=== PATIENT | female | born 1955 | race Caucasian/White ===

== ENCOUNTER 2020-10-25 14:46 | Outpatient (REF) | payer MEDICARE, OTHER, SELFPAY ==
[2020-10-25 16:03] LABS: MANUAL DIFF FLAG NO
[2020-10-25 16:14] LABS: Basophils Percent Auto 0.6 % (0-2); Eosinophils Absolute Auto 0.1 X10*3/uL (0.0-0.4); Eosinophils Percent Auto 1.8 % (0-4); Hematocrit 41.3 % (37-47); Hemoglobin 13.5 g/dl (12.0-16.0); Imm Gran Abs Auto 0.01 X10*3/uL (0.00-0.03); Imm Gran Pct Auto 0.1 % (0.0-0.4); Lymphocytes Absolute Auto 2.4 X10*3/uL (1.2-4.9); Lymphocytes Percent Auto 33.6 % (20-40); Mean Corpuscular HGB Conc 32.7 g/dl (31.0-35.0); Mean Corpuscular Hemoglobin 30.2 pg (27.0-33.0); Mean Corpuscular Volume 92.4 fL (80-98); Mean Platelet Volume 10.4 fL (9.4-12.3); Monocytes Absolute Auto 0.5 X10*3/uL (0.1-1.2); Monocytes Percent Auto 6.6 % (2-11); Neutrophils Absolute Auto 4.1 X10*3/uL (2.0-8.3); Neutrophils Percent Auto 57.3 % (45-73); Platelet Count 275 X10*3/uL (160-400); Red Blood Count 4.47 X10*6/uL (4.20-5.50); Red Cell Distribution Width 13.1 % (11.0-16.0); White Blood Count 7.2 X10*3/uL (4.8-10.8)
[2020-10-25 17:04] LABS: Erythrocyte Sedimentation Rate 3 MM/HR (0-20)
[2020-10-28 16:42] LABS: Immunoglobulin G Subclass 1 361 mg/dL (382-929); Immunoglobulin G Subclass 2 292 mg/dL (241-700); Immunoglobulin G Subclass 3 31 mg/dL (22-178); Immunoglobulin G Subclass 4 33.5 mg/dL (4-86); Immunoglobulin G Total 836 mg/dL (600-1540)
== END 2020-10-25 14:47 | disposition home or self-care (01) ==
LOC: HO.LAB 14:46
PROVIDERS: PCP Family Medicine; Visit Provider Hospitalist
DX: J42 Unspecified chronic bronchitis (principal); R06.00 Dyspnea, unspecified; G47.33 Obstructive sleep apnea (adult) (pediatric); Z79.899 Other long term (current) drug therapy
CPT/HCPCS: 36415; 82784; 82785; 85025; 85652; 86003; 99202

== ENCOUNTER → 2020-11-11 13:57 | Outpatient (REF) | payer MEDICARE, OTHER, SELFPAY | LOC: HO.SL 13:57 | PROVIDERS: PCP Family Medicine; Visit Provider Hospitalist | DX: Z13.89 Encounter for screening for other disorder (principal) ==

== ENCOUNTER 2020-11-15 13:02 | Outpatient (REF) | payer MEDICARE, OTHER, SELFPAY ==
--- NOTE | 2020-11-15 15:46 | PFT_ITS ---
FLOWS: FEV1 89% of predicted at 2.37 L. FVC 78% of predicted at 2.73 L. FEV1 to FVC ratio of 0.87. No bronchodilator response. LUNG VOLUMES: Total lung capacity 82% of predicted at 4.53 L. Residual volume 79% of predicted at 1.80 L. Slow vital capacity 84% of predicted at 2.72 L. Expiratory reserve volume 59% of predicted at 0.52 L. Diffusion capacity is mildly decreased, diffusion capacity corrects to normal after adjustment for alveolar ventilation. IMPRESSION: No obstructive or restrictive ventilatory defect. No bronchodilator response. Essentially normal pulmonary function test. MD JAQUELINE Santos/MODL / [id number]
== END 2020-11-15 13:03 | disposition home or self-care (01) ==
LOC: HO.RESP 13:02
PROVIDERS: PCP Family Medicine; Visit Provider Hospitalist
DX: R06.00 Dyspnea, unspecified (principal)
CPT/HCPCS: 94060; 94727; 94729

== ENCOUNTER → 2020-11-25 14:51 | Outpatient (BNVA) | payer MEDICARE, OTHER, SELFPAY | PROVIDERS: PCP Family Medicine; Visit Provider Hospitalist | DX: J40 Bronchitis, not specified as acute or chronic (principal); J98.4 Other disorders of lung; R06.02 Shortness of breath; G47.33 Obstructive sleep apnea (adult) (pediatric); M41.9 Scoliosis, unspecified; Z88.8 Allergy status to other drugs, medicaments and biological substances; Z79.899 Other long term (current) drug therapy | CPT/HCPCS: 99212 ==

== ENCOUNTER → 2020-11-27 09:49 | Outpatient (REF) | payer MEDICARE, OTHER, SELFPAY | LOC: HO.SL 09:49 | PROVIDERS: PCP Family Medicine; Visit Provider Hospitalist | DX: G47.33 Obstructive sleep apnea (adult) (pediatric) (principal) | CPT/HCPCS: 95806 ==

== ENCOUNTER → 2020-12-16 13:05 | Outpatient (BNVA) | payer MEDICARE, OTHER, SELFPAY | PROVIDERS: PCP Family Medicine; Visit Provider Hospitalist | DX: J40 Bronchitis, not specified as acute or chronic (principal); J98.4 Other disorders of lung; R06.00 Dyspnea, unspecified; G47.33 Obstructive sleep apnea (adult) (pediatric); M41.9 Scoliosis, unspecified | CPT/HCPCS: 99212 ==

== ENCOUNTER → 2021-06-30 20:28 | Outpatient (REF) | payer MEDICARE, OTHER, SELFPAY | LOC: HO.SL 20:28 | PROVIDERS: PCP Physician Assistant; Visit Provider Hospitalist | DX: Z13.89 Encounter for screening for other disorder (principal) ==

== ENCOUNTER 2021-11-19 11:09 | Outpatient (REF) | payer MEDICARE, OTHER, SELFPAY ==
--- NOTE | ~2021-11-19 | XR_ITS ---
EXAMINATION: XR CHEST CLINICAL INFORMATION: Disorders of lung. COMPARISON: Thoracic spine 10/01/2020 TECHNIQUE: 2 views of the chest were obtained. FINDINGS: Lungs are well-expanded and clear of acute pneumonic process. There is band-like atelectasis or scarring left upper lobe. Heart size and pulmonary vascularity is normal. There is marked dextroscoliosis stabilized with a solitary Silva willis extending from T5 to L2 vertebra. No other gross bony or the body seen. XR/XR chest 2V IMPRESSION: 1. No acute cardiopulmonary process seen. 2. There is likely chronic scarring left upper lobe. 3. No major change in dextroscoliosis and a solitary Silva willis stabilizing it.
== END 2021-11-19 11:10 | disposition home or self-care (01) ==
LOC: HO.XRAY 11:09
PROVIDERS: PCP Physician Assistant; Visit Provider Hospitalist
DX: J40 Bronchitis, not specified as acute or chronic (principal); J98.4 Other disorders of lung; M41.9 Scoliosis, unspecified; R06.00 Dyspnea, unspecified; G47.34 Idiopathic sleep related nonobstructive alveolar hypoventilation
CPT/HCPCS: 71046; 99212

== ENCOUNTER → 2022-05-18 20:30 | Outpatient (REF) | payer MEDICARE, OTHER, SELFPAY | LOC: HO.SL 20:30 | PROVIDERS: PCP Family Medicine; Visit Provider Hospitalist | DX: G47.33 Obstructive sleep apnea (adult) (pediatric) (principal) | CPT/HCPCS: 95810 ==

== ENCOUNTER → 2022-06-01 11:05 | Outpatient (BNVA) | payer MEDICARE, OTHER, SELFPAY | PROVIDERS: PCP Family Medicine; Visit Provider Hospitalist | DX: G47.33 Obstructive sleep apnea (adult) (pediatric) (principal); G47.34 Idiopathic sleep related nonobstructive alveolar hypoventilation; M41.9 Scoliosis, unspecified; J98.4 Other disorders of lung; R06.00 Dyspnea, unspecified | CPT/HCPCS: 99212 ==

== ENCOUNTER 2022-07-07 11:11 | Outpatient (REF) | payer MEDICARE, OTHER, SELFPAY ==
--- NOTE | ~2022-07-07 | XR_ITS ---
EXAMINATION: XR CHEST CLINICAL INFORMATION: Cough COMPARISON: 11/19/2021 TECHNIQUE: 2 views of the chest were obtained. FINDINGS: Spinal hardware noted. Scoliotic curvature of the spine. The lungs are well expanded. There is no focal consolidation, edema, or effusion. No pneumothorax. The cardiomediastinal silhouette is within normal limits. No acute osseous abnormality. XR/XR chest 2V IMPRESSION: No acute pulmonary finding.
== END 2022-07-07 11:12 | disposition home or self-care (01) ==
LOC: HO.HMGCX 11:11
PROVIDERS: PCP Family Medicine; Visit Provider Physician Assistant
DX: R05.9 Cough, unspecified (principal)
CPT/HCPCS: 71046

== ENCOUNTER → 2022-09-16 11:09 | Outpatient (BNVA) | payer MEDICARE, OTHER, SELFPAY | PROVIDERS: PCP Family Medicine; Visit Provider Hospitalist | DX: G47.33 Obstructive sleep apnea (adult) (pediatric) (principal); G47.34 Idiopathic sleep related nonobstructive alveolar hypoventilation; M41.9 Scoliosis, unspecified; J98.4 Other disorders of lung; R06.00 Dyspnea, unspecified; R60.0 Localized edema | CPT/HCPCS: 99212 ==

== ENCOUNTER → 2022-10-14 14:49 | Outpatient (REF) | payer MEDICARE, OTHER, SELFPAY ==
--- NOTE | 2022-10-14 15:16 | CA_ITS ---
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 The visually estimated ejection fraction is between 60-65%. Spectral Doppler is indicative of a normal filling pattern. Peak GLS is -18.3%, within normal limits. Right Ventricle Normal right ventricular cavity size and systolic function. Atria Both atria are normal in size. There is no evidence of interatrial shunt. Aortic Valve Normal aortic valve structure and function. There is no aortic valve stenosis. There is no aortic valve regurgitation. Mitral Valve Normal mitral valve structure and function. There is no mitral valve regurgitation. There is no mitral valve stenosis. Pulmonic Valve The pulmonic valve is likely normal. Tricuspid Valve Normal tricuspid valve structure. There is trace tricuspid valve regurgitation. The right ventricular systolic pressure is normal. Normal right atrial pressure. There is no evidence of pulmonary hypertension. Great Vessels All visible segments of the aorta are normal in size. The visualized portions of the pulmonary artery and branches are normal. Venous The inferior vena cava is normal in size and collapses greater than 50% with inspiration. Pericardium/Pleural There is no evidence of pericardial effusion. Prior Study Comparison No prior study available for comparison. Measurements 2D Linear Measurements IVSd: 0.88 0.6-0.9/0.6-1.0 cm LVIDd: 4.14 3.9-5.3/4.2-5.9 cm LVIDd Index: 2.27 2.4-3.2/2.2-3.1 cm/m2 LVIDs: 2.85 2.0-3.6 cm LVPWd: 0.86 0.7-1.1 cm Ao Root: 3.20 2.1-3.5 cm LA Diam: 3.20 2.7-3.8/3.0-4.0 cm LAIDs Index: 1.76 1.5-2.3 cm/m2 LV Mass: 138.28 67-162/88-224 g LV Mass Index: 75.98 43-95/49-115 g/m2 LVOT Diam: 1.90 3.0+(-)1.3 cm 2D Volumes LA Vol: 24.80 2D Systolic Function EF 4C: 58.70 >55% EF 2C: 66.60 >55% EF BiP: 62.60 >55% Mitral Valve MV Pk E: 0.83 MV PK A: 0.83 MV Decel Time: 219.00 E/A: 1.00 E'Lateral: 10.30 E'Medial: 9.79 E/E' Med: 8.50 E/E' Lat: 8.00 PHT: 64.00 MVA PHT: 3.[address] [place]: 3.78 Aortic Valve AoV Pk Ector: 1.31 AoV Mn Ector: 0.88 AoV VTI: 0.27 AoV Pk Grad: 7.00 Aov Mn Grad: 4.00 TAYLOR Cont.VTI: 2.20 LVOT LVOT Pk Ector: 1.10 LVOT Mn Ector: 0.70 LVOT VTI: 0.21 LVOT Pk Grad: 5.00 LVOT Mn Grad: 2.00 LVOT Diam: 1.90 LVOT Area: 2.84 Diastolic Function MV Pk E: 0.83 MV Pk A: 0.83 E/A: 1.00 E'Medial: 9.79 E/E' Med: 8.50 E' Laterial: 10.30 E/E' Lat: 8.00 Right Ventricle TAPSE (mm): 22.80 TVS' Ector: 11.70 Tricuspid Valve TR Pk Ector: 1.78 TR Pk Grad: 13.00 RA Press: 3.00 RVSP: 16.00 Great Vessels Aorta Ao Root-2D: 3.20 2.0-3.7 cm Ao Asc: 3.20 2.1-3.4 cm Pulmonary Valve PV Pk Ector: 0.94 Peak PV Grad: 4.00 Updated in Other Vendor System with Status of Final Sushant Barber MD electronically signed on 11/25/2022 12:47:12 PM with status of Final
== END ==
LOC: HO.CARD 14:49
PROVIDERS: PCP Family Medicine; Visit Provider Hospitalist
DX: I27.20 Pulmonary hypertension, unspecified (principal)
CPT/HCPCS: 93306

== ENCOUNTER 2022-12-23 11:16 | Outpatient (AMB) | payer MEDICARE, OTHER, SELFPAY ==
[2022-12-23 11:25] VITALS: BP 128/70; PULSE 71; O2SAT 100; BMI 25.5
--- NOTE | 2022-12-23 11:25 | MHC.OFFVIS ---
Intake Vital Signs 12/23/22 11:25 Height 5 ft 7 in Weight 163 lb 2.273 oz BMI 25.5 BP 128/70 Blood Pressure Location Lt brachial Position Sitting Pulse 71 Pulse Source Pulse Oximeter Pulse Oximetry (%) 100 Oxygen Delivery Method Room Air Intake Visit Reasons: Obstructive sleep apnea Crabber Required: No Allergies doxycycline [DOXYCYCLINE] Allergy (Severe, Verified 12/23/22 11:29) RASH methylprednisolone [From DEPO-MEDROL] Allergy (Severe, Verified 12/23/22 11:29) ANXIETY triamcinolone [From KENALOG] Allergy (Severe, Verified 12/23/22 11:29) ANXIETY HPI HPI Comments History of Present Illness Details Patient is a 67-year-old woman with a known history of significant scoliosis status post daniel placement. With significant back pain and worsening shortness of breath. The patient also has a history of significant allergies and asthma. She has been complaining worsening shortness of breath moderate severity. Sometimes she is hard for her to take a deep breath in. She feels is mainly due to the worsening scoliosis. She also complains of significant pain. She has chronic pain due to her significant scoliosis and surgical interventions. She is currently working closely with orthopedic surgery. She has had chest x-rays done in the past which were personally by me demonstrating the significant restriction due to her severe scoliosis. The patient also has significant he had daytime drowsiness. Her EPWORTH score is 10/24. She needs to have a sleep study at this time. 11/25/2020 patient is here for sick visit. The patient has been developing worsening cough shortness of breath for last several days. She denies any sick contacts. The patient not been vaccinated for COVID-19 as of yet. Based on worsening symptoms she should be tested. The meantime she is having hard expectorating. We did try to give a treatment with saline and Xopenex in the office see it would help expectorate better. She did feel some relief. Therefore will try hypertonic saline that she use home. Will also request a flutter valve that she can use after her nebulized treatment for her chest physical therapy. The patient significant scoliosis. We did repeat her pulmonary function studies recently and they did demonstrate a restrictive disease in this case related to significant scoliosis. We did compare these pulmonary function studies to her previous ones several years back they did demonstrate significant worsening of the restriction and now also with evidence diffusion impairment due to her limited expansion her lungs. Based on her pulmonary function studies, her worsening respiratory symptoms are largely due to her severe thoracic scoliosis with her failed Silva Daniel surgery. in order to improve her respiratory capacity the patient has optimized with nebulized therapy and chest physical therapy and this has been partially helpful. she does have an older lumbar brace which she does not provide her with enough support. More recently the patient did try the [employer] Peak Scoliosis Bracing system which significantly improved her respiratory symptoms. I do believe that the combination of the new TLSO brace and the respiratory therapy that the patient would have significant improvement in her pulmonary capacity and quality of life. We are still waiting for the results of her sleep study to also further address that question. 12/16/2020 the patient is here for a pulmonary follow-up visit. Since we last spoke the patient did get her brace approved and she has been very happy with the fact that has been helping. In the meantime she continues to have daytime drowsiness and significant snoring. Her Astoria score is indeed elevated 12/24. She did undergo a home sleep study and her study demonstrated significant snoring. However, her AHI was approximately 1.6 events per hour mainly with hypopneas. I did explain to the patient that at this point she does not qualify for CPAP. If however the patient continues to be symptomatic then we can consider an inpatient or in-lab study which she will provide more accurate information. In the meantime will try to work on her sleep. She does have significant insomnia. She has tried multiple medications in the past. She is able to fall asleep but a lot of times a staying asleep. She is willing to try trazodone at this time. In the meantime the patient was able to get her nebulizer from her [employer]. However, she has not gotten her Acapella valve. We did make a phone call to assist her to facilitate her chest physical therapy which will be helpful improving her respiratory status. 11/19/2021 the patient is here for a pulmonary follow-up visit. Since we last spoke she is complaining of worsening headaches. She also has daytime drowsiness with an Astoria score of 12/24. The patient did undergo an overnight oximetry demonstrating hypoxia, spending more than 6 minutes below 88%. The patient has underlying restrictive lung disease due to her scoliosis. This is likely contributing to her degree of hypoxia. The patient is also symptomatic. Will go ahead and start her on oxygen at nighttime. She already has oxygen that she was prescribed at some point because of her cluster headaches. However I will get in touch with the [employer] company to make sure that they are providing her with the concentrator that she can use at nighttime for oxygen. She will call in to 3 weeks to give us a report on her response to therapy. In meantime she continues to use her respiratory therapy with good effect. She has been using the trazodone for sleep. Otherwise the patient is without any other complaints. 06/01/2022 the patient is here for a pulmonary follow-up visit. She has multiple complaints. First of all she did go for in-lab sleep study. Unfortunately with all 4 experience for her. She felt unsafe getting to the parking lot and then when she made it into the room she was very uncomfortable. She has multiple complaints. I reached out to administration in order for her to be able to speak to somebody regarding her complaints to try to make get a better experience. In the meantime the results were nondiagnostic. She was awake all night and she was not able to get proper sleep in order to assess the question of sleep apnea. She continues use the oxygen at nighttime. Although on the 2 L was causing her to get nauseous and headaches. She also started developing some unsteadiness on her feet and some tingling in the hands. Therefore she stopped decreased down to 1.5 L and she was still getting the same issues. She is not sure his the oxygen or another issue. At this point she is going to hold off on the oxygen until her symptoms are better and then she is going to restarted 1 L per minute. Hopefully she can tolerate the lower dose until we can get a sleep study. She is going to continue to need a repeat sleep study. Her Astoria score still elevated 12/24. The patient needs to undergo a proper in-lab sleep study. I am hoping that if we can mitigate the issues that she had previously so we can redo her study. 09/16/2022 the patient is here for pulmonary follow-up visit. Overall she is doing fair. She does complaint of episodic fevers and arthralgias along with shortness of breath. She does have a diagnosis of arthritis and fibromyalgia. This are reasonable of to COVID to assess for autoimmune conditions specially since her symptoms may be all connected. In addition to that she has noticed lower extremity edema. This is not common for her. She has been wearing compression stockings. The patient continues to have daytime drowsiness. The patient is working with her primary care doctor to have the in-lab sleep study done elsewhere which she can have a better experience and also had better results. Her Astoria score continues to be elevated at over 24. She continues to respond well to the oxygen at nighttime. She wants to travel little bit and I did to make a to [employer] in order to allow her to find out ways for her to have some portability when she travels. 12/23/2022 the patient is here for pulmonary follow-up visit. She has multiple complaints. Primarily due to her sinus issue. She has been getting some sinus pressure primarily in the right side. Also affecting her right ear feels that going down to her neck area. This is resulting in headaches and also dizziness. She does have a appointment with ENT coming up in the next few weeks. In the meantime she does have some retraction of the tympanic membrane on the right and a little fluid on the left. Patient also has evidence of postnasal drip. She also describes a component vasomotor rhinitis with worsening postnasal drip and nasal discharge prior to eating. this postnasal drip results in a cough. From a respiratory status appears to be doing well. She is using her oxygen at nighttime. [facility] Medical History (Updated 12/23/22 @ 22:56 by Nik Enrique MD) Arthralgia Bronchitis Chronic restrictive lung disease Dyspnea Fever Lower extremity edema Nocturnal hypoxia ALTAF (obstructive sleep apnea) Severe scoliosis Social History (Updated 10/25/20 @ 14:58 by LISSA Tenorio) Patient Tobacco Use Status: Never used Tobacco Review of Systems Const Reports daytime sleepiness, Reports difficulty sleeping, Reports headache(s), Denies night sweats and Reports snoring ENT Denies change in voice, Reports dizziness, Reports headache(s), Denies lip swelling, Denies mouth pain, Reports nasal congestion, Reports nasal discharge and Denies tongue swelling Card Denies chest pain, Reports dyspnea and Reports dyspnea on exertion Resp Reports cough, Reports dyspnea, Reports dyspnea on exertion and Reports snoring GI Denies abdominal pain and Reports nausea Musc Reports back pain, Reports myalgias, Reports deformity, Reports arthralgias and Reports joint swelling Neuro Denies Neuro-related abnormal movements, Reports dizziness and Reports headache(s) Psych Denies no additional complaints Edil/Lymph Denies easy bleeding and Denies lymphadenopathy Aller/Immun Denies lip swelling and Denies tongue swelling Physical Exam Vital Signs: Last Vital Signs Pulse 71 12/23/22 11:25 BP 128/70 12/23/22 11:25 Pulse Ox 100 12/23/22 11:25 Oxygen Delivery Method Room Air 12/23/22 11:25 BMI result Body Mass Index 25.5 Const General: alert HEENT Ears: TM abnormal retracted on the right Throat: Yes postnasal drainage and Yes cobblestoning Neck Neck: Yes normal visual inspection, Yes full ROM and Yes no lymphadenopathy Chest Chest palpation & inspection: normal inspection of the chest Resp Auscultation: diminished lung sounds Cardio Rate: regular rate Rhythm: regular rhythm Heart sounds: S1 normal heart sound present and S2 normal heart sound present GI Palpation (GI): Soft to palpation and nontender Auscultation: normal bowel sounds Skin General skin exam: rashes and/or lesions noted Extrem General: No clubbing, No cyanosis and Yes edema Assessment & Plan Assessment & Plan (1) Sinusitis: Code(s): J32.9 - Chronic sinusitis, unspecified Qualifiers: Sinusitis location: unspecified location Chronicity: subacute Qualified Code(s): J01.90 - Acute sinusitis, unspecified (2) Severe scoliosis: Code(s): M41.9 - Scoliosis, unspecified (3) Chronic restrictive lung disease: Code(s): J98.4 - Other disorders of lung (4) Dyspnea: Code(s): R06.00 - Dyspnea, unspecified Qualifiers: Dyspnea type: dyspnea on exertion Qualified Code(s): R06.00 - Dyspnea, unspecified (5) Nocturnal hypoxia: Comment: due to her restrictive lung disease Code(s): G47.34 - Idiopathic sleep related nonobstructive alveolar hypoventilation (6) ALTAF (obstructive sleep apnea): Comment: High suspicion for ALTAF, need to repeat her sleep study Code(s): G47.33 - Obstructive sleep apnea (adult) (pediatric) Plan CPT with nebulized therapy with xopenex and hypertonic saline Acapella valve for CPT Oxygen 2 L/min while sleeping start Afrin only for 5 days Ipratropium nasal spray as needed Azythromycin x 5 days neti bottle rinsing No steroids due to adverse reactions F/U 4-6 months Medications: New azithromycin (12.5 mL) 500 mg orally; 5 days 63 mL 0RF ipratropium bromide administer into each nostril 2 sprays intranasal TID PRN 15 mL 6RF allergy symptoms Coding Level of Care Code Est Pt Level 4 (35362) Diagnoses Sinusitis J01.90 Sinusitis location: unspecified location Chronicity: subacute Severe scoliosis M41.9 Chronic restrictive lung disease J98.4 Dyspnea R06.00 Dyspnea type: dyspnea on exertion Nocturnal hypoxia G47.34 ALTAF (obstructive sleep apnea) G47.33 Time Spent (min) 18
== END 2022-12-23 11:52 | disposition home or self-care (01) ==
PROVIDERS: PCP Family Medicine; Visit Provider Hospitalist
DX: J01.90 Acute sinusitis, unspecified (principal); M41.9 Scoliosis, unspecified; J98.4 Other disorders of lung; R06.00 Dyspnea, unspecified; G47.34 Idiopathic sleep related nonobstructive alveolar hypoventilation; G47.33 Obstructive sleep apnea (adult) (pediatric)
CPT/HCPCS: 99214

== ENCOUNTER → 2022-12-23 11:16 | Outpatient (BNVA) | payer MEDICARE, OTHER, SELFPAY | PROVIDERS: PCP Family Medicine; Visit Provider Hospitalist | DX: G47.33 Obstructive sleep apnea (adult) (pediatric) (principal); G47.34 Idiopathic sleep related nonobstructive alveolar hypoventilation; J01.90 Acute sinusitis, unspecified; J98.4 Other disorders of lung; R06.00 Dyspnea, unspecified; M41.9 Scoliosis, unspecified | CPT/HCPCS: 99212 ==

== ENCOUNTER 2023-07-13 15:45 | Outpatient (REF) | payer MEDICARE, OTHER, SELFPAY ==
[2023-07-13 17:49] LABS: Basophils Percent Auto 0.4 % (0-2); Eosinophils Absolute Auto 0.1 X10*3/uL (0.0-0.4); Eosinophils Percent Auto 1.7 % (0-4); Hematocrit 41.2 % (37.0-47.0); Hemoglobin 13.3 g/dl (12.0-16.0); Imm Gran Abs Auto 0.01 X10*3/uL (0.00-0.03); Imm Gran Pct Auto 0.1 % (0.0-0.4); Lymphocytes Percent Auto 51.2 % (20-40); MANUAL DIFF FLAG NO; Mean Corpuscular HGB Conc 32.3 g/dl (31.0-35.0); Mean Corpuscular Hemoglobin 29.5 pg (27.0-33.0); Mean Corpuscular Volume 91.4 fL (80.0-98.0); Mean Platelet Volume 10.8 fL (9.4-12.3); Monocytes Absolute Auto 0.7 X10*3/uL (0.1-1.2); Monocytes Percent Auto 8.5 % (2-11); Neutrophils Percent Auto 38.1 % (45-73); Platelet Count 264 X10*3/uL (160-400); Red Blood Count 4.51 X10*6/uL (4.20-5.50); Red Cell Distribution Width 13.4 % (11.0-16.0); White Blood Count 7.8 X10*3/uL (4.8-10.8)
[2023-07-13 18:19] LABS: D Dimer High Sensitivity < 150 NG/ML
[2023-07-13 19:26] LABS: Anion Gap 12 (12-20); Blood Urea Nitrogen 11 mg/dL (9-16); Calcium 9.4 mg/dL (8.4-10.2); Carbon Dioxide 29 mmol/L (22-29); Chloride 105 mmol/L (96-108); Glucose Random 98 mg/dL (60-115); Potassium 3.4 mmol/L (3.3-5.1); Sodium 143 mmol/L (135-145)
[2023-07-13 19:29] LABS: Erythrocyte Sedimentation Rate 7 MM/HR (0-20)
[2023-07-13 19:34] LABS: Estimated Glomerular Filt Rate > 60
[2023-07-16 13:19] LABS: IgA 171 mg/dL (70-320); IgG 940 mg/dL (600-1540); IgM 48 mg/dL (50-300)
[2023-07-17 13:37] LABS: SARS COV2 IgG Positive (Negative)
== END 2023-07-13 15:46 | disposition home or self-care (01) ==
LOC: HO.LAB 15:45
PROVIDERS: PCP Family Medicine; Visit Provider Hospitalist
DX: J40 Bronchitis, not specified as acute or chronic (principal); J45.41 Moderate persistent asthma with (acute) exacerbation; J98.4 Other disorders of lung; J32.9 Chronic sinusitis, unspecified; U09.9 Post COVID-19 condition, unspecified; Z01.84 Encounter for antibody response examination; R06.00 Dyspnea, unspecified; M41.9 Scoliosis, unspecified; G47.34 Idiopathic sleep related nonobstructive alveolar hypoventilation; G47.33 Obstructive sleep apnea (adult) (pediatric); Z79.899 Other long term (current) drug therapy
CPT/HCPCS: 36415; 80048; 82784; 85025; 85379; 85652; 86769; 99212

== ENCOUNTER 2023-07-13 15:45 | Outpatient (AMB) | payer MEDICARE, OTHER, SELFPAY ==
[2023-07-13 15:48] VITALS: BMI 25.0
--- NOTE | 2023-07-13 15:48 | A.OFFVIS_ITS ---
Intake Vital Signs 07/13/23 15:48 Height 5 ft 7 in Weight 159 lb 13.362 oz BMI 25.0 Intake Visit Reasons: persistent cough/congestion It Operations Specialist Required: No Machine Stripper Cutter: Machine Stripper Cutter offered & declined Accompanied by: Self / Same As Patient Allergies doxycycline [DOXYCYCLINE] Allergy (Severe, Verified 07/13/23 15:52) RASH methylprednisolone [From DEPO-MEDROL] Allergy (Severe, Verified 07/13/23 15:52) ANXIETY triamcinolone [From KENALOG] Allergy (Severe, Verified 07/13/23 15:52) ANXIETY Medication List - Last Reconciled 07/13/23 by Anum Watson LPN azelastine 2 sprays intranasal BID PRN carisoprodol 350 mg PO QID PRN fluticasone propionate 110 mcg/actuation (Flovent HFA) 1 puff inhalation BID PRN inhalational spacing device (Aerochamber MV spacer) As directed ipratropium bromide 2 sprays intranasal TID PRN levalbuterol HCl (Xopenex) 1.25 mg (3 mL) inhalation BID 30 days levalbuterol tartrate 45 mcg/actuation (Xopenex HFA) 2 puffs inhalation Q6H PRN 30 days lorazepam 1 mg PO DAILY PRN nebulizers As directed sodium chloride 3% 4 mL inhalation BID 90 days HPI HPI Comments History of Present Illness Details Patient is a 68-year-old woman with a known history of significant scoliosis status post daniel placement. With significant back pain and worsening shortness of breath. The patient also has a history of significant allergies and asthma. She has been complaining worsening shortness of breath moderate severity. Sometimes she is hard for her to take a deep breath in. She feels is mainly due to the worsening scoliosis. She also complains of significant pain. She has chronic pain due to her significant scoliosis and surgical in terventions. She is currently working closely with orthopedic surgery. She has had chest x-rays done in the past which were personally by me demonstrating the significant restriction due to her severe scoliosis. The patient also has significant he had daytime drowsiness. Her EPWORTH score is 10/24. She needs to have a sleep study at this time. 11/25/2020 patient is here for sick visit. The patient has been developing worsening cough shortness of breath for last several days. She denies any sick contacts. The patient not been vaccinated for COVID-19 as of yet. Based on worsening symptoms she should be tested. The meantime she is having hard expectorating. We did try to give a treatment with saline and Xopenex in the office see it would help expectorate better. She did feel some relief. Therefore will try hypertonic saline that she use home. Will also request a flutter valve that she can use after her nebulized treatment for her chest physical therapy. The patient significant scoliosis. We did repeat her pulmonary function studies recently and they did demonstrate a restrictive disease in this case related to significant scoliosis. We did compare these pulmonary function studies to her previous ones several years back they did demonstrate significant worsening of the restriction and now also with evidence diffusion impairment due to her limited expansion her lungs. Based on her pulmonary function studies, her worsening respiratory symptoms are largely due to her severe thoracic scoliosis with her failed Silva Daniel surgery. in order to improve her respiratory capacity the patient has optimized with nebulized therapy and chest physical therapy and this has been partially helpful. she does have an older lumbar brace which she does not provide her with enough support. More recently the patient did try the Syndero Peak Scoliosis Bracing system which significantly improved her respiratory symptoms. I do believe that the combination of the new TLSO brace and the respiratory therapy that the patient would have significant improvement in her pulmonary capacity and quality of life. We are still waiting for the results of her sleep study to also further address that question. 12/16/2020 the patient is here for a pulmonary follow-up visit. Since we last spoke the patient did get her brace approved and she has been very happy with the fact that has been helping. In the meantime she continues to have daytime drowsiness and significant snoring. Her Turpin score is indeed elevated 04/25. She did undergo a home sleep study and her study demonstrated significant snoring. However, her AHI was approximately 1.6 events per hour mainly with hypopneas. I did explain to the patient that at this point she does not qualify for CPAP. If however the patient continues to be symptomatic then we can consider an inpatient or in-lab study which she will provide more accurate information. In the meantime will try to work on her sleep. She does have significant insomnia. She has tried multiple medications in the past. She is able to fall asleep but a lot of times a staying asleep. She is willing to try trazodone at this time. In the meantime the patient was able to get her nebulizer from her [employer] company. However, she has not gotten her Acapella valve. We did make a phone call to assist her to facilitate her chest physical therapy which will be helpful improving her respiratory status. 11/19/2021 the patient is here for a pulmonary follow-up visit. Since we last spoke she is complaining of worsening headaches. She also has daytime drowsiness with an Turpin score of 12/24. The patient did undergo an overnight oximetry demonstrating hypoxia, spending more than 6 minutes below 88%. The patient has underlying restrictive lung disease due to her scoliosis. This is likely contributing to her degree of hypoxia. The patient is also symptomatic. Will go ahead and start her on oxygen at nighttime. She already has oxygen that she was prescribed at some point because of her cluster headaches. However I will get in touch with the [employer] company to make sure that they are providing her with the concentrator that she can use at nighttime for oxygen. She will call in to 3 weeks to give us a report on her response to therapy. In meantime she continues to use her respiratory therapy with good effect. She has been using the trazodone for sleep. Otherwise the patient is without any other complaints. 06/01/2022 the patient is here for a pulm onary follow-up visit. She has multiple complaints. First of all she did go for in-lab sleep study. Unfortunately with all 4 experience for her. She felt unsafe getting to the parking lot and then when she made it into the room she was very uncomfortable. She has multiple complaints. I reached out to administration in order for her to be able to speak to somebody regarding her complaints to try to make get a better experience. In the meantime the results were nondiagnostic. She was awake all night and she was not able to get proper sleep in order to assess the question of sleep apnea. She continues use the oxygen at nighttime. Although on the 2 L was causing her to get nauseous and headaches. She also started developing some unsteadiness on her feet and some tingling in the hands. Therefore she stopped decreased down to 1.5 L and she was still getting the same issues. She is not sure his the oxygen or another issue. At this point she is going to hold off on the oxygen until her symptoms are better and then she is going to restarted 1 L per minute. Hopefully she can tolerate the lower dose until we can get a sleep study. She is going to continue to need a repeat sleep study. Her Turpin score still elevated 04/25. The patient needs to undergo a proper in-lab sleep study. I am hoping that if we can mitigate the issues that she had previously so we can redo her study. 09/16/2022 the patient is here for pulmon finn follow-up visit. Overall she is doing fair. She does complaint of episodic fevers and arthralgias along with shortness of breath. She does have a diagnosis of arthritis and fibromyalgia. This are reasonable of to COVID to assess for autoimmune conditions specially since her symptoms may be all connected. In addition to that she has noticed lower extremity edema. This is not common for her. She has been wearing compression stockings. The patient continues to have daytime drowsiness. The patient is working with her primary care doctor to have the in-lab sleep study done elsewhere which she can have a better experience and also had better results. Her Turpin score continues to be elevated at over 24. She continues to respond well to the oxygen at nighttime. She wants to travel little bit and I did to make a to [employer] in order to allow her to find out ways for her to have some portability when she travels. 12/23/2022 the patient is here for pulmonary follow-up visit. She has multiple complaints. Primarily due to her sinus issue. She has been getting some sinus pressure primarily in the right side. Also affecting her right ear feels that going down to her neck area. This is resulting in headaches and also dizziness. She does have a appointment with ENT coming up in the next few weeks. In the meantime she does have some retraction of the tympanic membrane on the right and a little fluid on the left. Patient also has evidence of postnasal drip. She also describes a component vasomotor rhinitis with worsening postnasal drip and nasal discharge prior to eating. this postnasal drip results in a cough. From a respiratory status appears to be doing well. She is using her oxygen at nighttime. 07/13/2023 the patient is here for sick visit. She developed COVID twice over May 2023. She also states that she had COVID back in May 2022. but, the patient has not been able to feel better after her recent COVID infections. She started developing worsening cough. Moderate severity. For the most part nonproductive although sometimes she does expectorate her mucus plug yellowish in color. Denies any fevers or chills. She feels some heaviness in her left side of the chest area. Denies any pleuritic chest discomfort. Denies any history of blood clots. She has noticed some lower extremity edema. Her pulse ox is reassuring. The patient does have some expiratory wheezing and a post exhalation cough. Therefore I did give her breathing treatment with Xopenex and ipratropium bromide. The patient did improve some now with audible wheezing. She is agreeable to take a small dose of prednisone. She can not tolerate high dose because of adverse effects. Will also treat her for postviral bacterial infection. The patient also will undergo blood work. Will check a D-dimer. If elevated she will need a CTA to rule out PE. I did review chest x-ray that she had a [facility] recently demonstrating no acute disease. If she continues to be symptomatic and her D-dimer is negative will consider CT scan of the chest noncontrast. Will see what the blood work comes out to be. If the patient has any worsening symptoms or if she has no better she will call the office for further evaluation. 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 Lower extremity edema Arthralgia Fever Nocturnal hypoxia Chronic restrictive lung disease Severe scoliosis Bronchitis ALTAF (obstructive sleep apnea) Dyspnea Social History (Updated 07/13/23 @ 15:55 by Anum Watson LPN) Patient Tobacco Use Status: Never used Tobacco Review of Systems Const Reports daytime sleepiness, Reports fatigue, Reports headache(s) and Reports snoring ENT Denies change in voice, Reports dizziness, Reports headache(s), Denies lip swelling, Denies mouth pain, Reports nasal congestion, Reports nasal discharge and Denies tongue swelling Card Denies chest pain, Reports dyspnea and Reports dyspnea on exertion Resp Reports chest congestion, Reports cough, Reports dyspnea, Reports dyspnea on exertion, Reports snoring and Reports wheezing GI Denies abdominal pain and Reports nausea Musc Reports back pain, Reports myalgias, Reports deformity, Reports arthralgias and Reports joint swelling Neuro Denies Neuro-related abnormal movements, Reports dizziness and Reports headache(s) Psych Denies no additional complaints Endo Reports fatigue Edil/Lymph Denies easy bleeding and Denies lymphadenopathy Aller/Immun Denies lip swelling, Denies tongue swelling and Reports wheezing Physical Exam Vital Signs: BMI result Body Mass Index 25.0 Const General: alert HEENT Ears: TM abnormal retracted on the right Throat: Yes postnasal drainage and Yes cobblestoning Neck Neck: Yes normal visual inspection, Yes full ROM and Yes no lymphadenopathy Chest Chest palpation & inspection: normal inspection of the chest Resp Effort & Inspection: Actively coughing and prolonged expiratory phase Auscultation: wheezes and diminished lung sounds Cardio Rate: regular rate Rhythm: regular rhythm Heart sounds: S1 normal heart sound present and S2 normal heart sound present GI Palpation (GI): Soft to palpation and nontender Auscultation: normal bowel sounds Skin General skin exam: rashes and/or lesions noted Extrem General: No clubbing, No cyanosis and Yes edema Assessment & Plan Assessment & Plan (1) Reactive airway disease with acute exacerbation: Code(s): J45.901 - Unspecified asthma with (acute) exacerbation Qualifiers: Asthma severity: moderate Asthma persistence: persistent Qualified Code(s): J45.41 - Moderate persistent asthma with (acute) exacerbation (2) Bronchitis: Code(s): J40 - Bronchitis, not specified as acute or chronic (3) 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, unspecified (4) Chronic restrictive lung disease: Code(s): J98.4 - Other disorders of lung (5) Dyspnea: Code(s): R06.00 - Dyspnea, unspecified Qualifiers: Dyspnea type: dyspnea on exertion Qualified Code(s): R06.00 - Dyspnea, unspecified (6) Severe scoliosis: Code(s): M41.9 - Scoliosis, unspecified (7) Nocturnal hypoxia: Comment: due to her restrictive lung disease Code(s): G47.34 - Idiopathic sleep related nonobstructive alveolar hypoventilation (8) ALTAF (obstructive sleep apnea): Comment: High suspicion for ALTAF, need to repeat her sleep study Code(s): G47.33 - Obstructive sleep apnea (adult) (pediatric) Plan CPT with nebulized therapy with xopenex and ipratropium start Zpack start ervin dose prednisone taper Acapella valve for CPT Oxygen 2 L/min while sleeping Ipratropium nasal spray as needed Bloodwork CXR non diagnostic ([facility]) may need t CT chest if no better F/U 3-4 months Orders: Orders Basic Metabolic Panel Today J40 - Bronchitis, not specified as acute or chronic, U09.9 - Post COVID-19 condition, unspecified D Dimer High Sensitivity Today J40 - Bronchitis, not specified as acute or chronic, U09.9 - Post COVID-19 condition, unspecified Erythrocyte Sedimentation Rate Today J40 - Bronchitis, not specified as acute or chronic, U09.9 - Post COVID-19 condition, unspecified SARS COV2 IgG Today J40 - Bronchitis, not specified as acute or chronic, U09.9 - Post COVID-19 condition, unspecified Immunoglobulins,IgG IgA IgM Today J32.9 - Chronic sinusitis, unspecified, U09.9 - Post COVID-19 condition, unspecified Complete Blood Count Auto Diff Today J40 - Bronchitis, not specified as acute or chronic, U09.9 - Post COVID-19 condition, unspecified AMB Nebulizer Treatment Today J45.901 - Unspecified asthma with (acute) exacerbation Medications: New azithromycin 500 mg PO DAILY 5 days 5 tabs 0RF prednisone PO daily; Take 2 tabs daily x 7 days, then 1 tab x 7 days 14 days 21 tabs 0RF benzonatate 200 mg PO BID 30 days PRN 60 caps 0RF cough levalbuterol HCl 1.25 mg (3 mL) inhalation ONCE 3 mL 0RF J45.901 - Unspecified asthma with (acute) exacerbation Changed From levalbuterol HCl (Xopenex) 1.25 mg (3 mL) inhalation BID 30 days 180 mL 6RF J44.9 - Chronic obstructive pulmonary disease, unspecified To levalbuterol HCl 1.25 mg (3 mL) inhalation BID 30 days 180 mL 6RF J44.9 - Chronic obstructive pulmonary disease, unspecified Refilled levalbuterol tartrate 45 mcg/actuation (Xopenex HFA) 2 puffs inhalation Q6H 30 days PRN 15 grams 11RF shortness of breath or wheezing J45.909 - Unspecified asthma, uncomplicated Coding Level of Care Code Est Pt Level 4 (77561) Diagnoses Moderate persistent reactive airway disease with acute exacerbation J45.41 Asthma severity: moderate Asthma persistence: persistent Bronchitis J40 Cant-[id number]-[id number] syndrome U09.9 Chronic restrictive lung disease J98.4 Dyspnea on exertion R06.00 Dyspnea type: dyspnea on exertion Severe scoliosis M41.9 Nocturnal hypoxia G47.34 ALTAF (obstructive sleep apnea) G47.33 Time Spent (min) 20
== END 2023-07-13 16:25 | disposition home or self-care (01) ==
PROVIDERS: PCP Family Medicine; Visit Provider Hospitalist
DX: J45.41 Moderate persistent asthma with (acute) exacerbation (principal); J40 Bronchitis, not specified as acute or chronic; U09.9 Post COVID-19 condition, unspecified; J98.4 Other disorders of lung; R06.00 Dyspnea, unspecified; M41.9 Scoliosis, unspecified; G47.34 Idiopathic sleep related nonobstructive alveolar hypoventilation; G47.33 Obstructive sleep apnea (adult) (pediatric)
CPT/HCPCS: 99214

== ENCOUNTER 2023-08-13 11:06 | Outpatient (REF) | payer MEDICARE, OTHER, SELFPAY ==
--- NOTE | ~2023-08-13 | CT_ITS ---
EXAMINATION: CT CHEST WITHOUT CONTRAST CLINICAL INFORMATION: Chest pain COMPARISON: None available. TECHNIQUE: Multidetector volumetric CT imaging of the chest was done. Axial MIP volume rendering provided. Sagittal and coronal reformatted images were obtained. This CT examination was performed using dose optimization techniques as appropriate, variously including the following: *Automated exposure control *Adjustment of mA and/or kV according to patient size (this includes techniques or standardized protocols for targeted exams where dose is matched to indication/reason for exam; i.e. extremities or head) *Use of iterative reconstruction technique DLP: 104 mGy-cm FINDINGS: ASSEMBLY LINE INSPECTOR: Scoliosis and Silva rods. LUNGS: Trachea and bronchi are patent. Minor biapical pleural-parenchymal thickening. Scattered atelectasis. No consolidations or groundglass opacities. 3 mm RML nodule, 5:358. 2 mm RLL nodule, 5:148 MEDIASTINUM: Heterogeneous thyroid with the left thyroid enlargement and likely multiple left hypodense nodules, largest approximately 1.4 cm. No pathologic lymphadenopathy. Nonenlarged heart. No pericardial effusion. All nonaneurysmal aorta. Nonenlarged pulmonary arteries. CORONARY ARTERY CALCIFICATION: None visualized on this study. PLEURA: There is no pleural effusion. Minimal right posterior pleural thickening, 5:158 No pleural mass or thickening. AXILLA: No lymphadenopathy. UPPER ABDOMEN: Unremarkable. OSSEOUS STRUCTURES: Severe scoliosis with Silva rods. CT/CT chest wo IV con IMPRESSION: No acute cardiopulmonary process. Pulmonary nodules, none larger than 3 mm for which no routine follow-up necessarily required. Enlarged heterogeneous thyroid with likely left thyroid nodules. Thyroid ultrasound recommended. Severe scoliosis with Silva rods. Fleischner guidelines were followed.
== END 2023-08-13 11:07 | disposition home or self-care (01) ==
LOC: HO.CT 11:06
PROVIDERS: PCP Family Medicine; Visit Provider Hospitalist
DX: R07.9 Chest pain, unspecified (principal)
CPT/HCPCS: 71250

== ENCOUNTER 2023-09-24 10:13 | Outpatient (AMB) | payer MEDICARE, OTHER, SELFPAY ==
[2023-09-24 10:17] VITALS: BP 110/60; PULSE 71; O2SAT 99; BMI 23.8
--- NOTE | 2023-09-24 10:17 | A.OFFVIS_ITS ---
Vital Signs 09/24/23 10:17 Height 5 ft 7 in Weight 152 lb BMI 23.8 BP 110/60 Blood Pressure Location Lt brachial Position Sitting Pulse 71 Pulse Source Pulse Oximeter Pulse Oximetry (%) 99 Oxygen Delivery Method Room Air Intake Visit Reasons: Post Covid Combination Technician Required: No Allergies doxycycline [DOXYCYCLINE] Allergy (Severe, Verified 09/24/23 10:19) RASH methylprednisolone [From DEPO-MEDROL] Allergy (Severe, Verified 09/24/23 10:19) ANXIETY triamcinolone [From KENALOG] Allergy (Severe, Verified 09/24/23 10:19) ANXIETY HPI Comments Details: Patient is a 68-year-old woman with a known history of significant scoliosis status post daniel placement. With significant back pain and worsening shortness of breath. The patient also has a history of significant allergies and asthma. She has been complaining worsening shortness of breath moderate severity. Sometimes she is hard for her to take a deep breath in. She feels is mainly due to the worsening scoliosis. She also complains of significant pain. She has chronic pain due to her significant scoliosis and surgical interventions. She is currently working closely with orthopedic surgery. She has had chest x-rays done in the past which were personally by me demonstrating the significant restriction due to her severe scoliosis. The patient also has significant he had daytime drowsiness. Her EPWORTH score is 10/24. She needs to have a sleep study at this time. 11/25/2020 patient is here for sick visit. The patient has been developing worsening cough shortness of breath for last several days. She denies any sick contacts. The patient not been vaccinated for COVID-19 as of yet. Based on worsening symptoms she should be tested. The meantime she is having hard expectorating. We did try to give a treatment with saline and Xopenex in the office see it would help expectorate better. She did feel some relief. Therefore will try hypertonic saline that she use home. Will also request a flutter valve that she can use after her nebulized treatment for her chest physical therapy. The patient significant scoliosis. We did repeat her pulmonary function studies recently and they did demonstrate a restrictive disease in this case related to significant scoliosis. We did compare these pulmonary function studies to her previous ones several years back they did demonstrate significant worsening of the restriction and now also with evidence diffusion impairment due to her limited expansion her lungs. Based on her pulmonary function studies, her worsening respiratory symptoms are largely due to her severe thoracic scoliosis with her failed Silva Daniel surgery. in order to improve her respiratory capacity the patient has optimized with nebulized therapy and chest physical therapy and this has been partially helpful. she does have an older lumbar brace which she does not provide her with enough support. More recently the patient did try the [employer] Peak Scoliosis Bracing system which significantly improved her respiratory symptoms. I do believe that the combination of the new TLSO brace and the respiratory therapy that the patient would have significant improvement in her pulmonary capacity and quality of life. We are still waiting for the results of her sleep study to also further address that question. 12/16/2020 the patient is here for a pulmonary follow-up visit. Since we last spoke the patient did get her brace approved and she has been very happy with the fact that has been helping. In the meantime she continues to have daytime drowsiness and significant snoring. Her [place] score is indeed elevated 12/24. She did undergo a home sleep study and her study demonstrated significant snoring. However, her AHI was approximately 1.6 events per hour mainly with hypopneas. I did explain to the patient that at this point she does not qualify for CPAP. If however the patient continues to be symptomatic then we can consider an inpatient or in-lab study which she will provide more accurate information. In the meantime will try to work on her sleep. She does have significant insomnia. She has tried multiple medications in the past. She is able to fall asleep but a lot of times a staying asleep. She is willing to try trazodone at this time. In the meantime the patient was able to get her nebulizer from her [employer]. However, she has not gotten her Acapella valve. We did make a phone call to assist her to facilitate her chest physical therapy which will be helpful improving her respiratory status. 11/19/2021 the patient is here for a pulmonary follow-up visit. Since we last spoke she is complaining of worsening headaches. She also has daytime drowsiness with an [place] score of 12/24. The patient did undergo an overnight oximetry demonstrating hypoxia, spending more than 6 minutes below 88%. The patient has underlying restrictive lung disease due to her scoliosis. This is likely contributing to her degree of hypoxia. The patient is also symptomatic. Will go ahead and start her on oxygen at nighttime. She already has oxygen that she was prescribed at some point because of her cluster headaches. However I will get in touch with the [employer] company to make sure that they are providing her with the concentrator that she can use at nighttime for oxygen. She will call in to 3 weeks to give us a report on her response to therapy. In meantime she continues to use her respiratory therapy with good effect. She has been using the trazodone for sleep. Otherwise the patient is without any other complaints. 06/01/2022 the patient is here for a pulmonary follow-up visit. She has multiple complaints. First of all she did go for in-lab sleep study. Unfortunately with all 4 experience for her. She felt unsafe getting to the parking lot and then when she made it into the room she was very uncomfortable. She has multiple complaints. I reached out to administration in order for her to be able to speak to somebody regarding her complaints to try to make get a better experience. In the meantime the results were nondiagnostic. She was awake all night and she was not able to get proper sleep in order to assess the question of sleep apnea. She continues use the oxygen at nighttime. Although on the 2 L was causing her to get nauseous and headaches. She also started developing some unsteadiness on her feet and some tingling in the hands. Therefore she stopped decreased down to 1.5 L and she was still getting the same issues. She is not sure his the oxygen or another issue. At this point she is going to hold off on the oxygen until her symptoms are better and then she is going to restarted 1 L per minute. Hopefully she can tolerate the lower dose until we can get a sleep study. She is going to continue to need a repeat sleep study. Her [place] score still elevated 1224. The patient needs to undergo a proper in-lab sleep study. I am hoping that if we can mitigate the issues that she had previously so we can redo her study. 09/16/2022 the patient is here for pulmonary follow-up visit. Overall she is doing fair. She does complaint of episodic fevers and arthralgias along with shortness of breath. She does have a diagnosis of arthritis and fibromyalgia. This are reasonable of to COVID to assess for autoimmune conditions specially since her symptoms may be all connected. In addition to that she has noticed lower extremity edema. This is not common for her. She has been wearing compression stockings. The patient continues to have daytime drowsiness. The patient is working with her primary care doctor to have the in-lab sleep study done elsewhere which she can have a better experience and also had better results. Her [place] score continues to be elevated at over 24. She continues to respond well to the oxygen at nighttime. She wants to travel little bit and I did to make a to [facility] in order to allow her to find out ways for her to have some portability when she travels. 12/23/2022 the patient is here for pulmonary follow-up visit. She has multiple complaints. Primarily due to her sinus issue. She has been getting some sinus pressure primarily in the right side. Also affecting her right ear feels that going down to her neck area. This is resulting in headaches and also dizziness. She does have a appointment with ENT coming up in the next few weeks. In the meantime she does have some retraction of the tympanic membrane on the right and a little fluid on the left. Patient also has evidence of postnasal drip. She also describes a component vasomotor rhinitis with worsening postnasal drip and nasal discharge prior to eating. this postnasal drip results in a cough. From a respiratory status appears to be doing well. She is using her oxygen at nighttime. 07/13/2023 the patient is here for sick visit. She developed COVID twice over May 2023. She also states that she had COVID back in May 2022. but, the patient has not been able to feel better after her recent COVID infections. She started developing worsening cough. Moderate severity. For the most part nonproductive although sometimes she does expectorate her mucus plug yellowish in color. Denies any fevers or chills. She feels some heaviness in her left side of the chest area. Denies any pleuritic chest discomfort. Denies any history of blood clots. She has noticed some lower extremity edema. Her pulse ox is reassuring. The patient does have some expiratory wheezing and a post exhalation cough. Therefore I did give her breathing treatment with Xopenex and ipratropium bromide. The patient did improve some now with audible wheezing. She is agreeable to take a small dose of prednisone. She can not tolerate high dose because of adverse effects. Will also treat her for postviral bacterial infection. The patient also will undergo blood work. Will check a D-dimer. If elevated she will need a CTA to rule out PE. I did review chest x-ray that she had a [facility] recently demonstrating no acute disease. If she continues to be symptomatic and her D-dimer is negative will consider CT scan of the chest noncontrast. Will see what the blood work comes out to be. If the patient has any worsening symptoms or if she has no better she will call the office for further evaluation. 09/24/2023 the patient is here for a pulmonary follow-up visit. The patient is still struggling after her COVID infection. She is followed closely by Infectious Disease. 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 She will continue working closely with Infectious Disease adjusting the dose. In the meantime the patient does have history sleep apnea. She does use oxygen at nighttime. She had a very limited sleep study in the past. Her [place] score is significantly elevated at 14 over 24. The patient needs to have a repeat in-lab sleep study at this time. Will requested at [facility] were hopefully she has a better experience. In addition to that she has been using the Asmanex. She has been having hard time expectorating. She was were wondering about a percussion vest although I explained to her that with her significant scoliosis and back pain in the fact that she does not have bronchiectasis would be a good option for her. She does have a Acapella valve. She should continue with the Xopenex followed by the hypertonic saline and then using the Acapella valve for chest PT. she will do that for a few weeks. If the patient is no better then she will call me and I will add azithromycin to her regimen. Will try to minimize medications to her patient regimen because of her adverse effects. If the patient is still not feeling better we can consider bronchoscopy for diagnostic and both therapeutic intervention. I did review her CT scan with her. The patient does have some significant scoliosis and some areas of atelectasis. 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 Lower extremity edema Arthralgia Fever Nocturnal hypoxia Chronic restrictive lung disease Severe scoliosis Bronchitis ALTAF (obstructive sleep apnea) Dyspnea Social History (Updated 07/13/23 @ 15:55 by Anum Watson LPN) Patient Tobacco Use Status: Never used Tobacco Review of Systems Const Reports daytime sleepiness, Reports fatigue, Reports headache(s) and Reports snoring ENT Denies change in voice, Reports dizziness, Reports headache(s), Denies lip swelling, Denies mouth pain, Reports nasal congestion, Reports nasal discharge and Denies tongue swelling Card Denies chest pain, Reports dyspnea and Reports dyspnea on exertion Resp Reports chest congestion, Reports cough, Reports dyspnea, Reports dyspnea on exertion, Reports snoring and Reports wheezing GI Denies abdominal pain and Reports nausea Musc Reports back pain, Reports myalgias, Reports deformity, Reports arthralgias and Reports joint swelling Neuro Denies Neuro-related abnormal movements, Reports dizziness and Reports headache(s) Psych Denies no additional complaints Endo Reports fatigue Edil/Lymph Denies easy bleeding and Denies lymphadenopathy Aller/Immun Denies lip swelling, Denies tongue swelling and Reports wheezing Physical Exam Vital Signs: Last Vital Signs Pulse 71 09/24/23 10:17 BP 110/60 09/24/23 10:17 Pulse Ox 99 09/24/23 10:17 Oxygen Delivery Method Room Air 09/24/23 10:17 BMI result Body Mass Index 23.8 Const General: alert HEENT Ears: TM abnormal retracted on the right Throat: Yes postnasal drainage and Yes cobblestoning Neck Neck: Yes normal visual inspection, Yes full ROM and Yes no lymphadenopathy Chest Chest palpation & inspection: normal inspection of the chest Resp Effort & Inspection: normal respiratory effort and Actively coughing Auscultation: no wheezes and diminished lung sounds Cardio Rate: regular rate Rhythm: regular rhythm Heart sounds: S1 normal heart sound present and S2 normal heart sound present GI Palpation (GI): Soft to palpation and nontender Auscultation: normal bowel sounds Skin General skin exam: rashes and/or lesions noted Extrem General: No clubbing, No cyanosis and Yes edema Results Reviewed Results Reviewed: ? Diagnostics Subcategory All Activity ??:?? All Time ??:?? All Subcategories Filter Laboratory Imaging Microbiology Pathology Blood Bank Tests Cardiovascular Other Specialty DATE TYPE STATUS REF RANGE/AUTHOR Hx 08/13/23 11:[address] Signed Moriah Preston 07/07/22 11:20 Chest X-Ray Signed Kang Mabry 11/19/21 12:04 Chest X-Ray Signed Jasvir Frank 11/10/21 06:30 Diagnostic Report, External Pulse Oximetry Report ([facility]) 10/04/14 19:00 Diagnostic Report, External Pulmonology Dandre [place] PFT Report([facility]) DANDRE LAKE MD, Nancy R Amb 68, F?1955 MRN#? [id number] Departed Room 3 DEP AMB,?HO.HPS??? 5ft 7in 152lb BSA: 1.81m? BMI: 23.8kg/m? Visit Date: 09/24/23 Resus Status Not Addressed No Hx Avail Historical Visits Allergies doxycycline (DOXYCYCLINE) RASH methylprednisolone (From DEPO-MEDROL) ANXIETY triamcinolone (From KENALOG) ANXIETY Medications Prescription Monitoring Program Active azelastine 2 spraysintranasalBIDPRN benzonatate 200 hmVWQCKOMZ12 days carisoprodol 350 mgPOQIDPRN inhalational spacing device(Aerochamber MV spacer) See Rx Instructions ipratropium bromide 2 spraysintranasalTIDPRN levalbuterol HCl 1.25 mg(3 mL)vomeymbjfuBUV19 days levalbuterol HCl 1.25 mg(3 mL)inhalationONCE lorazepam 1 mgPODAILYPRN mometasone 100 mcg/actuation(Asmanex HFA) 2 cuhsuhteljmevatLOH90 days naltrexone PO nebulizers See Rx Instructions Oxygen Home Use See Rx Instructions sodium chloride 3% 4 sTvhrmlkpmtwUHG49 days Xopenex HFA 45 mcg/actuation(levalbuterol tartrate) 2 haqradprqcwkoqdD9TBIY41 days amoxicillin-pot clavulanate 400-57 mg/5 mL 10 mLPOBID7 days Discontinued 09/24/23 azithromycin 500 mgPODAILY5 days Discontinued 09/24/23 fluticasone propionate 110 mcg/actuation(Flovent HFA) 1 puffinhalationBIDPRN Cancelled 09/24/23 fluticasone propionate 110 mcg/actuation 2 wdipbcoswkmuluuZPI80 days Discontinued 09/24/23 prednisone See Rx Instructions Discontinued 09/24/23 Problems HCC Reactive airway disease with acute exacerbation [id number] syndrome Sinusitis Lower extremity edema Arthralgia Fever Nocturnal hypoxia Chronic restrictive lung disease Severe scoliosis Bronchitis ALTAF (obstructive sleep apnea) Dyspnea Vitals ? 07/13/23 15:48 Today 10:17 Temp ? ? BP ? 110/60 Pulse ? 71 Resp Rate ? ? O2 Sat ? 99 Height 5 ft 7 in 5 ft 7 in Weight 159 lb 13.362 oz 152 lb BMI 25.0 23.8 Outstanding Orders [facility] Special Indicators Patient Widget No Data to Display Diagnostics Reports Kim Doan??68??F??1955 ? Allergy/Adv: doxycycline, methylprednisolone, triamcinolone (More??) Close Chest CT (Signed) Moriah Preston - 08/13/23 Chest X-Ray (Signed) Kang Mabry - 07/07/22 Chest X-Ray (Signed) Jasvir Frank - 11/19/21 Diagnostic Report, External 11/10/21 Diagnostic Report, External Pulmonology DANDRE Witt MD - 10/04/14 Launch?Image [place] [address] CT Scan Report Signed Patient: Kim Doan MR#: [id number] : 1955 Acct:[id number] Age/Sex: 68 / F ADM Date: 08/13/23 Loc: HO.CT Attending Dr: Nik Enrique MD Ordering Physician: Nik Enrique MD Date of Service: 08/13/23 Procedure(s): CT chest wo IV con Accession Number(s): [id number] cc: Eulogio Anthony MD; Nik Enrique MD~ EXAMINATION: CT CHEST WITHOUT CONTRAST CLINICAL INFORMATION: Chest pain COMPARISON: None available. TECHNIQUE: Multidetector volumetric CT imaging of the chest was done. Axial MIP volume rendering provided. Sagittal and coronal reformatted images were obtained. This CT examination was performed using dose optimization techniques as appropriate, variously including the following: *Automated exposure control *Adjustment of mA and/or kV according to patient size (this includes techniques or standardized protocols for targeted exams where dose is matched to indication/reason for exam; i.e. extremities or head) *Use of iterative reconstruction technique DLP: 104 mGy-cm FINDINGS: FINANCE LECTURER: Scoliosis and Silva rods. LUNGS: Trachea and bronchi are patent. Minor biapical pleural-parenchymal thickening. Scattered atelectasis. No consolidations or groundglass opacities. 3 mm RML nodule, 5:358. 2 mm RLL nodule, 5:148 MEDIASTINUM: Heterogeneous thyroid with the left thyroid enlargement and likely multiple left hypodense nodules, largest approximately 1.4 cm. No pathologic lymphadenopathy. Nonenlarged heart. No pericardial effusion. All nonaneurysmal aorta. Nonenlarged pulmonary arteries. CORONARY ARTERY CALCIFICATION: None visualized on this study. PLEURA: There is no pleural effusion. Minimal right posterior pleural thickening, 5:158 No pleural mass or thickening. AXILLA: No lymphadenopathy. UPPER ABDOMEN: Unremarkable. OSSEOUS STRUCTURES: Severe scoliosis with Silva rods. CT/CT chest wo IV con IMPRESSION: No acute cardiopulmonary process. Pulmonary nodules, none larger than 3 mm for which no routine follow-up necessarily required. Enlarged heterogeneous thyroid with likely left thyroid nodules. Thyroid ultrasound recommended. Severe scoliosis with Silva rods. Fleischner guidelines were followed. Dictated By: Moriah Preston MD Signed By: <Electronically signed by Moriah Preston MD in OV> 08/20/23 0804 DD/ 1134 TD/TT: Carcass Trimmer: Assessment & Plan Assessment & Plan (1) Reactive airway disease with acute exacerbation: Code(s): J45.901 - Unspecified asthma with (acute) exacerbation Category: Medical Qualifiers: Asthma persistence: persistent Asthma severity: moderate Qualified Code(s): J45.41 - Moderate persistent asthma with (acute) exacerbation (2) Bronchitis: Code(s): J40 - Bronchitis, not specified as acute or chronic Category: Medical (3) [id number] syndrome: Code(s): U09.9 - Post COVID-19 condition, unspecified Category: Medical (4) Chronic restrictive lung disease: Code(s): J98.4 - Other disorders of lung Category: Medical (5) Dyspnea: Code(s): R06.00 - Dyspnea, unspecified Category: Medical Qualifiers: Dyspnea type: dyspnea on exertion Qualified Code(s): R06.00 - Dyspnea, unspecified (6) Severe scoliosis: Code(s): M41.9 - Scoliosis, unspecified Category: Medical (7) Nocturnal hypoxia: Comment: due to her restrictive lung disease Code(s): G47.34 - Idiopathic sleep related nonobstructive alveolar hypoventilation Category: Medical (8) ALTAF (obstructive sleep apnea): Comment: High suspicion for ALTAF, need to repeat her sleep study Code(s): G47.33 - Obstructive sleep apnea (adult) (pediatric) Category: Medical Plan CPT with nebulized therapy with xopenex and hypertonic saline Acapella valve for CPT Oxygen 2 L/min while sleeping Ipratropium nasal spray as needed sputum cx consider bronchoscopy if no improvement in lab PSG, pt prefers [facility] F/U 3-4 months Orders: Orders RT PSG in-lab sleep study 09/24/23 G47.33 - Obstructive sleep apnea (adult) (pediatric) Sputum Cult + Gram stain 09/24/23 J45.41 - Moderate persistent asthma with (acute) exacerbation Coding Level of Care Code Est Pt Level 4 (80041) Diagnoses Moderate persistent reactive airway disease with acute exacerbation J45.41 Asthma persistence: persistent Asthma severity: moderate Bronchitis J40 Sibu-ZGRQH-01 syndrome U09.9 Chronic restrictive lung disease J98.4 Dyspnea on exertion R06.00 Dyspnea type: dyspnea on exertion Severe scoliosis M41.9 Nocturnal hypoxia G47.34 ALTAF (obstructive sleep apnea) G47.33 Time Spent (min) 20
== END 2023-09-24 10:43 | disposition home or self-care (01) ==
PROVIDERS: PCP Family Medicine; Visit Provider Hospitalist
DX: J45.41 Moderate persistent asthma with (acute) exacerbation (principal); J40 Bronchitis, not specified as acute or chronic; U09.9 Post COVID-19 condition, unspecified; J98.4 Other disorders of lung; R06.00 Dyspnea, unspecified; M41.9 Scoliosis, unspecified; G47.34 Idiopathic sleep related nonobstructive alveolar hypoventilation; G47.33 Obstructive sleep apnea (adult) (pediatric)
CPT/HCPCS: 99214

== ENCOUNTER → 2023-09-24 10:13 | Outpatient (BNVA) | payer MEDICARE, OTHER, SELFPAY | PROVIDERS: PCP Family Medicine; Visit Provider Hospitalist | DX: J45.41 Moderate persistent asthma with (acute) exacerbation (principal); J40 Bronchitis, not specified as acute or chronic; J98.4 Other disorders of lung; R06.00 Dyspnea, unspecified; G93.32 Myalgic encephalomyelitis/chronic fatigue syndrome; U09.9 Post COVID-19 condition, unspecified; G47.34 Idiopathic sleep related nonobstructive alveolar hypoventilation; G47.33 Obstructive sleep apnea (adult) (pediatric); M41.9 Scoliosis, unspecified; Z99.81 Dependence on supplemental oxygen | CPT/HCPCS: 99212 ==

== ENCOUNTER 2023-11-11 10:55 | Outpatient (AMB) | payer MEDICARE, OTHER, SELFPAY ==
--- NOTE | 2023-11-11 11:04 | A.OFFVIS_ITS ---
Vital Signs 11/11/23 11:05 Height 5 ft 7 in Weight 151 lb 14.376 oz BMI 23.8 BP 118/60 Blood Pressure Location Lt brachial Position Sitting Pulse 68 Pulse Source Pulse Oximeter Pulse Oximetry (%) 97 Oxygen Delivery Method Room Air Intake Visit Reasons: Post Covid Clinical Partner Required: No Allergies doxycycline [DOXYCYCLINE] Allergy (Severe, Verified 11/11/23 11:08) RASH methylprednisolone [From DEPO-MEDROL] Allergy (Severe, Verified 11/11/23 11:08) ANXIETY triamcinolone [From KENALOG] Allergy (Severe, Verified 11/11/23 11:08) ANXIETY HPI Comments Details: Patient is a 68-year-old woman with a known history of significant scoliosis status post daniel placement. With significant back pain and worsening shortness of breath. The patient also has a history of significant allergies and asthma. She has been complaining worsening shortness of breath moderate severity. Sometimes she is hard for her to take a deep breath in. She feels is mainly due to the worsening scoliosis. She also complains of significant pain. She has chronic pain due to her significant scoliosis and surgical interventions. She is currently working closely with orthopedic surgery. She has had chest x-rays done in the past which were personally by me demonstrating the significant restriction due to her severe scoliosis. The patient also has significant he had daytime drowsiness. Her EPWORTH score is 10/24. She needs to have a sleep study at this time. 11/25/2020 patient is here for sick visit. The patient has been developing worsening cough shortness of breath for last several days. She denies any sick contacts. The patient not been vaccinated for COVID-19 as of yet. Based on worsening symptoms she should be tested. The meantime she is having hard expectorating. We did try to give a treatment with saline and Xopenex in the office see it would help expectorate better. She did feel some relief. Therefore will try hypertonic saline that she use home. Will also request a flutter valve that she can use after her nebulized treatment for her chest physical therapy. The patient significant scoliosis. We did repeat her pulmonary function studies recently and they did demonstrate a restrictive disease in this case related to significant scoliosis. We did compare these pulmonary function studies to her previous ones several years back they did demonstrate significant worsening of the restriction and now also with evidence diffusion impairment due to her limited expansion her lungs. Based on her pulmonary function studies, her worsening respiratory symptoms are largely due to her severe thoracic scoliosis with her failed Silva Daniel surgery. in order to improve her respiratory capacity the patient has optimized with nebulized therapy and chest physical therapy and this has been partially helpful. she does have an older lumbar brace which she does not provide her with enough support. More recently the patient did try the Md7 Peak Scoliosis Bracing system which significantly improved her respiratory symptoms. I do believe that the combination of the new TLSO brace and the respiratory therapy that the patient would have significant improvement in her pulmonary capacity and quality of life. We are still waiting for the results of her sleep study to also further address that question. 12/16/2020 the patient is here for a pulmonary follow-up visit. Since we last spoke the patient did get her brace approved and she has been very happy with the fact that has been helping. In the meantime she continues to have daytime drowsiness and significant snoring. Her Helvetia score is indeed elevated 12/24. She did undergo a home sleep study and her study demonstrated significant snoring. However, her AHI was approximately 1.6 events per hour mainly with hypopneas. I did explain to the patient that at this point she does not qualify for CPAP. If however the patient continues to be symptomatic then we can consider an inpatient or in-lab study which she will provide more accurate information. In the meantime will try to work on her sleep. She does have significant insomnia. She has tried multiple medications in the past. She is able to fall asleep but a lot of times a staying asleep. She is willing to try trazodone at this time. In the meantime the patient was able to get her nebulizer from her [employer]. However, she has not gotten her Acapella valve. We did make a phone call to assist her to facilitate her chest physical therapy which will be helpful improving her respiratory status. 11/19/2021 the patient is here for a pulmonary follow-up visit. Since we last spoke she is complaining of worsening headaches. She also has daytime drowsiness with an Helvetia score of 12/24. The patient did undergo an overnight oximetry demonstrating hypoxia, spending more than 6 minutes below 88%. The patient has underlying restrictive lung disease due to her scoliosis. This is likely contributing to her degree of hypoxia. The patient is also symptomatic. Will go ahead and start her on oxygen at nighttime. She already has oxygen that she was prescribed at some point because of her cluster headaches. However I will get in touch with the [employer] company to make sure that they are providing her with the concentrator that she can use at nighttime for oxygen. She will call in to 3 weeks to give us a report on her response to therapy. In meantime she continues to use her respiratory therapy with good effect. She has been using the trazodone for sleep. Otherwise the patient is without any other complaints. 06/01/2022 the patient is here for a pulmonary follow-up visit. She has multiple complaints. First of all she did go for in-lab sleep study. Unfortunately with all 4 experience for her. She felt unsafe getting to the parking lot and then when she made it into the room she was very uncomfortable. She has multiple complaints. I reached out to administration in order for her to be able to speak to somebody regarding her complaints to try to make get a better experience. In the meantime the results were nondiagnostic. She was awake all night and she was not able to get proper sleep in order to assess the question of sleep apnea. She continues use the oxygen at nighttime. Although on the 2 L was causing her to get nauseous and headaches. She also started developing some unsteadiness on her feet and some tingling in the hands. Therefore she stopped decreased down to 1.5 L and she was still getting the same issues. She is not sure his the oxygen or another issue. At this point she is going to hold off on the oxygen until her symptoms are better and then she is going to restarted 1 L per minute. Hopefully she can tolerate the lower dose until we can get a sleep study. She is going to continue to need a repeat sleep study. Her Helvetia score still elevated 24. The patient needs to undergo a proper in-lab sleep study. I am hoping that if we can mitigate the issues that she had previously so we can redo her study. 09/16/2022 the patient is here for pulmonary follow-up visit. Overall she is doing fair. She does complaint of episodic fevers and arthralgias along with shortness of breath. She does have a diagnosis of arthritis and fibromyalgia. This are reasonable of to COVID to assess for autoimmune conditions specially since her symptoms may be all connected. In addition to that she has noticed lower extremity edema. This is not common for her. She has been wearing compression stockings. The patient continues to have daytime drowsiness. The patient is working with her primary care doctor to have the in-lab sleep study done elsewhere which she can have a better experience and also had better results. Her Helvetia score continues to be elevated at over 24. She continues to respond well to the oxygen at nighttime. She wants to travel little bit and I did to make a to [employer] in order to allow her to find out ways for her to have some portability when she travels. 12/23/2022 the patient is here for pulmonary follow-up visit. She has multiple complaints. Primarily due to her sinus issue. She has been getting some sinus pressure primarily in the right side. Also affecting her right ear feels that going down to her neck area. This is resulting in headaches and also dizziness. She does have a appointment with ENT coming up in the next few weeks. In the meantime she does have some retraction of the tympanic membrane on the right and a little fluid on the left. Patient also has evidence of postnasal drip. She also describes a component vasomotor rhinitis with worsening postnasal drip and nasal discharge prior to eating. this postnasal drip results in a cough. From a respiratory status appears to be doing well. She is using her oxygen at nighttime. 07/13/2023 the patient is here for sick visit. She developed COVID twice over May 2023. She also states that she had COVID back in May 2022. but, the patient has not been able to feel better after her recent COVID infections. She started developing worsening cough. Moderate severity. For the most part nonproductive although sometimes she does expectorate her mucus plug yellowish in color. Denies any fevers or chills. She feels some heaviness in her left side of the chest area. Denies any pleuritic chest discomfort. Denies any history of blood clots. She has noticed some lower extremity edema. Her pulse ox is reassuring. The patient does have some expiratory wheezing and a post exhalation cough. Therefore I did give her breathing treatment with Xopenex and ipratropium bromide. The patient did improve some now with audible wheezing. She is agreeable to take a small dose of prednisone. She can not tolerate high dose because of adverse effects. Will also treat her for postviral bacterial infection. The patient also will undergo blood work. Will check a D-dimer. If elevated she will need a CTA to rule out PE. I did review chest x-ray that she had a [facility] recently demonstrating no acute disease. If she continues to be symptomatic and her D-dimer is negative will consider CT scan of the chest noncontrast. Will see what the blood work comes out to be. If the patient has any worsening symptoms or if she has no better she will call the office for further evaluation. 09/24/2023 the patient is here for a pulmonary follow-up visit. The patient is still struggling after her COVID infection. She is followed closely by Infectious Disease. 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 She will continue working closely with Infectious Disease adjusting the dose. In the meantime the patient does have history sleep apnea. She does use oxygen at nighttime. She had a very limited sleep study in the past. Her Helvetia score is significantly elevated at 14 over 24. The patient needs to have a repeat in-lab sleep study at this time. Will requested at [facility] were hopefully she has a better experience. In addition to that she has been using the Asmanex. She has been having hard time expectorating. She was were wondering about a percussion vest although I explained to her that with her significant scoliosis and back pain in the fact that she does not have bronchiec tasis would be a good option for her. She does have a Acapella valve. She should continue with the Xopenex followed by the hypertonic saline and then using the Acapella valve for chest PT. she will do that for a few weeks. If the patient is no better then she will call me and I will add azithromycin to her regimen. Will try to minimize medications to her patient regimen because of her adverse effects. If the patient is still not feeling better we can consider bronchoscopy for diagnostic and both therapeutic intervention. I did review her CT scan with her. The patient does have some significant scoliosis and some areas of atelectasis. 11/11/2023 the patient is here for a pulmonary follow-up visit. She is having hard time with breathing for the last couple weeks. May be related to the heat and humidity. She has been using the Asmanex once a day. She has been having hard time getting the Xopenex HFA. She does have the nebulizer solution. She does respond well to the hypertonic saline as well. Will go ahead and optimize respiratory therapy. I will send Xopenex elsewhere. In addition to that she can always use the Xopenex via nebulizer in the meantime she should be using at least twice a day. We did talk about adding her a longer acting albuterol which may work well such as salmeterol or vilanterol where she did have the beta fact not significant cardiac irritability. Still the will try to manage with medications right now to avoid any additional adverse effects. Therefore, she should be using Xopenex twice a day and she can also increase the Asmanex to twice a day. She daytime drowsiness. Her Helvetia score is elevated 14/24. She was scheduled to have an in-lab sleep study but then she declined to have it at [facility] because of the sleeping accommodations in her significant back issues. Therefore, she is willing to try home sleep study. 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 Lower extremity edema Arthralgia Fever Nocturnal hypoxia Chronic restrictive lung disease Severe scoliosis Bronchitis ALTAF (obstructive sleep apnea) Dyspnea Social History (Updated 07/13/23 @ 15:55 by Anum Watson LPN) Patient Tobacco Use Status: Never used Tobacco Review of Systems Const Reports daytime sleepiness, Reports fatigue, Reports headache(s) and Reports s noring ENT Denies change in voice, Reports dizziness, Reports headache(s), Denies lip swelling, Denies mouth pain, Reports nasal congestion, Reports nasal discharge and Denies tongue swelling Card Denies chest pain, Reports dyspnea and Reports dyspnea on exertion Resp Denies chest congestion, Reports cough, Reports dyspnea, Reports dyspnea on exertion, Reports snoring and Reports wheezing GI Denies abdominal pain and Reports nausea Musc Reports back pain, Reports myalgias, Reports deformity, Reports arthralgias and Reports joint swelling Neuro Denies Neuro-related abnormal movements, Reports dizziness and Reports headache(s) Psych Denies no additional complaints Endo Reports fatigue Edil/Lymph Denies easy bleeding and Denies lymphadenopathy Aller/Immun Denies lip swelling, Denies tongue swelling and Reports wheezing Physical Exam Vital Signs: Last Vital Signs Pulse 68 11/11/23 11:05 BP 118/60 11/11/23 11:05 Pulse Ox 97 11/11/23 11:05 Oxygen Delivery Method Room Air 11/11/23 11:05 BMI result Body Mass Index 23.8 Const General: alert HEENT Ears: TM abnormal retracted on the right Throat: Yes postnasal drainage and Yes cobblestoning Neck Neck: Yes normal visual inspection, Yes full ROM and Yes no lymphadenopathy Chest Chest palpation & inspection: normal inspection of the chest Resp Effort & Inspection: normal respiratory effort Auscultation: no wheezes and diminished lung sounds Cardio Rate: regular rate Rhythm: regular rhythm Heart sounds: S1 normal heart sound present and S2 normal heart sound present GI Palpation (GI): Soft to palpation and nontender Auscultation: normal bowel sounds Skin General skin exam: rashes and/or lesions noted Extrem General: No clubbing, No cyanosis and Yes edema Assessment & Plan Assessment & Plan (1) Reactive airway disease with acute exacerbation: Code(s): J45.901 - Unspecified asthma with (acute) exacerbation Category: Medical Qualifiers: Asthma persistence: persistent Asthma severity: moderate Qualified Code(s): J45.41 - Moderate persistent asthma with (acute) exacerbation (2) 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: Code(s): U09.9 - Post COVID-19 condition, unspecified Category: Medical (3) Chronic restrictive lung disease: Code(s): J98.4 - Other disorders of lung Category: Medical (4) Dyspnea: Code(s): R06.00 - Dyspnea, unspecified Category: Medical Qualifiers: Dyspnea type: dyspnea on exertion Qualified Code(s): R06.00 - Dyspnea, unspecified (5) Severe scoliosis: Code(s): M41.9 - Scoliosis, unspecified Category: Medical (6) Nocturnal hypoxia: Comment: due to her restrictive lung disease Code(s): G47.34 - Idiopathic sleep related nonobstructive alveolar hypoventilation Category: Medical (7) ALTAF (obstructive sleep apnea): Comment: High suspicion for ALTAF, need to repeat her sleep study Code(s): G47.33 - Obstructive sleep apnea (adult) (pediatric) Category: Medical Plan CPT with nebulized therapy with xopenex and hypertonic saline Xopenex BID and as needed continue Asmanex Acapella valve for CPT Oxygen 2 L/min while sleeping Ipratropium nasal spray as needed Home sleep study F/U 3-4 months Orders: Orders RT home sleep study Today G47.33 - Obstructive sleep apnea (adult) (pediatric) Medications: Refilled Xopenex HFA 45 mcg/actuation (levalbuterol tartrate) 2 puffs inhalation Q6H 30 days PRN 15 grams 11RF shortness of breath or wheezing NS J45.909 - Unspecified asthma, uncomplicated Xopenex HFA 45 mcg/actuation (levalbuterol tartrate) 2 puffs inhalation Q6H 30 days PRN 15 grams 11RF shortness of breath or wheezing NS J45.909 - Unspecified asthma, uncomplicated Xopenex HFA 45 mcg/actuation (levalbuterol tartrate) 2 puffs inhalation Q6H PRN 15 grams 11RF shortness of breath or wheezing 30 days NS J45.909 - Unspecified asthma, uncomplicated sodium chloride 3% 4 mL inhalation BID 720 mL 3RF 90 days Coding Level of Care Code Est Pt Level 4 (08901) Diagnoses Moderate persistent reactive airway disease with acute exacerbation J45.41 Asthma persistence: persistent Asthma severity: moderate [id number] syndrome U09.9 Chronic restrictive lung disease J98.4 Dyspnea on exertion R06.00 Dyspnea type: dyspnea on exertion Severe scoliosis M41.9 Nocturnal hypoxia G47.34 ALTAF (obstructive sleep apnea) G47.33 Time Spent (min) 17
[2023-11-11 11:05] VITALS: BP 118/60; PULSE 68; O2SAT 97; BMI 23.8
== END 2023-11-11 11:31 | disposition home or self-care (01) ==
PROVIDERS: PCP Family Medicine; Visit Provider Hospitalist
DX: J45.41 Moderate persistent asthma with (acute) exacerbation (principal); U09.9 Post COVID-19 condition, unspecified; J98.4 Other disorders of lung; R06.00 Dyspnea, unspecified; M41.9 Scoliosis, unspecified; G47.34 Idiopathic sleep related nonobstructive alveolar hypoventilation; G47.33 Obstructive sleep apnea (adult) (pediatric)
CPT/HCPCS: 99214

== ENCOUNTER → 2023-11-11 10:55 | Outpatient (BNVA) | payer MEDICARE, OTHER, SELFPAY | PROVIDERS: PCP Family Medicine; Visit Provider Hospitalist | DX: U09.9 Post COVID-19 condition, unspecified (principal); J45.41 Moderate persistent asthma with (acute) exacerbation; J98.4 Other disorders of lung; G47.34 Idiopathic sleep related nonobstructive alveolar hypoventilation; G47.33 Obstructive sleep apnea (adult) (pediatric); R06.00 Dyspnea, unspecified; M41.9 Scoliosis, unspecified | CPT/HCPCS: 99212 ==

== ENCOUNTER → 2023-12-30 14:56 | Outpatient (REF) | payer MEDICARE, OTHER, SELFPAY | LOC: HO.SL 14:56 | PROVIDERS: PCP Family Medicine; Visit Provider Hospitalist | DX: G47.33 Obstructive sleep apnea (adult) (pediatric) (principal) | CPT/HCPCS: 95806 ==

== ENCOUNTER → 2023-12-30 15:09 | Outpatient (BNV) | payer MEDICARE, OTHER, SELFPAY | PROVIDERS: PCP Family Medicine; Visit Provider Internal Medicine | DX: R06.83 Snoring (principal) | CPT/HCPCS: 95806 ==

== ENCOUNTER 2024-02-11 10:57 | Outpatient (AMB) | payer MEDICARE, OTHER, SELFPAY ==
--- NOTE | 2024-02-11 11:04 | A.OFFVIS_ITS ---
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 With significant back pain and worsening shortness of breath. The patient also has a history of significant allergies and asthma. She has been complaining worsening shortness of breath moderate severity. Sometimes she is hard for her to take a deep breath in. She feels is mainly due to the worsening scoliosis. She also complains of significant pain. She has chronic pain due to her significant scoliosis and surgical interventions. She is currently working closely with orthopedic surgery. She has had chest x-rays done in the past which were personally by me demonstrating the significant restriction due to her severe scoliosis. The patient also has significant he had daytime drowsiness. Her EPWORTH score is 10/24. She needs to have a sleep study at this time. 11/25/2020 patient is here for sick visit. The patient has been developing worsening cough shortness of breath for last several days. She denies any sick contacts. The patient not been vaccinated for COVID-19 as of yet. Based on worsening symptoms she should be tested. The meantime she is having hard expectorating. We did try to give a treatment with saline and Xopenex in the office see it would help expectorate better. She did feel some relief. Therefore will try hypertonic saline that she use home. Will also request a flutter valve that she can use after her nebulized treatment for her chest physical therapy. The patient significant scoliosis. We did repeat her pulmonary function studies recently and they did demonstrate a restrictive disease in this case related to significant scoliosis. We did compare these pulmonary function studies to her previous ones several years back they did demonstrate significant worsening of the restriction and now also with evidence diffusion impairment due to her limited expansion her lungs. Based on her pulmonary function studies, her worsening respiratory symptoms are largely due to her severe thoracic scoliosis with her failed Silva Daniel surgery. in order to improve her respiratory capacity the patient has optimized with nebulized therapy and chest physical therapy and this has been partially helpful. she does have an older lumbar brace which she does not provide her with enough support. More recently the patient did try the [employer] Peak Scoliosis Bracing system which significantly improved her respiratory symptoms. I do believe that the combination of the new TLSO brace and the respiratory therapy that the patient would have significant improvement in her pulmonary capacity and quality of life. We are still waiting for the results of her sleep study to also further address that question. 12/16/2020 the patient is here for a pulmonary follow-up visit. Since we last spoke the patient did get her brace approved and she has been very happy with the fact that has been helping. In the meantime she continues to have daytime drowsiness and significant snoring. Her Newark score is indeed elevated 12/24. She did undergo a home sleep study and her study demonstrated significant snoring. However, her AHI was approximately 1.6 events per hour mainly with hypopneas. I did explain to the patient that at this point she does not qualify for CPAP. If however the patient continues to be symptomatic then we can consider an inpatient or in-lab study which she will provide more accurate information. In the meantime will try to work on her sleep. She does have significant insomnia. She has tried multiple medications in the past. She is able to fall asleep but a lot of times a staying asleep. She is willing to try trazodone at this time. In the meantime the patient was able to get her nebulizer from her [employer]. However, she has not gotten her Acapella valve. We did make a phone call to assist her to facilitate her chest physical therapy which will be helpful improving her respiratory status. 11/19/2021 the patient is here for a pulmonary follow-up visit. Since we last spoke she is complaining of worsening headaches. She also has daytime drowsiness with an Newark score of 12/24. The patient did undergo an overnight oximetry demonstrating hypoxia, spending more than 6 minutes below 88%. The patient has underlying restrictive lung disease due to her scoliosis. This is likely contributing to her degree of hypoxia. The patient is also symptomatic. Will go ahead and start her on oxygen at nighttime. She already has oxygen that she was prescribed at some point because of her cluster headaches. However I will get in touch with the [employer] company to make sure that they are providing her with the concentrator that she can use at nighttime for oxygen. She will call in to 3 weeks to give us a report on her response to therapy. In meantime she continues to use her respiratory therapy with good effect. She has been using the trazodone for sleep. Otherwise the patient is without any other complaints. 06/01/2022 the patient is here for a pulmonary follow-up visit. She has multiple complaints. First of all she did go for in-lab sleep study. Unfortunately with all 4 experience for her. She felt unsafe getting to the parking lot and then when she made it into the room she was very uncomfortable. She has multiple complaints. I reached out to administration in order for her to be able to speak to somebody regarding her complaints to try to make get a better experience. In the meantime the results were nondiagnostic. She was awake all night and she was not able to get proper sleep in order to assess the question of sleep apnea. She continues use the oxygen at nighttime. Although on the 2 L was causing her to get nauseous and headaches. She also started developing some unsteadiness on her feet and some tingling in the hands. Therefore she stopped decreased down to 1.5 L and she was still getting the same issues. She is not sure his the oxygen or another issue. At this point she is going to hold off on the oxygen until her symptoms are better and then she is going to restarted 1 L per minute. Hopefully she can tolerate the lower dose until we can get a sleep study. She is going to continue to need a repeat sleep study. Her Newark score still elevated 24. The patient needs to undergo a proper in-lab sleep study. I am hoping that if we can mitigate the issues that she had previously so we can redo her study. 09/16/2022 the patient is here for pulmonary follow-up visit. Overall she is doing fair. She does complaint of episodic fevers and arthralgias along with shortness of breath. She does have a diagnosis of arthritis and fibromyalgia. This are reasonable of to COVID to assess for autoimmune conditions specially since her symptoms may be all connected. In addition to that she has noticed lower extremity edema. This is not common for her. She has been wearing compression stockings. The patient continues to have daytime drowsiness. The patient is working with her primary care doctor to have the in-lab sleep study done elsewhere which she can have a better experience and also had better results. Her Newark score continues to be elevated at over 24. She continues to respond well to the oxygen at nighttime. She wants to travel little bit and I did to make a to [email or web address] in order to allow her to find out ways for her to have some portability when she travels. 12/23/2022 the patient is here for pulmonary follow-up visit. She has multiple complaints. Primarily due to her sinus issue. She has been getting some sinus pressure primarily in the right side. Also affecting her right ear feels that going down to her neck area. This is resulting in headaches and also dizziness. She does have a appointment with ENT coming up in the next few weeks. In the meantime she does have some retraction of the tympanic membrane on the right and a little fluid on the left. Patient also has evidence of postnasal drip. She also describes a component vasomotor rhinitis with worsening postnasal drip and nasal discharge prior to eating. this postnasal drip results in a cough. From a respiratory status appears to be doing well. She is using her oxygen at nighttime. 07/13/2023 the patient is here for sick visit. She developed COVID twice over May 2023. She also states that she had COVID back in May 2022. but, the patient has not been able to feel better after her recent COVID infections. She started developing worsening cough. Moderate severity. For the most part nonproductive although sometimes she does expectorate her mucus plug yellowish in color. Denies any fevers or chills. She feels some heaviness in her left side of the chest area. Denies any pleuritic chest discomfort. Denies any history of blood clots. She has noticed some lower extremity edema. Her pulse ox is reassuring. The patient does have some expiratory wheezing and a post exhalation cough. Therefore I did give her breathing treatment with Xopenex and ipratropium bromide. The patient did improve some now with audible wheezing. She is agreeable to take a small dose of prednisone. She can not tolerate high dose because of adverse effects. Will also treat her for postviral bacterial infection. The patient also will undergo blood work. Will check a D-dimer. If elevated she will need a CTA to rule out PE. I did review chest x-ray that she had a [facility] recently demonstrating no acute disease. If she continues to be symptomatic and her D-dimer is negative will consider CT scan of the chest noncontrast. Will see what the blood work comes out to be. If the patient has any worsening symptoms or if she has no better she will call the office for further evaluation. 09/24/2023 the patient is here for a pulmonary follow-up visit. The patient is still struggling after her COVID infection. She is followed closely by Infectious Disease. 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 She will continue working closely with Infectious Disease adjusting the dose. In the meantime the patient does have history sleep apnea. She does use oxygen at nighttime. She had a very limited sleep study in the past. Her Newark score is significantly elevated at 14 over 24. The patient needs to have a repeat in-lab sleep study at this time. Will requested at [facility] were hopefully she has a better experience. In addition to that she has been using the Asmanex. She has been having hard time expectorating. She was were wondering about a percussion vest although I explained to her that with her significant scoliosis and back pain in the fact that she does not have bronchiectasis would be a good option for her. She does have a Acapella valve. She should continue with the Xopenex followed by the hypertonic saline and then using the Acapella valve for chest PT. she will do that for a few weeks. If the patient is no better then she will call me and I will add azithromycin to her regimen. Will try to minimize medications to her patient regimen because of her adverse effects. If the patient is still not feeling better we can consider bronchoscopy for diagnostic and both therapeutic intervention. I did review her CT scan with her. The patient does have some significant scoliosis and some areas of atelectasis. 11/11/2023 the patient is here for a pulmonary follow-up visit. She is having hard time with breathing for the last couple weeks. May be related to the heat and humidity. She has been using the Asmanex once a day. She has been having hard time getting the Xopenex HFA. She does have the nebulizer solution. She does respond well to the hypertonic saline as well. Will go ahead and optimize respiratory therapy. I will send Xopenex elsewhere. In addition to that she can always use the Xopenex via nebulizer in the meantime she should be using at least twice a day. We did talk about adding her a longer acting albuterol which may work well such as salmeterol or vilanterol where she did have the beta fact not significant cardiac irritability. Still the will try to manage with medications right now to avoid any additional adverse effects. Therefore, she should be using Xopenex twice a day and she can also increase the Asmanex to twice a day. She daytime drowsiness. Her Newark score is elevated 14/24. She was scheduled to have an in-lab sleep study but then she declined to have it at [facility] because of the sleeping accommodations in her significant back issues. Therefore, she is willing to try home sleep study. Will go ahead and order it at this time 02/11/2024 the patient is here for a pulmonary follow-up visit. Overall the patient has been doing okay. She still feels that difficulty breathing primarily on the left lung. She has a significant scoliosis. She does have her CPT with the flutter valve and she also has a respiratory medications that are not completely helpful for her condition. She also complains of lower extremity edema. She did follow-up with the vascular surgeon was found to have some degree of venous insufficiency. She does wear the compression stockings during the daytime. However, even in the morning her legs are swollen. She did have an echo back in 2022 demonstrating normal pressures. Does not appear that she has a cardiac condition although we can always repeat her echocardiogram or consider a stress echo to see if she develops any pulmonary hypertension with activity. The patient will try Lasix x3 days she has done it before and that did help her some. She does maintain a low-sodium diet which is helpful. She did have a home sleep study. We did review together. She continues to have elevated Newark score of 12/24. Her sleep study was reassuring. Although was a home sleep study appeared to be adequate. Her AHI was 0.4 and she had a saturation of 88%. She still has oxygen at home and she can use it specially when she is having migraines. She also had significant amount of snoring. We did talk about elastic mandibular device that she can try. We also talked about her pulmonary nodules noted on her CT scan from 08/21/2023. She will need a repeat CT scan in 08/20/2024. The patient will follow-up then. If she has any issues prior to that she will call for an earlier assessment. 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 Lower extremity edema Arthralgia Fever Nocturnal hypoxia Chronic restrictive lung disease Severe scoliosis Bronchitis ALTAF (obstructive sleep apnea) Dyspnea Social History (Updated 07/13/23 @ 15:55 by Anum Watson LPN) Patient Tobacco Use Status: Never used Tobacco Review of Systems Const Reports daytime sleepiness, Reports fatigue, Reports headache(s) and Reports snoring ENT Denies change in voice, Reports dizziness, Reports headache(s), Denies lip swelling, Denies mouth pain, Reports nasal congestion, Reports nasal discharge and Denies tongue swelling Card Denies chest pain, Reports dyspnea and Reports dyspnea on exertion Resp Denies chest congestion, Reports cough, Reports dyspnea, Reports dyspnea on exertion, Reports snoring and Reports wheezing GI Denies abdominal pain and Reports nausea Musc Reports back pain, Reports myalgias, Reports deformity, Reports arthralgias and Reports joint swelling Neuro Denies Neuro-related abnormal movements, Reports dizziness and Reports headache(s) Psych Denies no additional complaints Endo Reports fatigue Edil/Lymph Denies easy bleeding and Denies lymphadenopathy Aller/Immun Denies lip swelling, Denies tongue swelling and Reports wheezing Physical Exam Vital Signs: Last Vital Signs Pulse 70 02/11/24 11:05 BP 128/74 02/11/24 11:05 Pulse Ox 98 02/11/24 11:05 Oxygen Delivery Method Room Air 02/11/24 11:05 BMI result Body Mass Index 24.2 Const General: alert HEENT Ears: TM abnormal retracted on the right Throat: Yes postnasal drainage and Yes cobblestoning Neck Neck: Yes normal visual inspection, Yes full ROM and Yes no lymphadenopathy Chest Chest palpation & inspection: normal inspection of the chest Resp Effort & Inspection: normal respiratory effort Auscultation: no wheezes and diminished lung sounds Cardio Rate: regular rate Rhythm: regular rhythm Heart sounds: S1 normal heart sound present and S2 normal heart sound present GI Palpation (GI): Soft to palpation and nontender Auscultation: normal bowel sounds Skin General skin exam: rashes and/or lesions noted Extrem General: No clubbing, No cyanosis and Yes edema Assessment & Plan Assessment & Plan (1) Reactive airway disease with acute exacerbation: Code(s): J45.901 - Unspecified asthma with (acute) exacerbation Category: Medical Qualifiers: Asthma persistence: persistent Asthma severity: moderate Qualified Code(s): J45.41 - Moderate persistent asthma with (acute) exacerbation (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(s): U09.9 - Post COVID-19 condition, unspecified Category: Medical (3) Chronic restrictive lung disease: Code(s): J98.4 - Other disorders of lung Category: Medical (4) Dyspnea: Code(s): R06.00 - Dyspnea, unspecified Category: Medical Qualifiers: Dyspnea type: dyspnea on exertion Qualified Code(s): R06.00 - Dyspnea, unspecified (5) Severe scoliosis: Code(s): M41.9 - Scoliosis, unspecified Category: Medical (6) Nocturnal hypoxia: Comment: due to her restrictive lung disease Code(s): G47.34 - Idiopathic sleep related nonobstructive alveolar hypoventilation Category: Medical (7) Lower extremity edema: Comment: ?lymphedema, normal ECHO Code(s): R60.0 - Localized edema Category: Medical Plan CPT with nebulized therapy with xopenex and hypertonic saline Xopenex BID and as needed continue Asmanex Acapella valve for CPT Oxygen 2 L/min while sleeping consider stree ECHO to assesss exercised induced pulmonary HTN Trial of lasix x 3 days Ipratropium nasal spray as needed F/U 3-4 months Medications: New furosemide (Lasix) 20 mg PO DAILY 3 tabs 0RF 3 days Coding Level of Care Code Est Pt Level 4 (92614) Complex EM visit Add On G2211 Diagnoses Moderate persistent reactive airway disease with acute exacerbation J45.41 Asthma persistence: persistent Asthma severity: moderate 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
[2024-02-11 11:05] VITALS: BP 128/74; PULSE 70; O2SAT 98; BMI 24.2
== END 2024-02-11 11:37 | disposition home or self-care (01) ==
PROVIDERS: PCP Family Medicine; Visit Provider Hospitalist
DX: J45.41 Moderate persistent asthma with (acute) exacerbation (principal); U09.9 Post COVID-19 condition, unspecified; J98.4 Other disorders of lung; R06.00 Dyspnea, unspecified; M41.9 Scoliosis, unspecified; G47.34 Idiopathic sleep related nonobstructive alveolar hypoventilation; R60.0 Localized edema
CPT/HCPCS: 99214; G2211

== ENCOUNTER → 2024-02-11 10:57 | Outpatient (BNVA) | payer MEDICARE, OTHER, SELFPAY | PROVIDERS: PCP Family Medicine; Visit Provider Hospitalist | DX: J45.41 Moderate persistent asthma with (acute) exacerbation (principal); U09.9 Post COVID-19 condition, unspecified; R06.00 Dyspnea, unspecified; J98.4 Other disorders of lung; M41.9 Scoliosis, unspecified; G47.34 Idiopathic sleep related nonobstructive alveolar hypoventilation; R60.0 Localized edema | CPT/HCPCS: 99212 ==

== ENCOUNTER 2024-09-11 10:49 | Outpatient (AMB) | payer MEDICARE, OTHER, SELFPAY ==
[2024-09-11 11:07] VITALS: BP 116/60; PULSE 78; O2SAT 98; BMI 24.7
--- NOTE | 2024-09-11 11:07 | A.OFFVIS_ITS ---
Vital Signs 09/11/24 11:07 Height 5 ft 7 in Weight 157 lb 10.088 oz BMI 24.7 BP 116/60 Blood Pressure Location Lt brachial Position Sitting Pulse 78 Pulse Source Pulse Oximeter Pulse Oximetry (%) 98 Oxygen Delivery Method Room Air Intake Visit Reasons: Post Covid [employer] Required: No Accompanied by: Self / Same As Patient Allergies doxycycline [DOXYCYCLINE] Allergy (Severe, Verified 09/11/24 11:19) RASH methylprednisolone [From DEPO-MEDROL] Allergy (Severe, Verified 09/11/24 11:19) ANXIETY triamcinolone [From KENALOG] Allergy (Severe, Verified 09/11/24 11:19) ANXIETY HPI Comments Details: Patient is a 69-year-old woman with a known history of significant scoliosis status post daniel placement. With significant back pain and worsening shortness of breath. The patient also has a history of significant allergies and asthma. She has been complaining worsening shortness of breath moderate severity. Sometimes she is hard for her to take a deep breath in. She feels is mainly due to the worsening scoliosis. She also complains of significant pain. She has chronic pain due to her significant scoliosis and surgical interventions. She is currently working closely with orthopedic surgery. She has had chest x-rays done in the past which were personally by me demonstrating the significant restriction due to her severe scoliosis. The patient also has significant he had daytime drowsiness. Her EPWORTH score is 10/24. She needs to have a sleep study at this time. 11/25/2020 patient is here for sick visit. The patient has been developing worsening cough shortness of breath for last several days. She denies any sick contacts. The patient not been vaccinated for COVID-19 as of yet. Based on worsening symptoms she should be tested. The meantime she is having hard expectorating. We did try to give a treatment with saline and Xopenex in the office see it would help expectorate better. She did feel some relief. Therefore will try hypertonic saline that she use home. Will also request a flutter valve that she can use after her nebulized treatment for her chest physical therapy. The patient significant scoliosis. We did repeat her pulmonary function studies recently and they did demonstrate a restrictive disease in this case related to significant scoliosis. We did compare these pulmonary function studies to her previous ones several years back they did demonstrate significant worsening of the restriction and now also with evidence diffusion impairment due to her limited expansion her lungs. Based on her pulmonary function studies, her worsening respiratory symptoms are largely due to her severe thoracic scoliosis with her failed Silva Daniel surgery. in order to improve her respiratory capacity the patient has optimized with nebulized therapy and chest physical therapy and this has been partially helpful. she does have an older lumbar brace which she does not provide her with enough support. More recently the patient did try the [employer] Peak Scoliosis Bracing system which significantly improved her respiratory symptoms. I do believe that the combination of the new TLSO brace and the respiratory therapy that the patient would have significant improvement in her pulmonary capacity and quality of life. We are still waiting for the results of her sleep study to also further address that question. 12/16/2020 the patient is here for a pulmonary follow-up visit. Since we last spoke the patient did get her brace approved and she has been very happy with the fact that has been helping. In the meantime she continues to have daytime drowsiness and significant snoring. Her Richmond score is indeed elevated 12/24. She did undergo a home sleep study and her study demonstrated significant snoring. However, her AHI was approximately 1.6 events per hour mainly with hypopneas. I did explain to the patient that at this point she does not qualify for CPAP. If however the patient continues to be symptomatic then we can consider an inpatient or in-lab study which she will provide more accurate information. In the meantime will try to work on her sleep. She does have significant insomnia. She has tried multiple medications in the past. She is able to fall asleep but a lot of times a staying asleep. She is willing to try trazodone at this time. In the meantime the patient was able to get her nebulizer from her [employer]. However, she has not gotten her Acapella valve. We did make a phone call to assist her to facilitate her chest physical therapy which will be helpful improving her respiratory status. 11/19/2021 the patient is here for a pulmonary follow-up visit. Since we last spoke she is complaining of worsening headaches. She also has daytime drowsiness with an Richmond score of 12/24. The patient did undergo an overnight oximetry demonstrating hypoxia, spending more than 6 minutes below 88%. The patient has underlying restrictive lung disease due to her scoliosis. This is likely contributing to her degree of hypoxia. The patient is also symptomatic. Will go ahead and start her on oxygen at nighttime. She already has oxygen that she was prescribed at some point because of her cluster headaches. However I will get in touch with the [employer] company to make sure that they are providing her with the concentrator that she can use at nighttime for oxygen. She will call in to 3 weeks to give us a report on her response to therapy. In meantime she c ontinues to use her respiratory therapy with good effect. She has been using the trazodone for sleep. Otherwise the patient is without any other complaints. 06/01/2022 the patient is here for a pulmonary follow-up visit. She has multiple complaints. First of all she did go for in-lab sleep study. Unfortunately with all 4 experience for her. She felt unsafe getting to the parking lot and then when she made it into the room she was very uncomfortable. She has multiple complaints. I reached out to administration in order for her to be able to speak to somebody regarding her complaints to try to make get a better experience. In the meantime the results were nondiagnostic. She was awake all night and she was not able to get proper sleep in order to assess the question of sleep apnea. She continues use the oxygen at nighttime. Although on the 2 L was causing her to get nauseous and headaches. She also started developing some unsteadiness on her feet and some tingling in the hands. Therefore she stopped decreased down to 1.5 L and she was still getting the same issues. She is not sure his the oxygen or another issue. At this point she is going to hold off on the oxygen until her symptoms are better and then she is going to restarted 1 L per minute. Hopefully she can tolerate the lower dose until we can get a sleep study. She is going to continue to need a repeat sleep study. Her Richmond score still elevated 12/24. The patient needs to undergo a proper in-lab sleep study. I am hoping that if we can mitigate the issues that she had previously so we can redo her study. 09/16/2022 the patient is here for pulmonary follow-up visit. Overall she is doing fair. She does complaint of episodic fevers and arthralgias along with shortness of breath. She does have a diagnosis of arthritis and fibromyalgia. This are reasonable of to COVID to assess for autoimmune conditions specially since her symptoms may be all connected. In addition to that she has noticed l ower extremity edema. This is not common for her. She has been wearing compression stockings. The patient continues to have daytime drowsiness. The patient is working with her primary care doctor to have the in-lab sleep study done elsewhere which she can have a better experience and also had better results. Her Richmond score continues to be elevated at over 24. She continues to respond well to the oxygen at nighttime. She wants to travel little bit and I did to make a to [employer] in order to allow her to find out ways for her to have some portability when she travels. 12/23/2022 the patient is here for pulmonary follow-up visit. She has multiple complaints. Primarily due to her sinus issue. She has been getting some sinus pressure primarily in the right side. Also affecting her right ear feels that going down to her neck area. This is resulting in headaches and also dizziness. She does have a appointment with ENT coming up in the next few weeks. In the meantime she does have some retraction of the tympanic membrane on the right and a little fluid on the left. Patient also has evidence of postnasal drip. She also describes a component vasomotor rhinitis with worsening postnasal drip and nasal discharge prior to eating. this postnasal drip results in a cough. From a respiratory status appears to be doing well. She is using her oxygen at nighttime. 07/13/2023 the patient is here for sick visit. She developed COVID twice over May 2023. She also states that she had COVID back in May 2022. but, the patient has not been able to feel better after her recent COVID infections. She started developing worsening cough. Moderate severity. For the most part nonproductive although sometimes she does expectorate her mucus plug yellowish in color. Denies any fevers or chills. She feels some heaviness in her left side of the chest area. Denies any pleuritic chest discomfort. Denies any history of blood clots. She has noticed some lower extremity edema. Her pulse ox is reassuring. The patient does have some expiratory wheezing and a post exhalation cough. Therefore I did give her breathing treatment with Xopenex and ipratropium bromide. The patient did improve some now with audible wheezing. She is agreeable to take a small dose of prednisone. She can not tolerate high dose because of adverse effects. Will also treat her for postviral bacterial infection. The patient also will undergo blood work. Will check a D-dimer. If elevated she will need a CTA to rule out PE. I did review chest x-ray that she had a [facility] recently demonstrating no acute disease. If she continues to be symptomatic and her D-dimer is negative will consider CT scan of the chest noncontrast. Will see what the blood work comes out to be. If the patient has any worsening symptoms or if she has no better she will call the office for further evaluation. 09/24/2023 the patient is here for a pulmonary follow-up visit. The patient is still struggling after her COVID infection. She is followed closely by Infectious Disease. 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 She will continue working closely with Infectious Disease adjusting the dose. In the meantime the patient does have history sleep apnea. She does use oxygen at nighttime. She had a very limited sleep study in the past. Her Richmond score is significantly elevated at 14 over 24. The patient needs to have a repeat in-lab sleep study at this time. Will requested at [facility] were hopefully she has a better experience. In addition to that she has been using the Asmanex. She has been having hard time expectorating. She was were wondering about a percussion vest although I explained to her that with her significant scoliosis and back pain in the fact that she does not have bronchiectasis would be a good option for her. She does have a Acapella valve. She should continue with the Xopenex followed by the hypertonic saline and then using the Acapella valve for chest PT. she will do that for a few weeks. If the patient is no better then she will call me and I will add azithromycin to her regimen. Will try to minimize medications to her patient regimen because of her adverse effects. If the patient is still not feeling better we can consider bronchoscopy for diagnostic and both therapeutic intervention. I did review her CT scan with her. The patient does have some significant scoliosis and some areas of atelectasis. 11/11/2023 the patient is here for a pulmonary follow-up visit. She is having hard time with breathing for the last couple weeks. May be related to the heat and humidity. She has been using the Asmanex once a day. She has been having hard time getting the Xopenex HFA. She does have the nebulizer solution. She does respond well to the hypertonic saline as well. Will go ahead and optimize respiratory therapy. I will send Xopenex elsewhere. In addition to that she can always use the Xopenex via nebulizer in the meantime she should be using at least twice a day. We did talk about adding her a longer acting albuterol which may work well such as salmeterol or vilanterol where she did have the beta fact not significant cardiac irritability. Still the will try to manage with medications right now to avoid any additional adverse effects. Therefore, she should be using Xopenex twice a day and she can also increase the Asmanex to twice a day. She daytime drowsiness. Her Richmond score is elevated 14/24. She was scheduled to have an in-lab sleep study but then she declined to have it at [facility] because of the sleeping accommodations in her significant back issues. Therefore, she is willing to try home sleep study. Will go ahead and order it at this time 02/11/2024 the patient is here for a pulmonary follow-up visit. Overall the patient has been doing okay. She still feels that difficulty breathing primarily on the left lung. She has a significant scoliosis. She does have her CPT with the flutter valve and she also has a respiratory medications that are not completely helpful for her condition. She also complains of lower extremity edema. She did follow-up with the vascular surgeon was found to have some degree of venous insufficiency. She does wear the compression stockings during the daytime. However, even in the morning her legs are swollen. She did have an echo back in 2022 demonstrating normal pressures. Does not appear that she has a cardiac condition although we can always repeat her echocardiogram or consider a stress echo to see if she develops any pulmonary hypertension with activity. The patient will try Lasix x3 days she has done it before and that did help her some. She does maintain a low-sodium diet which is helpful. She did have a home sleep study. We did review together. She continues to have elevated Richmond score of 12/24. Her sleep study was reassuring. Although was a home sleep study appeared to be adequate. Her AHI was 0.4 and she had a saturation of 88%. She still has oxygen at home and she can use it specially when she is having migraines. She also had significant amount of snoring. We did talk about elastic mandibular device that she can try. We also talked about her pulmonary nodules noted on her CT scan from 08/21/2023. She will need a repeat CT scan in 08/20/2024. The patient will follow-up then. If she has any issues prior to that she will call for an earlier assessment. 09/11/2024 the patient is here for pulmonary follow-up visit. Overall she is doing okay still complaining of cough. Moderate severity. Sometimes is more an upper airway cough syndrome sometimes she feels that she is getting some chest pressure on the left side because she has a hard time clearing her secretions. That is intermittent. She has had a full cardiac workup which was reassuring per the patient. The patient has not had any continue sometime though. She has a hard time tolerating a lot of medications because they may interact or cause other adverse effects. But for now will going to go ahead and try to optimize her current medications and just maximize the use of what she is taking to see if we can allow some relief of her symptoms. Her last CT scan was back last year August 2023 with multiple pulmonary nodules in addition to that the patient did have a question endobronchial density are blockage in the left lower lobe airway. This could account for mucus plugging or could be some foreign body. Will go ahead and request a repeat CAT scan to assess address the pulmonary nod ules and to address the endobronchial density. We did talk about bronchoscopy as a very good option. She is going to think about depending on the CAT scan report. Therefore she is going to start her nebulized treatments and continue with CPT. Will add hypertonic saline in order for mucus clearance specially with her significant restrictive lung disease from her severe scoliosis. Hopefully that is enough. In addition to that she was going to increase her antihistamine therapy for cough and also continue taking her Tessalon Perles for cough. Follow-up in 3 4 months. If she has any issues prior to that she will call for an earlier assessment. 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 Lower extremity edema Arthralgia Fever Nocturnal hypoxia Chronic restrictive lung disease Severe scoliosis Bronchitis ALTAF (obstructive sleep apnea) Dyspnea Social History Patient Tobacco Use Status: Never used Tobacco Review of Systems Const Denies chills, Denies fatigue, Denies fever(s), Denies weight gain and Denies weight loss ENT Denies dizziness, Denies lip swelling and Denies tongue swelling Card Denies chest pain, Denies leg edema, Denies lightheadedness, Denies palpitations, Denies dyspnea on exertion, Denies orthopnea and Denies other Resp Reports chest congestion, Reports cough, Denies dyspnea on exertion and Reports wheezing GI Denies hematochezia and Denies change in stool character Musc Denies abnormal gait, Denies muscle weakness, Denies numbness, Denies radiating pain into limb and Denies tingling Skin/Breast Denies rash Neuro Denies abnormal gait, Denies dizziness, Denies numbness and Denies tingling Psych Denies no additional complaints Endo Denies fatigue and Denies palpitations Edil/Lymph Denies easy bleeding and Denies lymphadenopathy Aller/Immun Denies lip swelling, Denies tongue swelling and Reports wheezing Physical Exam Vital Signs: Last Vital Signs Pulse 78 09/11/24 11:07 BP 116/60 09/11/24 11:07 Pulse Ox 98 09/11/24 11:07 Oxygen Delivery Method Room Air 09/11/24 11:07 BMI result Body Mass Index 24.7 Const General: alert HEENT Ears: TM abnormal retracted on the right Throat: Yes postnasal drainage and Yes cobblestoning Neck Neck: Yes normal visual inspection, Yes full ROM and Yes no lymphadenopathy Chest Chest palpation & inspection: normal inspection of the chest Resp Effort & Inspection: normal respiratory effort Auscultation: no wheezes and diminished lung sounds Cardio Rate: regular rate Rhythm: regular rhythm Heart sounds: S1 normal heart sound present and S2 normal heart sound present GI Palpation (GI): Soft to palpation and nontender Auscultation: normal bowel sounds Skin General skin exam: rashes and/or lesions noted Extrem General: No clubbing, No cyanosis and Yes edema Assessment & Plan Assessment & Plan (1) Reactive airway disease with acute exacerbation: Code(s): J45.901 - Unspecified asthma with (acute) exacerbation Category: Medical Qualifiers: Asthma persistence: persistent Asthma severity: moderate Qualified Code(s): J45.41 - Moderate persistent asthma with (acute) exacerbation (2) Chronic restrictive lung disease: Code(s): J98.4 - Other disorders of lung Category: Medical (3) Dyspnea: Code(s): R06.00 - Dyspnea, unspecified Category: Medical Qualifiers: Dyspnea type: dyspnea on exertion Qualified Code(s): R06.00 - Dyspnea, unspecified (4) Severe scoliosis: Code(s): M41.9 - Scoliosis, unspecified Category: Medical (5) Nocturnal hypoxia: Comment: due to her restrictive lung disease Code(s): G47.34 - Idiopathic sleep related nonobstructive alveolar hypoventilation Category: Medical (6) Pulmonary nodules: Code(s): R91.8 - Other nonspecific abnormal finding of lung field Category: Medical Plan CPT with nebulized therapy with xopenex and hypertonic saline Xopenex BID and as needed continue Asmanex Acapella valve for CPT Oxygen 2 L/min while sleeping CT chest EKG consider bronchoscopy Ipratropium nasal spray Tessalon pearls as needed F/U 3-4 months Orders: Orders ECG 12 lead EKG Today J44.9 - Chronic obstructive pulmonary disease, unspecified CT chest wo IV con Today M41.9 - Scoliosis, unspecified, R05.3 - Chronic cough, R91.8 - Other nonspecific abnormal finding of lung field Medications: New sodium chloride 3% 4 mL inhalation BID 240 mL 11RF 30 days Refilled benzonatate 200 mg PO BID PRN 60 caps 3RF cough 30 days mometasone 100 mcg/actuation (Asmanex HFA) 2 puffs inhalation BID 13 grams 11RF 30 days Coding Level of Care Code Est Pt Level 4 (60278) Complex EM visit Add On G2211 Diagnoses Moderate persistent reactive airway disease with acute exacerbation J45.41 Asthma persistence: persistent Asthma severity: moderate Chronic restrictive lung disease J98.4 Dyspnea on exertion R06.00 Dyspnea type: dyspnea on exertion Severe scoliosis M41.9 Nocturnal hypoxia G47.34 Pulmonary nodules R91.8 Time Spent (min) 18
--- OUTSIDE RECORDS SUMMARY | 2024-09-11 11:33 | XMS_ITS | Data Portability ---
Author Organization [place] - [facility], Allergy Address [address] [place] [address] Care Team Providers Care Adjustment Examiner Name Role Phone IGOR NUGENT Primary Care Provider Assessment Encounter Date Assessment Date Assessment LastModified by Organization Details LastModified Time 03/16/2024 03/16/2024 Impacted cerumen was debrided bilaterally today. Ear examination today is otherwise normal with a well aerated middle ear space. Reassurance was provided there is no middle ear fluid. She will follow up with SUYAPA Alejandro, in four months in our [place] office. [email or web address] Not available 03/16/2024 15:44:00 07/12/2024 07/12/2024 69-year-old female presents for cerumen removal. Cerumen impaction removed bilaterally. Bilateral TMs are intact with well aerated middle ear spaces. She will follow-up in 3-4 months for routine debridement, or sooner with any concerns. [email or web address] Not available 07/12/2024 11:51:22 Plan of Treatment Reminders Order Date Submit Date Provider Last Modified By Organization Details Last Modified Time Details Appointments Establish ed 15 2024 11:30A M BAHMAN MONTES DE OCA PA-C Not available Not available Not available Lab None recorded. Referral None recorded. Procedures None recorded. Surgeries None recorded. Imaging None recorded. Medication Orders None recorded. Patient TargetsNo targets recorded. Patient InstructionsNo instructions recorded. Reason for Referral None Reported. 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 Other specified disorders of temporoma ndibular joint; Note: Date Diagnosed : 08/03/2016 11:56 AM (M26.69) Not Available [facility] 4 02:15:59 Subjectiv e tinnitus 17361182 Active 2013 Subjectiv e tinnitus; Note: Date Diagnosed : 4 9:15 AM (388.31) Not Available [facility] 4 02:15:29 Bilateral temporoma ndibular joint pain 95057309590 650472 Active 2017 Arthralgi a of bilateral temporoma ndibular joint; Note: Date Diagnosed : 8 3:25 PM (M26.623) Not Available [facility] 4 02:15:22 Disorder of right Eustachia n tube 16712600902 Active 2022 Other specified disorders of Eustachia n tube, right ear; Note: Date Diagnosed : 02/05/2023 5:03 PM (H69.81) Not Available [facility] 4 02:15:20 Impacted cerumen in right ear 38555432813 71171 Active 2022 Impacted cerumen, right ear; Note: Date Diagnosed : 09/16/2022 4:00 PM (H61.21) Not Available [facility] 4 02:15:39 Otalgia of right ear 2806045288 Active 2022 Otalgia, right ear; Note: Date Diagnosed : 02/05/2023 3:27 PM (H92.01) Otalgia , right ear; Note: Date Diagnosed : 8 1:33 PM (H92.01) ; Start Date : 8 Not Available [facility] 4 02:16:16 Chronic rhinitis 56985543 Active 2016 Chronic rhinitis; Note: Date Diagnosed : 05/07/2016 1:15 PM (J31.0) Not Available [facility] 4 02:16:20 Impacted cerumen 96854167 Active 2014 Impacted cerumen; CMS Risk: low risk CMS Treatment : new problem (to examiner) : no additiona l workup planned Impacted cerumen; CMS Risk: low risk CMS Treatment : new problem (to examiner) : no additiona l workup planned N ote: Date Diagnosed : 4 4:01 PM (380.4) Impacte d cerumen; CMS Risk: low risk CMS Treatment : new problem (to examiner) : no additiona l workup planned ; Start Date : 5 Impacte d cerumen; CMS Risk: low risk CMS Treatment : new problem (to examiner) : no additiona l workup planned N ote: Date Diagnosed : 4 4:01 PM (380.4) ; Start Date : 5 Not Available [facility] 4 02:16:26 Impacted cerumen of bilateral ears 71610652648 41411 Active 2017 Impacted cerumen, bilateral Impacted cerumen, bilateral ; Note: Date Diagnosed : 11/15/2015 2:00 PM (H61.23) ; Start Date : 6 Impacte d cerumen, bilateral ; Note: Date Diagnosed : 5 12:07 PM (H61.23) ; Start Date : 5 Not Available [facility] 4 02:16:18 Hyperacus is 33307845 Active 2013 Hyperacus is; Note: Date Diagnosed : 4 9:16 AM (388.42) Not Available [facility] 4 02:16:09 Atypical facial pain 53432645 Active 2017 Atypical facial pain; Note: Changed from R51 to G50.1 (08/05/2021 3:05 PM) , Date Diagnosed : 11/04/2017 2:34 PM (R51) Not Available [facility] 4 02:16:12 Jaw pain 059541014 Active 2013 Periauric ular pain of TMJ origin; Note: Date Diagnosed : 4 9:14 AM (784.92) Not Available [facility] 4 02:16:13 Acute sinusitis 49671378 Active 2015 Other acute sinusitis ; Note: Date Diagnosed : 6 2:00 PM (J01.80) Not Available [facility] 4 02:15:23 Pain of right temporoma ndibular joint 05679842656 345715 Active 2022 Arthralgi a of right temporoma ndibular joint; Note: Date Diagnosed : 02/05/2023 5:03 PM (M26.621) Not Available [facility] 4 02:16:01 Non-toxic nodular goiter 895930022 Active 2015 Unspecifi ed multinodu lar goiter; Note: Date Diagnosed : 07/09/2015 5:00 PM (241.9) Not Available [facility] 4 02:16:37 Respirato ry finding 888699509 Active 2015 Feeling of foreign body in throat; Note: Date Diagnosed : 08/14/2015 2:31 PM (R09.89) Not Available [facility] 4 02:15:56 Cardiovas cular finding 160775084 Active 2015 Feeling of foreign body in throat; Note: Date Diagnosed : 08/14/2015 2:31 PM (R09.89) Not Available [facility] 4 02:15:56 Dizziness and giddiness 946165013 Active 2018 Dizziness and giddiness ; Note: Date Diagnosed : 10/31/2018 2:32 PM (R42) Light-h eadedness ; Note: Date Diagnosed : 8 3:25 PM (R42) ; Start Date : 8 Dizzine ss and giddiness ; Note: Date Diagnosed : 02/03/2018 1:18 PM (R42) ; Start Date : 8 Not Available [facility] 4 02:15:28 Gastroeso phageal reflux disease without esophagit is 040995121 Active 2015 Gastro-es ophageal reflux disease without esophagit is; Note: Date Diagnosed : 08/14/2015 2:22 PM (K21.9) Not Available [facility] 4 02:16:30 Sensorine ural hearing loss 36823891 Active 2019 Sensorine ural hearing loss, unilatera l, left ear, with unrestric shanda hearing on the contralat eral side; Note: Date Diagnosed : 01/12/2020 4:33 PM (H90.42) Not Available [facility] 4 02:15:39 Bilateral tinnitus 73127122953 02 Active 2018 Tinnitus, bilateral ; Note: Date Diagnosed : 10/31/2018 2:32 PM (H93.13) Not Available [facility] 4 02:15:57 Simple goiter 609339120 Active 2015 Goiter NOS; Note: Date Diagnosed : 07/09/2015 5:02 PM (E04.9) Not Available [facility] 4 02:16:34 Patulous eustachia n tube 35586527 Active 2013 Patulous Eustachia n tube; Note: Date Diagnosed : 4 9:15 AM (381.7) Not Available [facility] 4 02:15:32 Asymmetri isela sensorine ural hearing loss 833750172 Active 2013 Hearing loss: Sensorine ural hearing loss, asymmetri isela; Note: Date Diagnosed : 4 4:01 PM (389.16) Not Available [facility] 4 02:16:00 Abnormal auditory perceptio n 08033968 Active 2022 Other abnormal auditory perceptio ns, bilateral ; Note: Date Diagnosed : 02/05/2023 4:09 PM (H93.293) Other abnormal auditory perceptio ns, bilateral ; Note: Date Diagnosed : 02/01/2017 1:28 PM (H93.293) ; Start Date : 7 Not Available [facility] 4 02:15:55 Anxiety disorder 473712011 Active 2018 Anxiety disorder, unspecifi ed; Note: Date Diagnosed : 11/21/2018 6:32 PM (F41.9) Not Available [facility] 4 02:15:43 Refractor y migraine 996623912 Active 2018 Other migraine, intractab le, without status migrainos us; Note: Date Diagnosed : 11/21/2018 5:12 PM (G43.819) Not Available [facility] 4 02:16:09 Problem Notes None recorded. Procedures Surgical History Date Name Laterality Status Provider Name and Address Organization Details Recorded Time 5 Cerumen removal without microscope bilat completed BAHMAN MONTES DE OCA PA-C [address] [place] [address],[place] [address], [place], [address], [facility] 07/12/2024 11:50:14 Imaging Results None recorded. Procedure Notes None recorded. Medical Equipment None Reported. Allergies Allergen ID Allergen Name Allergen Category Reaction Reaction Severity Criticality Documentation Date Start Date Code Code System Note Provider Name and Address Organization Details Recorded Time 14003 doxycycli ne hyclate medicatio n angioedem a Not available Not available 09/14/2023 99060 RxNorm React ion: swell ing of tongu e or mouth ;; Not Available [facility] 4 00:52:26 89615 Depo-Medr ol medicatio n other Not available Not available 09/14/2023 98550 RxNorm React ion: unkno wn, unspe cifie d;; Not Available [facility] 4 00:52:34 Medications Name Sig Start Date Stop Date Status Note LastModified by Organization Details LastModified Time Singulair 10 mg tablet Take 1 tablet by mouth 05/07 completed Medicati on ID: [id number] B rand Name: Singulai r Send Method: E-Prescr ibed Sub s Allowed: subs OK Speci al Instruct ion: Take 1 tablet by mouth every day in the evening Medicati onGeneri cName: Singulai r Not Available Not Available Not Available carisopro dol 350 mg tablet active Not Available Not Available No t Available cyclobenz aprine 10 mg tablet 02/21 completed Medicati on ID: [id number] Du ration Value: 30 Reason: () Brand Name: cycloben zaprine Send Method: E-Prescr ibed Sub s Allowed: subs OK Speci al Instruct ion: TAKE 3 TABS EVERY NIGHT Me dication GenericN micheline: cycloben zaprine Not Available Not Available Not Available Miralax 17 gram/dose oral powder 2016 active Medicati on ID: [id number] B rand Name: Miralax Send Method: E-Prescr ibed Sub s Allowed: subs OK Medic ationGen ericName : Miralax Not Available Not Available Not Available methocarb talib 500 mg tablet TAKE 3 TABLETS BY MOUTH TWICE A DAY FOR 14 DAYS active Not Available Not Available No t Available metformin 500 mg tablet active Not Available Not Available Not Available clonidine HCl 0.1 mg tablet 03/14 completed Medicati on ID: [id number] D uration Value: 14 Brand Name: clonidin e HCl Send Method: E-Prescr ibed Sub s Allowed: subs OK Speci al Instruct ion: TAKE 1 TABLET BY MOUTH 3 TIMES A DAY NEEDED FOR ANXIETY Medicati onGeneri cName: clonidin e HCl Not Available Not Available Not Available prednison e 10 mg tablet active Not Available Not Available Not Available benzonata te 200 mg capsule active Not Available Not Available Not Available valacyclo vir 1 gram tablet 02/21 completed Medicati on ID: [id number] Du ration Value: 7 Reason: () Brand Name: valacycl ovir Sen d Method: E-Prescr ibed Sub s Allowed: subs OK Speci al Instruct ion: TAKE 1 TABLET BY MOUTH EVERY 8 HOURS Me dication GenericN micheline: valacycl ovir Not Available Not Available Not Available amoxicill in 600 mg-potass ium clavulana te 42.9 mg/5 mL oral suspensio n 03/14 completed Medicati on ID: [id number] D uration Value: 10 Brand Name: amoxicil radha-pot clavulan ate Send Method: E-Prescr ibed Sub s Allowed: subs OK Speci al Instruct ion: TAKE 7ML BY MOUTH EVERY 12 HOURS Me dication GenericN micheline: amoxicil radha-pot clavulan ate Not Available Not Available Not Available sodium chloride 3 % for nebulizat ion INHALE 4 ML VIA NEBULIZE R 2 TIMES A DAY FOR 90 DAYS active Not Available Not Available No t Available clonazepa m 0.5 mg tablet 03/14 completed Medicati on ID: [id number] D uration Value: 30 Brand Name: clonazep am Send Method: E-Prescr ibed Sub s Allowed: subs OK Speci al Instruct ion: TAKE 1 TABLET BY MOUTH TWICE A DAY Medi cationGe nericNam e: clonazep am Not Available Not Available Not Available clobetaso l 0.05 % topical cream APPLY TWICE DAILY TO RASH ON FINGERS UP TO 2 WEEKS/MO NTH NEEDED. active Not Available Not Available No t Available acetazola mide 250 mg tablet 02/21 completed Medicati on ID: [id number] Du ration Value: 30 Reason: () Brand Name: acetazol amide Se nd Method: E-Prescr ibed Sub s Allowed: subs OK Speci al Instruct ion: TAKE 2 TABLETS BY MOUTH TWICE A DAY Medi cationGe nericNam e: acetazol amide Not Available Not Available Not Available prednison e 5 mg/5 mL oral solution active Not Available Not Available Not Available spironola ctone 25 mg tablet 06/15 completed Medicati on ID: [id number] Du ration Value: 30 Reason: () Brand Name: spironol actone S end Method: E-Prescr ibed Sub s Allowed: subs OK Medic ationGen ericName : spironol actone Not Available Not Available Not Available amoxicill in 500 mg tablet 1 tablet by mouth 11/04 completed Medicati on ID: [id number] P rescribe d By Name: AGNES Nicole nd Name: amoxicil radha Send Method: E-Prescr ibed Sub s Allowed: subs OK Medic ationGen ericName : amoxicil radha Not Available Not Available Not Available ketorolac 0.5 % eye drops INSTILL 1 DROP INTO BOTH EYES 4 TIMES A DAY FOR 4 DAYS AFTER LASER active Not Available Not Available No t Available amoxicill in 400 mg-potass ium clavulana te 57 mg/5 mL oral suspensio n TAKE 10.1 ML BY MOUTH 2 TIMES A DAY,X7 DAYS TAKE WITH FOOD. TAKE A PROBIOTI C IN BETWEEN DOSES active Not Available Not Available No t Available amoxicill in 875 mg tablet 02/21 completed Medicati on ID: [id number] Du ration Value: 7 Reason: () Brand Name: amoxicil radha Send Method: E-Prescr ibed Sub s Allowed: subs OK Speci al Instruct ion: TAKE 1 TABLET TWICE A DAY Medi cationGe nericNam e: amoxicil radha Not Available Not Available Not Available famotidin e 20 mg tablet 1 tablet by mouth 2016 active Medicati on ID: [id number] P rescribe d By Name: AGNES Nicole nd Name: famotidi ne Send Method: E-Prescr ibed Sub s Allowed: subs OK Medic ationGen ericName : famotidi ne Not Available Not Available Not Available lorazepam 0.5 mg tablet 2017 active Medicati on ID: [id number] D uration Value: 30 Brand Name: lorazepa m Send Method: E-Prescr ibed Sub s Allowed: subs OK Speci al Instruct ion: TAKE 1 TABLET BY MOUTH THREE TIMES A DAY NEEDED M edicajemo nGeneric Name: lorazepa m Not Available Not Available Not Available amitripty line 10 mg tablet 03/14 completed Medicati on ID: [id number] Du ration Value: 90 Brand Name: amitript yline Se nd Method: E-Prescr ibed Sub s Allowed: subs OK Medic ationGen ericName : amitript yline Not Available Not Available Not Available meclizine 25 mg tablet 03/14 completed Medicati on ID: [id number] D uration Value: 30 Brand Name: meclizin e Send Method: E-Prescr ibed Sub s Allowed: subs OK Medic ationGen ericName : meclizin e Not Available Not Available Not Available benzonata te 100 mg capsule active Not Available Not Available Not Available doxycycli ne monohydra te 100 mg capsule 02/21 completed Medicati on ID: [id number] Du ration Value: 30 Reason: () Brand Name: doxycycl ine monohydr ate Send Method: E-Prescr ibed Sub s Allowed: subs OK Medic ationGen ericName : doxycycl ine monohydr ate Not Available Not Available Not Available Robaxin-7 50 750 mg tablet 11/04 completed Medicati on ID: [id number] B rand Name: Robaxin- 750 Send Method: E-Prescr ibed Sub s Allowed: subs OK Medic ationGen ericName : Robaxin- 750 Not Available Not Available Not Available lidocaine 5 % topical patch active Not Available Not Available Not Available furosemid e 20 mg tablet TAKE 1 TABLET BY MOUTH EVERY DAY FOR 3 DAYS active Not Available Not Available No t Available gabapenti n 100 mg capsule TAKE 1 CAPSULE BY MOUTH 3 TIMES A DAY active Not Available Not Available No t Available levalbute rol 1.25 mg/3 mL solution for nebulizat ion active Not Available Not Available Not Available azelastin e 137 mcg (0.1 %) nasal spray 2 spray into both nostrils active Not Available Not Available No t Available azithromy carlitos 200 mg/5 mL oral suspensio n active Not Available Not Available Not Available ketoconaz ole 2 % topical cream APPLY TWICE DAILY TO RASH UNTIL RESOLVED THEN 1 MORE WEEK active Not Available Not Available No t Available fluticaso ne propionat e 50 mcg/actua tion nasal spray,tiffanie pension 2014 active Medicati on ID: [id number] Du ration Value: 30 Brand Name: fluticas one Send Method: E-Prescr ibed Sub s Allowed: subs OK Speci al Instruct ion: USE 1 SPRAY IN EACH NOSTRIL TWICE A DAY Medi cationGe nericNam e: fluticas one Not Available Not Available Not Available doxycycli ne hyclate 100 mg tablet 1 tablet by mouth 2015 active Medicati on ID: [id number] D uration Value: 10 Prescri bed By Name: AGNES Nicole nd Name: doxycycl ine hyclate Send Method: E-Prescr ibed Sub s Allowed: subs OK Medic ationGen ericName : doxycycl ine hyclate Not Available Not Available Not Available fluticaso ne propionat e 110 mcg/actua tion HFA aerosol inhaler active Not Available Not Available Not Available azithromy carlitos 500 mg tablet active Not Available Not Available No t Available cyclospor ine 0.05 % eye drops in a dropperet te INSTILL 1 DROP INTO EACH EYE TWICE DAILY active Not Available Not Available No t Available metformin ER 750 mg tablet,ex tended release 24 hr active Not Available Not Available Not Available metformin 500 mg/5 mL oral solution active Not Available Not Available Not Available nitrofura ntoin monohydra te/macroc rystals 100 mg capsule TAKE 1 CAPSULE BY MOUTH 2 TIMES A DAY X 5 DAYS, WITH FOOD active Not Available Not Available No t Available Xopenex HFA 45 mcg/actua tion aerosol inhaler active Not Available Not Available Not Available Probiotic 2016 active Medicati on ID: [id number] B rand Name: probioti c Send Method: E-Prescr ibed Sub s Allowed: subs OK Medic ationGen ericName : probioti c Not Available Not Available Not Available Folgard 2,000 unit-800 mcg-0.32 mg tablet 2016 active Medicati on ID: [id number] B rand Name: Hoagard Send Method: E-Prescr ibed Sub s Allowed: subs OK Medic ationGen ericName : Folgard Not Available Not Available Not Available melatonin 1 mg sublingua l tablet 2016 active Medicati on ID: [id number] B rand Name: melatoni n Send Method: E-Prescr ibed Sub s Allowed: subs OK Medic ationGen ericName : melatoni n Not Available Not Available Not Available Asmanex HFA 100 mcg/actua tion aerosol inhaler active Not Available Not Available Not Available Vitals Date Recorded Body height Body mass index (BMI) Body weight Provider Name and Address Organization Details Last Updated DateTime 03/16/2024 170.18 cm 23.5 kg/m2 50557.86 g Papa Naik [place] - [facility] 03/16/2024 15:26:57 Social History None recorded. Functional Status None recorded. Mental Status None recorded. Family History Nothing Reported. Medical History No medical history recorded. Gynecological HistoryNo gynecological history recorded. Obstetrics History GPAL:G 0 P 0 0 0 0 Past Encounters Encounter ID Performer Location Encounter Start Date Encounter Closed Date Diagnosis/Indication Diagnosis SNOMED-CT Code Diagnosis ICD10 Code Diagnosis Note [id number] YVETTE JOYNER PA-C [facility] [place] [address] [place] [address] 03/16/2024 15:10:42 03/16/2024 15:39:23 Impacted cerumen of bilateral ears 4042041209 534104 H61.23 [id number] BAHMAN MONTES DE OCA PA-C [facility] [address] [address] 07/12/2024 11:25:26 07/12/2024 11:48:55 Impacted cerumen of bilateral ears 4297425590 756482 H61.23 Health Concerns Section Related Observation LastModified by Organization Detai ls LastModified Time None Recorded Concern Status LastModified by Organization Details LastModified Time None Recorded Advance Directives Directive None Recorded Payers Insurance Date Sequence Insurance Name Policy Number Policy Booker Covered Member ID Booker Member ID Guarantor Name 07/12/2024 1 [place]ICARE B-[place]: [facility] Kim Doan [id number] Kim Doan 07/12/2024 2 WPS - FOR LIFE (MEDICARE SUPPLEMENT) Kim Doan [id number] Kim Doan Notes Date Note Type Note Provider Name and Address Organization Details Recorded Time 03/16/2024 text/html 69 year old female presents today for cerumen removal.She has not been seen in about one year. Previously seen every four months or so.Long standing history of right sided facial pressure that has been evaluated in our office previously, and felt to be related to TMJ. SUMA LUQUE MD [address] [place] [address], [phone], [place] - [facility] 03/16/2024 17:28:58 07/12/2024 text/html 69 year old female presents for cerumen removal. No concerns today. Long standing history of right sided facial pressure that has been evaluated in our office previously, and felt to be related to TMJ. JUAN PIÑA MD [address] [place] [address], [phone], [place] - [facility] 07/12/2024 17:26:33 OBGyn Episode No OBEpisode recorded.
--- OUTSIDE RECORDS SUMMARY | 2024-09-11 11:34 | XMS_ITS ---
Author Organization [facility] Address [address] [place] [address] Care Team Providers Care Launch Leader Name Role Phone Eulogio Anthony MD Primary Care Provider Unava ilEliza Cadena [phone] Encounters Encounter Location Date Provider Diagnosis [facility] [address] [place] [address] 05/06/2023 Eliza Fernandes Plan Of Treatment No Information Progress Notes * Kim DOAN RDOB: (69 yo F)Acc No.[id number]:05/06/2023 Progress Note Patient:?Kim DOAN Provider:?Eliza Fernandes DPM :1955???Age:68 Y???Sex:Female D ate:05/06/2023 Address:[address] [place], [place] [id number] Pcp:Eulogio Anthony MD Subjective: * Chief Complaints: * ??? * Medical History:? Objective: * Vitals:? Assessment: Plan: * Treatment: * Images: * The named appointment provid er may or may not be the originator of this progress note, and it is not deemed complete until electronically signed by the appointment provider. Sign off status: Pending * Provider:?Eliza Fernandes DPM Date:?2023 Generated for Jennifer major/Noelle/eTransmitting on:?09/11/2024 11:34 AM EDT
--- OUTSIDE RECORDS SUMMARY | 2024-09-11 11:34 | XMS_ITS | Continuity of Care Document ---
Author Organization [facility] Address [address] [place] [address] Phone [phone] Social History Type Date Description Comments Sex Unknown Medical Devices Description No Information Available Encounters Description No Information Available Assessments Description No Information Available Plan of Treatment No Information Available Functional Status Description No Information Available Mental Status Description No Information Available Referrals Description No Information Available
--- OUTSIDE RECORDS SUMMARY | 2024-09-11 11:34 | XMS_ITS | Patient Health Record ---
Author Organization [facility] Address [address] [place] [address] Care Team Providers Care Stonecutter Hand Name Role Phone Manuel Hartley Primary Care Provider Tejas Gonsalez Unavailable Unavailable Reason For Referral No Information Medications Medication SIG (Take, Route, Frequency, Duration) Notes Start Date End Date Status ALPRAZolam 0.5 MG 0 Oral PRn, uses 1/week for 0 07/30/2013 Active Albuterol 0 for 0 *please review for potential update for e-prescription and drug interaction check* 07/30/2013 Active acetaZOLAMIDE 250 MG 120 Oral Increase 1 tab q 3 days up to full dose 2 tabs bid. for 30 07/31/2013 Active NORTRIPTYLINE HCL 10 MG CAP 120 Increase 1 cap q 7 days up to 5 cap qhs. for 30 *please review for potential update for e-prescription and drug interaction check* 04/22/2015 Active Acetaminophen Extra Strength 500 MG 0 Oral 1-2 prn for 30 04/21/2015 Active MULTIVITAMINS TABLET 0 for 0 *please rev iew for potential update for e-prescription and drug interaction check* 07/30/2013 Active MONTELUKAST SOD 10 MG TABLET 0 1 qhs for 30 *please review for potential update for e-prescription and drug interaction check* 10/10/2015 Active AMITRIPTYLINE HCL 10 MG TAB 0 2 qhs x many years for 0 *please review for potential update for e-prescription and drug interaction check* 07/30/2013 Active MIRALAX POWDER PACKET 17 GRAM 0 1 qam for 0 *please review for potential update for e-prescription and drug interaction check* 07/30/2013 Active ALBUTEROL 5 MG/ML SOLUTION 0 Per nebulizer, rarely for 0 *please review for potential update for e-prescription and drug interaction check* 07/30/2013 Active MAGNESIUM GLYCINATE 11.7% POWD 0 120 mg caps tid + 2 qhs for 0 *please review for potential update for e-prescription and drug interaction check* 07/30/2013 Active Vitamin B-2 100 mg 120 Oral Take 2 tabs bid with meals (4 tabs qd). for 30 07/12/2014 Active FLOVENT HFA 110 MCG INHALER MCG/ACTUATION 0 PRn for 0 *please review for potential update for e-prescription and drug interaction check* 07/30/2013 Active Famotidine 20 MG 0 Oral 1 qd for gerd for 30 reconciled 10/04/2015 Active DOXYCYCLINE MONO 100 MG CAP 60 1 bid for 0 *please review for potential update for e-prescription and drug interaction check* 09/27/2013 Active Echinacea 400 MG 0 Oral 1 qd for 0 07/11/2014 Active COENZYME Q-10 100 MG SOFTGEL 0 1 qam for 0 *please review for potential update for e-prescription and drug interaction check* 07/30/2013 Active ZINC 10 MG LOZENGE 0 +elderbery for 0 *please re view for potential update for e-prescription and drug interaction check* 07/11/2014 Active Chlorpheniramine Maleate 4 mg 0 Oral PRn for 0 07/11/2014 Active CALCIUM CIT-VIT D 315-200 TAB MG-UNIT 0 2x 400 mg qd for 0 *please review for potential update for e-prescription and drug interaction check* 07/30/2013 Active TURMERIC 500 MG CAPSULE 0 bid for 0 *please review for potential update for e-prescription and drug interaction check* 07/30/2013 Active ASTAXANTHIN 4 MG SOFTGEL 0 Antioxidant vitamin for 0 *please review for potential update for e-prescription and drug interaction check* 07/30/2013 Active PROBIOTIC & ACIDOPHILUS CAP 300-250 MILLION CELL-MG 0 1 qam for 0 *please review for potential update for e-prescription and drug interaction check* 07/30/2013 Active PROAIR HFA 90 MCG INHALER MCG/ACTUATION 0 PRn for 0 *please review for potential update for e-prescription and drug interaction check* 07/30/2013 Active Plan Of Treatment No Information Insurance Providers Payer Name Payer Address Payer Phone Subscriber Number Group Number Insured Name Patient Relationship to Insured Coverage Start Date Coverage End Date MEDICARE B [address] JORDAN ROBERTO [id number] Kim Doan Self - patient is the insured BC OF [place] [address] [place], [place] [id number] Kim Doan Self - patient is the insured
--- OUTSIDE RECORDS SUMMARY | 2024-09-11 11:34 | XMS_ITS | Patient Health Record ---
Author Organization [facility] Address [address] [place] [address] Care Team Providers Care E Commerce Marketing Analyst Name Role Phone Eulogio Anthony MD Primary Care Provider Unamari Eliza Lord Unavailable [phone] Allergies Allergen (clinical drug ingredient) Drug/Non Drug Allergy documented on EMR Reaction Allergy Type Onset Date Status methylprednisolone Depo-Medrol hives on face/neck Drug Allergy Active Iodine increase in anxiety Drug Allergy Active Cortisone increase in anxiety Drug Allergy Active doxycycline Doxycycline hives on face/neck Drug Allergy Active Reason For Referral No Information Medications Medication SIG (Take, Route, Frequency, Duration) Notes Start Date End Date Status LORazepam 0.5 MG 1 tablet at bedtime as needed Orally Once a day PRN Active Ciclopirox Olamine 0.77 % 1 application Externally Twice a day for 30 days Active Night Splint AFO - L1930 as directed 09/09/2020 Not-Taking Elavil Not-Taking Cromolyn Sodium Acti ve Cequa 0.09 % 1 drop into affected eye Ophthalmic every 12 hrs Active Fluticasone Furoate 27.5 MCG/SPRAY 1 spray in each nostril Nasally Once a day for 30 day(s) PRN Active Soma 350 MG 1 tablet as needed Orally Four times a day PRN Active vicodin 1 tab Oral for 14 days PRN Active Compression Stockings 20-30mm Hg 1 pair wear daily for 30 days Active Social History Tobacco Use: Social History Observation Description Date Details (start date - stop date) Never Smoker NA - NA Tobacco Use/Smoking Question Answer Notes Are you a: nonsmoker Additional Findings: Tobacco Non-User Current no n-smoker Alcohol Screen Question Answer Notes Did you have a drink containing alcohol in the p ast year? No Points 0 Interpretation Negative Tobacco use other than smoking: Question Answer Notes Are you an other tobacco user? 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 Plan Of Treatment Pending Test Test Name Order Date [id number] NAIL, 6 OR MORE 11/30/2019 [id number] NAIL, 6 OR MORE 03/04/2020 [id number] NAIL, 6 OR MORE 06/03/2020 [id number] NAIL, 6 OR MORE 09/09/2020 [id number] NAIL, 6 OR MORE 11/21/2020 [id number] NAIL, 6 OR MORE 01/23/2021 [id number] NAIL, 6 OR MORE 03/23/2022 [id number] NAIL, 6 OR MORE 05/25/2022 [id number] NAIL, 6 OR MORE 07/27/2022 [id number] NAIL, 6 OR MORE 10/01/2022 [id number] NAIL, 6 OR MORE 12/10/2022 [id number] NAIL, 6 OR MORE 01/01/2022 [id number] Plate 02/02/2022 [id number] Plate 04/21/2021 [id number] Plate 01/01/2022 [id number] Plate 11/21/2020 Insurance Providers Payer Name Payer Address Payer Phone Subscriber Number Group Number Insured Name Patient Relationship to Insured Coverage Start Date Coverage End Date Medicare National [employer] [address] [place] [address] [id number] Kim Doan Self - patient is the insured [facility] [address] [place] [id number] Kim Doan Self - patient is the insured Medical (General) History Medical History History ICD Code Anxiety Arthritis Back,Hip,and Knee pain Cataracts Diverticulosis Fibromyalgia Headaches/Migraines Hiatal hernia Liver disease -NAFLD Lyme disease Reflux ( GERD) Sciatica Sinus conditions Hashimotos thyroiditis Measles Mumps Chicken pox Joint implants/screws Transfusions Scoliosis- Silva Daniel implant 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
--- OUTSIDE RECORDS SUMMARY | 2024-09-11 11:34 | XMS_ITS | Clinical Summary ---
Author Organization [facility] [address] [facility] Address [address] [place] [address] Phone Care Team Providers Care Summer Child Caregiver Name Role Phone Eulogio Anthony MD Primary Care Provider [phone] Allergies Active Allergy Reactions Criticality Noted Date Comments Ampicillin 11/07/2020 Corticosteroids (Glucocorticoids) 11/07/2020 Doxycycline 11/07/2020 Other Reaction(s): Hives/Urticaria Erythromycin 11/07/2020 Methylprednisolone Acetate Depo-medrol Triamcinolone Acetonide 11/07/2020 Kenalog Medications ascorbic acid (VITAMIN C) 1,000 mg tablet Take 1,000 mg by mouth daily. Active carisoprodol (SOMA ORAL) Take by mouth at bedtime as needed. Active chlorpheniramine /dextromethorp (MAXI-TUSS DM,CHLORPHENIRAM INE, ORAL) CHLORPHENIRAM INE-DM OR Take by mouth. Active cholecalciferol (VITAMIN D-3) 5,000 Units tablet Take by mouth. Active coenzyme Q-10 100 mg capsule Take by mouth daily. Active cycloSPORINE (Cequa) 0.09 % dropperette apply to the eye daily. Active FAMOTIDINE ORAL Take by mouth. Active hydrocodone/acet aminophen (VICODIN ORAL) Take by mouth. Active LORazepam (ATIVAN) 0.5 mg tablet Take 0.5 mg by mouth every 6 hours as needed. Active MAGNESIUM ORAL Take by mouth. Active melatonin 3 mg tablet Take by mouth at bedtime. Active ZINC ORAL Take by mouth. Active polyethylene glycol 3350 (MIRALAX ORAL) Take by mouth. Active Lactobacillus acidophilus (PROBIOTIC ORAL) Take by mouth. Active THIAMINE HCL, VITAMIN B1, ORAL Thiamine HCl (THIAMINE OR) Take by mouth Active Active Problems Problem Noted Date Diagnosed Date Left atrial enlargement 11/07/2020 Overview (05/15/2024): Last Assessment & Plan: Left atrial enlargement no evidence of significant mitral vegetation or pulmonary hypertension at this time discussed with her the finding the possible implications for future issues with ClydeShelbie lou the need to contact us if she develops palpitations or increasing shortness of breath but no intervention necessary at this time Mitral valve prolapse 11/07/2020 Overview (05/15/2024): Last Assessment & Plan: Mitral prolapse without regurgitation. Most likely etiology for palpitations. Palpitations 11/07/2020 Overview (05/15/2024): Last Assessment & Plan: Patient thinks that her palpitations are getting worse so we will set her up for a Holter monitor to assess for ectopy Medical History Medical History Date Comments Allergic rhinitis DX:Allergic rh initis Asthma DX:Asthma Cervical disc disease DX:Cervica l disc disease Chronic tension headache DX:Car Servicer leopoldo tension headache Depression DX:Depression Dyspnea on effort DX:Dyspnea on effort Fibromyalgia DX:Fibromyalgia AFSHIN (generalized anxiety disorder) DX:AFSHIN (generalized anxiety disorder) GERD (gastroesophageal reflux disease) DX:GERD (gastroesophageal reflux disease) Desean's disease DX:Desean 's disease Irritable bowel syndrome wit h constipation DX:Irritable bowel syndrome with constipation 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:Moderate somatic symptom disorder with predominant pain Multinodular goiter DX:Multinodu lar goiter Neck pain DX:Neck pain Scoliosis DX:Scoliosis 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 Family History Medical History Relation Name Comments Other: PD Mother Migraines Neg Hx Relation Name Status Comments Mother Social History Tobacco Use Types Packs/Day Years Used Date Smoking Tobacco: Never Smokeless Tobacco: Never Alcohol Use Standard Drinks/Week Comments Never 0 (1 standard drink = 0.6 oz pur e alcohol) Comments Unknown Sex and Gender Information Value Date Recorded Sex Assigned at Not on file Legal Sex Female 7:24 PM EST Gender Identity Not on file Sexual Orientation Not on file Obstetrics History Plan of Treatment Upcoming Encounters Date Type Department Care Team (Late st Contact Info) Description 09/13/2024 11:30 AM EDT Office Visit Gastroenterology - [address] [place] [address] Jeff Vargas MD [address] [place] [address] Health Maintenance Due Date Last Done Comments Breast Cancer Screening 1955 DTaP,Tdap,and Td Vaccines (1 - Tdap) 1973 Pneumococcal Vaccine: 50+ Ye ars (1 of 2 - PCV) 1973 Zoster Vaccines (1 of 2) 02/07/2004 RSV Immunization Adult Patie nts (1 - Risk 60-74 years 1-dose series) 2014 Cholesterol Screening (Lipid Panel) 04/04/2022 Colorectal Cancer Screening: Colonoscopy 04/04/2022 Falls Risk Assessment 04/04/2022 Hepatitis C Screening 04/04/2022 Medicare Annual Wellness Visit 04/04/2022 Osteoporosis Screening (Bone Density Screening) 04/04/2022 Social Influencers of Health Screening 04/04/2022 Depression Screening 08/20/2023 08/19/2022 COVID-19 Vaccine ( - 2023-2 5 season) 2024 Influenza Vaccine (Season Ended) 2025 HIB Vaccines Aged Out No longer eligi ble based on patient's age to complete this topic HPV Vaccines Aged Out No longer eligi ble based on patient's age to complete this topic Hepatitis A Vaccines Aged Out No long er eligible based on patient's age to complete this topic Hepatitis B Vaccines Aged Out No long er eligible based on patient's age to complete this topic IPV Vaccines Aged Out No longer eligi ble based on patient's age to complete this topic MMR Vaccines Aged Out No longer eligi ble based on patient's age to complete this topic Meningococcal ACWY Vaccine Aged Out N o longer eligible based on patient's age to complete this topic Meningococcal B Vaccine Aged Out No l onger eligible based on patient's age to complete this topic RSV Immunization Patients Un angely 20 months Aged Out No longer eligible b ased on patient's age to complete this topic Varicella Vaccines Aged Out No longer eligible based on patient's age to complete this topic Insurance MEDICARE Care Teams Summer Child Caregiver Relationship Specialty Start Date End Date Eulogio Anthony MD [address] [place] [address] [address] [facility] [place] [address] PCP - General 09/25/22
--- OUTSIDE RECORDS SUMMARY | 2024-09-11 11:34 | XMS_ITS ---
Author Organization [facility] Address [address] [place] [address] Care Team Providers Care Director Of Officiating Name Role Phone Eulogio Anthony MD Primary Care Provider Unava ilable Black, Eliza Unavailable [phone] REASON FOR VISIT cx 1/ Encounters Encounter Location Date Provider Diagnosis [facility] [address] [place] [address] 05/04/2023 Eliza Black Plan Of Treatment No Information Progress Notes * Kim DOAN RDOB: (68 yo F)Acc No.[id number]:05/04/2023 Patient:?Kim Doan :1955???Age:68 Y???Sex:Female Address:[address] [place] [address], [address] * true * Date:? Generated for Printi ng/Faxing/eTransmitting on:?09/11/2024 11:33 AM EDT
== END 2024-09-11 11:53 | disposition home or self-care (01) ==
LOC: HO.HPS 10:50
PROVIDERS: PCP Family Medicine; Visit Provider Hospitalist
DX: J45.41 Moderate persistent asthma with (acute) exacerbation (principal); J98.4 Other disorders of lung; R06.00 Dyspnea, unspecified; M41.9 Scoliosis, unspecified; G47.34 Idiopathic sleep related nonobstructive alveolar hypoventilation; R91.8 Other nonspecific abnormal finding of lung field
CPT/HCPCS: 99214; G2211

== ENCOUNTER → 2024-09-11 10:49 | Outpatient (BNVA) | payer MEDICARE, OTHER, SELFPAY | PROVIDERS: PCP Family Medicine; Visit Provider Hospitalist | DX: J44.9 Chronic obstructive pulmonary disease, unspecified (principal); J45.41 Moderate persistent asthma with (acute) exacerbation; J98.4 Other disorders of lung; G93.39 Other post infection and related fatigue syndromes; U09.9 Post COVID-19 condition, unspecified; R06.00 Dyspnea, unspecified; M41.9 Scoliosis, unspecified; G47.34 Idiopathic sleep related nonobstructive alveolar hypoventilation; R91.8 Other nonspecific abnormal finding of lung field; R05.3 Chronic cough; Z87.891 Personal history of nicotine dependence | CPT/HCPCS: 99212 ==

== ENCOUNTER 2024-11-17 12:37 | Outpatient (REF) | payer MEDICARE, OTHER, SELFPAY ==
--- OUTSIDE RECORDS SUMMARY | 2024-11-15 23:59 | XMS_ITS | Continuity of Care Document ---
Author Organization [facility] Address [address] [place] [address]- Care Team Providers Care Blindstitch Hemmer Name Role Phone Gabrielle RIVERA, Eulogio Julio Primary Care Physician Encounter [facility] Date(s): 10/16/24 - 11/15/24 [facility] [address] [place] [address] Attending Physician: Kei Ramsay Admitting Physician: AdmKei lorenzo Referring Physician: Admtr [id number] Encounter Type: Triage Allergies, Adverse Reactions, Alerts Substance Criticality Severity Reaction Reaction Severity Status ampicillin Active doxycycline 1 Active erythromycin Active triamcinolone nasal Anxiety Active Kenalog Active contrast media (gadolinium-based) Active DEPO-Medrol Active 1hives Medications Advil Liquigel 200 mg oral capsule 1 capsule = 200 mg, By Mouth, Every 6 hours, 0 Refills, Maintenance, 10/05/15 9:07:27 AM EDT Start Date: 10/05/15 Status: Ordered Repeat number: 1 Asmanex HFA 100 mcg/inh inhalation aerosol 1 inhalation = 100 mcg, Inhalation, 2 times a day, PRN asthma, 13 Unknown, 0 Refill(s), 0 Refills, 12/28/23 11:31:00 AM EDT, Partial fill upon patient request if the prescription is for a schedule II opioid drug. Start Date: 12/28/23 Status: Ordered Repeat number: 1 Ativan 0.5 mg oral tablet 1 tablet = 0.5 mg, By Mouth, 2 times a day, PRN as needed for anxiety, 0 Refills, Maintenance, 01/21/23 1:49:00 PM EDT, Tablet, Partial fill upon patient request if the prescription is for a schedule II opioid drug. Start Date: 01/21/23 Status: Ordered Repeat number: 1 chlorpheniramine 4 mg oral tablet 1 tablet = 4 mg, By Mouth, Every 4 hours, PRN allergies, 0 Refill(s), 0 Refills, 07/10/14 8:00:00 PMEDT, Partial fill upon patient request if the prescription is for a schedule II opioid drug. Start Date: 07/10/14 Status: Ordered Repeat number: 1 Colace sodium 100 mg oral capsule 100 mg, 1, capsule, By Mouth, Daily at bedtime, Refills 0, Maintenance, 07/28/24 11:29:00 AM EDT, Partial fill upon patient request if the prescription is for a schedule II opioid drug. Start Date: 07/28/24 Status: Ordered Repeat number: 1 CoQ10 = 300 mg, By Mouth, Daily, 0 Refills, Maintenance, 05/12/17 11:57:53 AM EST Start Date: 05/12/17 Status: Ordered Repeat number: 1 cromolyn 5.2 mg/inh nasal spray 1 spray, Nares, Both, Every 4 hours, PRN allergies, 0 Refills, Maintenance Start Date: 07/28/22 Status: Ordered Repeat number: 1 Ipratropium Neb, 4 times a day, Refills 0, Maintenance, 07/19/23 2:00:00 PM EDT Start Date: 07/19/23 Status: Ordered Repeat number: 1 levalbuterol 1.25 mg/3 mL inhalation solution 180 vials, 0 Refill(s), 0 Refills, 12/28/23 11:31:00 AM EDT, Partial fill upon patient request if the prescription is for a schedule II opioid drug. Start Date: 12/28/23 Status: Ordered Repeat number: 1 Low dose naltrexone compounded capsule 0.5 mg Low dose naltrexone compounded capsule 0.5 mg, See Instructions, # 90 capsule, Refills 2, Tot. Refills 2, Maintenance, Take nightly and titrate dosage slowly as tolerated. QUANTITY: 90. REFILLS: 2, 09/16/23 12:07:00 PM EDT, Supply Start Date: 09/16/23 Status: Ordered Quantity: 90.0 Unit: capsule Repeat number: 3 Magnesium Citrate = 300 mg, By Mouth, 2 times a day, 0 Refills, Maintenance, 01/21/23 1:49:00 PM EDT, Partial fill upon patient request if the prescription is for a schedule II opioid drug. Start Date: 01/21/23 Status: Ordered Repeat number: 1 Melatonin = 5 mg, By Mouth, Daily at bedtime, 0 Refills, Maintenance, 02/15/20 2:25:00 PM EDT Start Date: 02/15/20 Status: Ordered Repeat number: 1 Mucinex 600 mg oral tablet, extended release 1 tablet = 600 mg, By Mouth, Every 12 hours, 0 Refills, Maintenance, 07/28/24 11:29:00 AM EDT, Partial fill upon patient request if the prescription is for a schedule II opioid drug. Start Date: 07/28/24 Status: Ordered Repeat number: 1 Probiotic Formula 1 capsule, By Mouth, Daily, 0 Refills, Maintenance, 05/12/17 11:58:17 AM EST Start Date: 05/12/17 Status: Ordered Repeat number: 1 quercetin quercetin, 1, capsule, By Mouth, 2 times a day, Refills 0, Maintenance, 02/15/20 2:28:00 PM EDT, Supply Start Date: 02/15/20 Status: Ordered Repeat number: 1 Sodium Chloride, Inhalation 3% inhalation solution 720 mL, 0 Refill(s), INHALE 4 ML VIA NEBULIZER 2 TIMES A DAY FOR 90 DAYS, 0 Refills, 12/28/23 11:31:00 AM EDT, Partial fill upon patient request if the prescription is for a schedule II opioid drug. Start Date: 12/28/23 Status: Ordered Repeat number: 1 Trulance 3 mg oral tablet 1 tablet = 3 mg, By Mouth, Daily, 0 Refills, Maintenance, 10/16/24 11:35:00 AM EDT, Partial fill upon patient request if the prescription is for a schedule II opioid drug. Start Date: 10/16/24 Status: Ordered Repeat number: 1 Vitamin D3 2000 intl units oral capsule 1 capsule = 50 mcg, By Mouth, Daily, 0 Refills, Maintenance, 07/28/24 11:23:00 AM EDT, Partial fill upon patient request if the prescription is for a schedule II opioid drug. Start Date: 07/28/24 Status: Ordered Repeat number: 1 Xopenex HFA 45 mcg/inh inhalation aerosol 2 puffs, Inhalation, Every 4 hours, 0 Refills, Maintenance, 11/16/16 2:10:31 PM EDT Start Date: 11/16/16 Status: Ordered Repeat number: 1 Problem List Condition Confirmation Course Effective Dates Status H ealth Status Informant Allergic rhinitis Confirmed Active Asthma Confirmed Active Cervical disc disease Confirmed Active Chronic tension headache Confirmed Active ?Long COVID Confirmed Active Depression Confirmed Active Dyspnea on effort Confirmed Active Fibromyalgia Confirmed Active GERD (gastroesophageal reflux disease) Confirmed Active AFSHIN (generalized anxiety disorder) Confirmed Active 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 Confirmed Active Irritable bowel syndrome with constipation Confirmed Active Multinodular goiter Confirmed Active Neck pain Confirmed Active Palpitations Confirmed Active Screening breast examination Confirmed Active MAP EDITOR exam for high-risk Medicare patient Confirmed Active Scoliosis 1 Confirmed Active Moderate somatic symptom disorder with predominant pain Confirmed Active TMJ disease Confirmed Active TMJ syndrome Confirmed Active Thyroid nodule Confirmed Active Edema of both lower legs due to peripheral venous insufficiency Confirmed Active 1WITH HEALY WEI Social History Social History Type Response Smoking Status Never smoker; Tobacc o user in household: No entered on: 10/05/15 Sex Sex Representation Female (finding) Patient Care team information Care Team Personnel Name: Eulogio Anthony MD Position: [facility] Physician - Primary Care Member Role: PCP [address]: [address] [place] [id number] Telecom: Care Team Related Persons Name: PO BROWN Insurance Providers Guarantor name: CHARLY BROWN Health Plan Information #: 1 Payer: MEDICARE B Payer Identifier: Member Number: [id number] Group Number: Subscriber Identifier: [id number] Relationship to Subscriber: self Coverage Type: NA Coverage Verification Date: Telecom: Address: Health Plan Information #: 2 Payer: FOR LIFE Payer Identifier: Member Number: [id number] Group Number: Subscriber Identifier: [id number] Relationship to Subscriber: self Coverage Type: For Life--Medicare Supplement Coverage Verification Date: Telecom: Address:
--- NOTE | ~2024-11-17 | CT_ITS ---
EXAMINATION: CT CHEST WITHOUT IV CONTRAST INDICATION: R91.8 - Other nonspecific abnormal finding of lung field COMPARISON: Comparison is made with the prior examination dated 08/13/2023. TECHNIQUE: Helical CT scan of the chest was performed without intravenous contrast. Coronal and sagittal reformatted images were generated and reviewed. This CT exam was performed with one or more of the following dose reduction techniques: automated exposure control, adjustment of the mA and/or kV according to patient size, use of iterative reconstruction technique. DLP: 133 mGy-cm CHEST: THYROID: Again seen is nodularity of the left thyroid lobe. LUNGS: There is slight scarring at the right lung apex. Again seen are tiny 2-3 mm nodules in the right upper lobe (series 4, images 42 and 45). No new pulmonary nodules are identified. MEDIASTINUM: There is no mediastinal lymphadenopathy. SEVERIANO: Evaluation of the hilar regions is limited by lack of intravenous contrast material. CARDIOVASCULATURE: The heart is normal in size. There is no pericardial effusion. The thoracic aorta is normal in caliber. DEGREE OF CORONARY CALCIFICATION: none PLEURA: There is no pleural effusion. No pneumothorax. MAIN AIRWAYS: The mainstem bronchi and proximal branches are patent. AXILLA: There is no axillary lymphadenopathy. BONES AND SOFT TISSUES: There is moderate dextroscoliosis. Spinal stabilization rods are seen in place. UPPER ABDOMEN: The visualized portions of the liver, spleen, and adrenals have an unremarkable unenhanced appearance. There is a 4.5 cm incompletely imaged rounded soft tissue structure in the right upper quadrant which may reflect thickening of the distal stomach or proximal duodenum. CT/CT chest wo IV con IMPRESSION: 1. Stable tiny right upper lobe nodules. 2. Nodularity of the left thyroid lobe. Thyroid ultrasound is recommended. 3. Incompletely imaged 4.5 cm rounded soft tissue structure in the right upper quadrant may reflect thickening of the distal stomach or proximal duodenum. CT of the abdomen and pelvis with oral and IV contrast is suggested for further evaluation. Electronically signed by: Palmer Herring MD 11/17/2024 01:27 PM EDT
--- OUTSIDE RECORDS SUMMARY | 2024-11-17 12:39 | XMS_ITS | Patient Health Record ---
Author Organization [facility] Address [address] [place] [address] Care Team Providers Care Certified Anesthesiologist Assistant Name Role Phone Eulogio Anthony MD Primary Care Provider Shruthi jairjack Eliza Fernandes Unavailable [phone] Allergies Allergen (clinical drug ingredient) Drug/Non Drug [...] 0.77 % 1 application Externally Twice a day; Duration: 30 days Active Night Splint AFO - L1930 as directed 09/09/2020 Not-Taking Elavil Not-Taking Cromolyn Sodium Acti ve Cequa 0.09 % 1 drop into affected eye Ophthalmic every 12 hrs Active Fluticasone Furoate 27.5 MCG/SPRAY 1 spray in each nostril Nasally Once a day; Duration: 30 day(s) PRN Active Soma 350 MG 1 tablet as needed Orally Four times a day PRN Active vicodin 1 tab Oral; Duration : 14 days PRN Active Compression Stockings 20-30mm Hg 1 pair wear daily; Duration: 30 days Active Social History Tobacco Use: [...] Problem Acquired hammer toe of right foot (2828498539559 105) Other hammer toe(s) (acquired), right foot (M20.41) Active confirmed Problem Acquired hammer toe of left foot (8357463081324 103) Other hammer toe(s) (acquired), left foot (M20.42) Active confirmed Problem Queenie-Danlos syndrome (838878360) 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 Plan Of Treatment Pending Test Test Name Order Date [id number] NAIL, 6 OR MORE 11/30/2019 [id number] NAIL, 6 OR MORE 03/04/2020 [id number] NAIL, 6 OR MORE 06/03/2020 [id number] NAIL, 6 OR MORE 09/09/2020 [id number] NAIL, 6 OR MORE 11/21/2020 [id number] NAIL, 6 OR MORE 01/23/2021 [id number] NAIL, 6 OR MORE 03/23/2022 [id number] NAIL, 6 OR MORE 05/25/2022 [id number] NAIL, 6 OR MORE 07/27/2022 [id number] NAIL, 6 OR MORE 10/01/2022 [id number] NAIL, 6 OR MORE 12/10/2022 [id number] NAIL, 6 OR MORE 01/01/2022 68847-Ofdvoezs Plate 02/02/2022 [id number] Plate 04/21/2021 49596-Ifanhblf Plate 01/01/2022 10217-Rpfszusv Plate 11/21/2020 Insurance Providers Payer Name Payer Address Payer Phone Subscriber Number Group Number Insured Name Patient Relationship to Insured Coverage Start Date Coverage End Date Medicare National [employer] [address] [facility] [place] [address] [id number] Kim Doan Self - patient is the insured [facility] [address] [place] [address] [id number] Kim Doan Self - patient is the [...]
--- OUTSIDE RECORDS SUMMARY | 2024-11-17 12:39 | XMS_ITS | Continuity of Care Document ---
Author Organization [facility] Address [address] [place] [address] Phone [phone] Social History Type Date Description Comments Sex Female Sex Unknown Medical Devices Description No Information Available Encounters Description No Information Available Assessments Description No Information Available Plan of Treatment No Information Available Functional Status Description No Information Available Mental Status Description No Information Available Referrals Description No Information Available
--- OUTSIDE RECORDS SUMMARY | 2024-11-17 12:39 | XMS_ITS | Encounter Summary ---
Author Organization [facility] Address [address] [place] [address] Phone Care Team Providers Care Insurance Case Manager Name Role Phone Eliza Auguste Primary Care Provider [phone] Eulogio Anthony MD Primary Care Provider + Encounter Details Date Type Department Care Team (Latest Contact Info) Description 08/22/2020 Ancillary Orders [facility] Rheumatology [address] [place] [address] Montana Schwarz MD [address] [place] [address] [email or web address] Primary osteoarthritis involving multiple joints Social History Tobacco Use Types Packs/Day Years Used Date Smoking Tobacco: Never Smokeless Tobacco: Never Alcohol Use Standard Drinks/Week Comments Never 0 (1 standard drink = 0.6 oz pur e alcohol) Comments No Sex and Gender Information Value Date Recorded Sex Assigned at Not on file Legal Sex Female 10:10 AM EST Gender Identity Not on file Sexual Orientation Not on file Occupation Industry Job Start Date Job End Date 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 [address] [email or web address] documented as of this encounter Results * XR HAND 3 OR MORE VIEWS (BILATERAL) (08/22/2020 4:00 PM EDT) Anatomical Region Laterality Modality Hand Left Computed Radiogr aphy 08/22/2020 4:06 PM EDT Impressions 08/22/2020 4:09 PM EDT Probable very early degenerative change DIP joint index finger. No erosive changes or other clear findings for erosive or inflammatory arthropathy. Narrative 08/22/2020 4:09 PM EDT AP, lateral, and ball-catcher's views of each hand and wrist obtained. No prior. Left hand: Minor demineralization. No focality. No erosions. Low normal joint spaces without sclerosis or spurring. No chondrocalcinosis. No prominent cystic changes. No bony lesions identified. Right hand: Symmetric mineralization. No chondrocalcinosis or erosion. No prominent joint space loss. No sclerosis or erosion. Minor dystrophic calcification dorsally at the DIP joint with what may be some very early spurring there. Procedure Note Dayday Tang MD - 08/22/2020 AP, lateral, and ball-catcher's views of each hand and wrist obtained. Noprior. Left hand: Minor demineralization. No focality. No erosions. Low normaljoint spaces without sclerosis or spurring. No chondrocalcinosis. Noprominent cystic changes. No bony lesions identified. Right hand: Symmetric mineralization. No chondrocalcinosis or erosion. Noprominent joint space loss. No sclerosis or erosion. Minor dystrophiccalcification dorsally at the DIP joint with what may be some very earlyspurring there. IMPRESSION: Probable very early degenerative change DIP joint index finger. No erosivechanges or other clear findings for erosive or inflammatory arthropathy. 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 It is not the complete legal health record.[facility]
--- OUTSIDE RECORDS SUMMARY | 2024-11-17 12:39 | XMS_ITS | Patient Health Record ---
Author Organization [facility] Address [address] [place] [address] Care Team Providers Care Restaurant Server Name Role Phone Manuel Hartley Primary Care [...] MEDICARE B [address] JORDAN ROBERTO [id number] Kim Doan Self - patient is the insured [employer] [address] [place], [place] [id number] Kim Doan Self - patient is the insured
--- OUTSIDE RECORDS SUMMARY | 2024-11-17 12:39 | XMS_ITS | Clinical Summary ---
Author Organization [facility] [address] [facility] Address [address] [place] [address] Phone Care Team Providers Care Boiler Service Technician Name Role Phone Eulogio Anthony MD Primary Care Provider [phone] Allergies Active Allergy Reactions Criticality Noted Date Comments Ampicillin 11/07/2020 Corticosteroids (Glucocorticoids) 11/07/2020 Doxycycline 11/07/2020 Other Reaction(s): Hives/Urticaria Erythromycin 11/07/2020 Methylprednisolone Acetate Depo-medrol Triamcinolone Acetonide 11/07/2020 Kenalog Medications ascorbic acid (VITAMIN C) 1,000 mg tablet Take 1,000 mg by mouth daily. Active carisoprodol (SOMA ORAL) Take by mouth at bedtime as needed. Active chlorpheniramine/ dextromethorp (MAXI-TUSS DM,CHLORPHENIRAMI NE, ORAL) CHLORPHENIRAMI NE-DM OR Take by mouth. Active coenzyme Q-10 100 mg capsule Take by mouth daily. Active FAMOTIDINE ORAL Take by mouth. Active MAGNESIUM ORAL Take by mouth. Active melatonin 3 mg tablet Take by mouth at bedtime. Active ZINC ORAL Take by mouth. Activ e polyethylene glycol 3350 (MIRALAX ORAL) Take by mouth. Active Lactobacillus acidophilus (PROBIOTIC ORAL) Take by mouth. Active THIAMINE HCL, VITAMIN B1, ORAL Thiamine HCl (THIAMINE OR) Take by mouth Active cyanocobalamin/fo lic ac/vit B6 (FOLGARD ORAL) 7 Active lidocaine (LIDODERM) 5 % patch 4 Active COQ10, LIPOSOMAL UBIQUINOL, ORAL Take 300 mg by mouth. 8 Active cromolyn (NASALCHROM) 5.2 mg/spray (4 %) nasal spray Administer into affected nostril(s). 3 Active ipratropium (ATROVENT) 21 mcg (0.03 %) nasal spray Inhale by mouth. 4 Active magnesium citrate 34 mg tablet,chewable Chew 300 mg. 3 Active melatonin 1 mg tablet, sublingual 7 Active quercetin 500 mg capsule Take 1 capsule by mouth. 0 Active azelastine (ASTELIN) 137 mcg (0.1 %) nasal spray 2 spray into both nostrils Active benzonatate (TESSALON) 200 mg capsule Active clobetasoL (TEMOVATE) 0.05 % cream APPLY TWICE DAILY TO RASH ON FINGERS UP TO 2 WEEKS/MONTH NEEDED. Active chlorpheniramine (CHLOR-TRIMETON) 4 mg tablet Take 1 tablet (4 mg total) by mouth once daily as needed. 5 Active guaiFENesin-codei ne (ROBITUSSIN-AC) 100-10 mg/5 mL syrup Take by mouth 3 times daily as needed. 1 Active diclofenac (VOLTAREN) 1 % topical gel Apply 2 g topically 4 times daily. 3 Active docusate sodium (Colace) 100 mg capsule Take 1 capsule (100 mg total) by mouth. 5 Active EPINEPHrine (EPIPEN) 0.3 mg/0.3 mL injection Inject 0.3 mL (0.3 mg total) under the skin once daily as needed. 2 Active furosemide (LASIX) 20 mg tablet Take 1 tablet (20 mg total) by mouth 1 (one) time each day. Active guaiFENesin (Mucinex) 600 mg 12 hr tablet Take 1 tablet (600 mg total) by mouth. 5 Active ibuprofen (Advil Migraine) 200 mg capsule Take 200 mg by mouth. 6 Active ketoconazole (NIZORAL) 2 % cream APPLY TWICE DAILY TO RASH UNTIL RESOLVED THEN 1 MORE WEEK 5 Active levalbuterol (XOPENEX) 1.25 mg/3 mL nebulizer solution 4 Active Xopenex HFA 45 mcg/actuation inhaler 7 Active methocarbamoL (ROBAXIN) 500 mg tablet TAKE 3 TABLETS BY MOUTH TWICE A DAY FOR 14 DAYS 5 Active mometasone HFA (ASMANEX HFA) 100 mcg/actuation HFA aerosol inhaler inhaler 4 Active nitrofurantoin, macrocrystal-mono hydrate, (MACROBID) 100 mg capsule TAKE 1 CAPSULE BY MOUTH 2 TIMES A DAY X 5 DAYS, WITH FOOD Active turmeric, bulk, (Curcumin) 95 % powder 1 Active cholecalciferol (VITAMIN D-3) 5,000 Units tablet Take by mouth. Activ e cycloSPORINE (RESTASIS) 0.05 % ophthalmic emulsion Administer 1 drop into both eyes 2 (two) times a day. Active HYDROcodone-aceta minophen (NORCO) 5-325 mg per tablet 5 Active LORazepam (ATIVAN) 0.5 mg tablet Take 1 tablet (0.5 mg total) by mouth once daily as needed. Max Daily Amount: 0.5 mg 3 Active plecanatide (Trulance) 3 mg tabletIndications :Irritable bowel syndrome with constipation Take 1 tablet (3 mg total) by mouth 1 (one) time each day. 90 each 2 5 06/15/19 26 Active plecanatide (Trulance) 3 mg tabletIndications :Irritable bowel syndrome with constipation Take 1 tablet (3 mg total) by mouth 1 (one) time each day. 90 each 1 5 03/17/20 25 Active Active Problems Problem Noted Date Diagnosed Date Left atrial enlargement 11/07/2020 Overview (05/15/2024): Last Assessment & Plan: Left atrial enlargement no evidence of significant mitral vegetation or pulmonary hypertension at this time discussed with her the finding the possible implications for future issues with Francie lou the need to contact us if [...] a Holter monitor to assess for ectopy Encounters Date Type Department Care Team Description 09/29/2024 4:05 PM EDT - 09/29/2024 11:59 PM EDT Hospital Encounter [facility] MRI [address] [place] [address] of the abdomen Discharge Disposition: Home or Self Care 09/26/2024 Telephone Gastroenterology - [address] [place] [address] [address] Joselyn Benjamin MD 09/22/2024 11:14 AM EDT - 09/22/2024 11:59 PM EDT Hospital Encounter [facility] CT Scan [address] [place] [address] Right upper quadrant abdominal pain Discharge Disposition: Home or Self Care 09/22/2024 Telephone Gastroenterology - [address] [place] [address] [address] Jeff Vargas MD 09/18/2024 Telephone Gastroenterology - [address] [facility] [address] [address] Joselyn Benjamin MD 09/13/2024 11:30 AM EDT Office Visit Gastroenterology - [address] [facility] [address] [address] Jeff Vargas MD Right upper quadrant abdominal pain (Primary Dx) from Last 3 Months Medical History Medical History Date Comments Allergic rhinitis DX:Allergic rh initis Asthma DX:Asthma Cervical disc disease DX:Cervica l disc disease Chronic tension headache 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 leopoldo tension headache Depression DX:Depression Dyspnea on [...] Information Value Date Recorded Sex Assigned at Female 09/14/2024 11:31 AM EDT Legal Sex Female 7:24 PM EST Gender Identity Female 09/14/2024 11:31 AM EDT Sexual Orientation Not on file Obstetrics History Last Filed Vital Signs Vital Sign Reading Time Taken Comments Blood Pressure - - Pulse - - Temperature - - Respiratory Rate - - Oxygen Saturation - - Inhaled Oxygen Concentration - - Weight 71.8 kg (158 lb 6.4 oz) 09/13/2024 11:25 AM EDT Height 170.2 cm (5' 7 ) 09/13/2024 11:25 AM EDT Body Mass Index 24.81 09/13/2024 11:25 AM EDT Plan of Treatment Upcoming Encounters Date Type Department Care Team (Late st Contact Info) Description 03/16/2025 11:00 AM EST Office Visit Gastroenterology - [address] [phone] Joselyn Benjamin MD [address] [place] [address] Health Maintenance Due Date Last Done Comments Breast Cancer Screening 1955 DTaP,Tdap,and Td Vaccines (1 - Tdap) 1973 Pneumococcal Vaccine: 50+ Ye ars (1 of 2 - PCV) 1973 Zoster Vaccines (1 of 2) 02/07/2004 RSV Immunization Adult Patie nts (1 - Risk 60-74 years 1-dose series) 2014 Cholesterol Screening (Lipid Panel) 04/04/2022 Falls Risk Assessment 04/04/2022 Hepatitis C Screening 04/04/2022 Medicare Annual Wellness Visit 04/04/2022 Osteoporosis Screening (Bone Density Screening) 04/04/2022 Social Influencers of Health Screening 04/04/2022 Depression Screening 08/20/2023 08/19/2022 COVID-19 Vaccine (1 - 2023-2 5 season) 2024 Influenza Vaccine (#1) 2025 Colorectal Cancer Screening: FIT-DNA (Cologuard) 08/08/2027 08/07/2024 HIB Vaccines Aged Out No longer eligi [...] on patient's age to complete this topic Procedures Procedure Name Priority Date/Time Associated Diagnosis Comments MR ABDOMEN WO CONTRAST Routine 09/29/2024 4:[address] of the abdomen CT ABDOMEN PELVIS WO CONTRAST Routine 09/22/2024 11:46 AM EDT Right upper quadrant abdominal pain from Last 3 Months Results * MR Abdomen wo Contrast (09/29/2024 4:50 PM EDT) Anatomical Region Laterality Modality Body Magnetic Resonan ce 09/30/2024 12:3 8 AM EDT Impressions 09/30/2024 12:44 AM EDT No suspicious pancreatic lesion is evident on this noncontrast MRI. No suspicious cystic lesion. The above report may contain errors in syntax, word selection, grammar and/or spelling related to the use of voice recognition software. -------- FINAL REPORT -------- Dictated By: Vesta Mackay Dictated Date: 09/30/2024 00:38 ET Assigned Physician: Vesta Mackay Reviewed and Electronically Signed By: Vesta Mackay Signed Date: 09/30/2024 00:44 ET Workstation ID: [id number] Transcribed By: Self Edit Transcribed Date: 09/30/2024 00:38 ET Narrative 09/30/2024 12:44 AM EDT MR ABDOMEN WO CONTRAST INDICATION: Pancreatic cyst/pseudocyst CT with ductalectasia. TECHNIQUE: Coronal T2 single shot fast spin echo through the entire abdomen and pelvis; Axial T2 SSFSE, axial T1, axial T2 in and out of phase FSPGR, and axial T1 LAVA 3-D pre-contrast images of the abdomen are provided. CONTRAST: None. COMPARISON: CT abdomen and pelvis 09/22/2024 FINDINGS: LUNG BASES: Clear. LIVER: Few scattered tiny liver cysts. No suspicious lesion. SPLEEN: Unremarkable. PANCREAS: There is no suspicious pancreatic lesion. There is tortuosity of the pancreatic duct which accounts for the appearance seen on the recent CT scan. GALLBLADDER: Unremarkable. ADRENALS: Unremarkable. KIDNEYS: Unremarkable size and shape bilaterally, without evidence of hydronephrosis. GASTROINTESTINAL TRACT: Visualized portions of the stomach, small and large bowel are normal. The appendix is seen and is normal. Lymph Nodes: There is no evidence of intraperitoneal, retroperitoneal, or pelvic adenopathy or mass. Bones and soft tissues: Scoliosis. Spinal fusion willis causing blooming artifact. BLOOD VESSELS: The visualized vasculature is grossly unremarkable. Procedure Note Vesta Mackay MD - 09/30/2024 MR ABDOMEN WO CONTRAST INDICATION: Pancreatic cyst/pseudocyst CT with ductalectasia. TECHNIQUE: Coronal T2 single shot fast spin echo through the entireabdomen and pelvis; Axial T2 SSFSE, axial T1, axial T2 in and out of phaseFSPGR, and axial T1 LAVA 3-D pre-contrast images of the abdomen areprovided. CONTRAST: None. COMPARISON: CT abdomen and pelvis 09/22/2024 FINDINGS: LUNG BASES: Clear. LIVER: Few scattered tiny liver cysts. No suspicious lesion. SPLEEN: Unremarkable. PANCREAS: There is no suspicious pancreatic lesion. There is tortuosityof the pancreatic duct which accounts for the appearance seen on therecent CT scan. GALLBLADDER: Unremarkable. ADRENALS: Unremarkable. KIDNEYS: Unremarkable size and shape bilaterally, without evidence ofhydronephrosis. GASTROINTESTINAL TRACT: Visualized portions of the stomach, small andlarge bowel are normal. The appendix is seen and is normal. Lymph Nodes: There is no evidence of intraperitoneal, retroperitoneal, orpelvic adenopathy or mass. Bones and soft tissues: Scoliosis. Spinal fusion willis causing bloomingartifact. BLOOD VESSELS: The visualized vasculature is grossly unremarkable. IMPRESSION: No suspicious pancreatic lesion is evident on this noncontrast MRI. Nosuspicious cystic lesion. The above report may contain errors in syntax, word selection, grammarand/or spelling related to the use of voice recognition software. -------- FINAL REPORT -------- Dictated By: Vesta Mackay Dictated Date: 09/30/2024 00:38 ET Assigned Physician: Vesta Mackay Reviewed and Electronically Signed By: Vesta Mackay Signed Date: 09/30/2024 00:44 ET Workstation ID: [id number] Transcribed By: Self Edit Transcribed Date: 09/30/2024 00:38 ET Jeff Vargas MD IM MRI PROCEDURES Final Result * CT Abdomen Pelvis wo Contrast (09/22/2024 11:46 AM EDT) Anatomical Region Laterality Modality Body Computed Tomogra phy 09/22/2024 1:13 PM EDT Impressions 09/22/2024 1:[address] Negative noncontrast CT. -------- FINAL REPORT -------- Dictated By: Vesta Mackay Dictated Date: 09/22/2024 13:13 ET Assigned Physician: Vesta Mackay Reviewed and Electronically Signed By: Vesta Mackay Signed Date: 09/22/2024 13:16 ET Workstation ID: [id number] Transcribed By: Self Edit Transcribed Date: 09/22/2024 13:13 ET Narrative 09/22/2024 1:16 PM EDT PROCEDURE: CT Abdomen and Pelvis without contrast INDICATION: Abdominal distension Epigastric pain ruq and rlq pain TECHNIQUE: CT of the abdomen and pelvis without contrast. Multiplanar reformats. The examination was performed utilizing dose reduction techniques. DLP: 773 mGy/cm COMPARISON: 03/21/2021 FINDINGS: LOWER THORAX: Lung bases are clear. HEPATOBILIARY: No focal liver lesions. No cholelithiasis or biliary duct dilatation. SPLEEN: No splenomegaly. PANCREAS: No focal mass or ductal dilatation. There is potential ductal ectasia near the confluence of the dorsal and ventral pancreatic ducts. ADRENALS: No nodules. KIDNEYS/URETERS: No hydronephrosis, stones, or solid mass. PELVIC ORGANS/BLADDER: Unremarkable. PERITONEUM / RETROPERITONEUM: No ascites or free air. No retroperitoneal lymphadenopathy. VESSELS: Scattered atherosclerotic calcifications throughout the aorta and its major branches. No aneurysm. GI TRACT: Prominent stool burden throughout the colon. Normal caliber appendix. BONES AND SOFT TISSUES: Scoliosis with partially visualized spinal fusion willis. No acute osseous abnormality. Soft tissues are unremarkable. Procedure Note Vesta Mackay MD - 09/22/2024 PROCEDURE: CT Abdomen and Pelvis without contrast INDICATION: Abdominal distension Epigastric pain ruq and rlq pain TECHNIQUE: CT of the abdomen and pelvis without contrast. Multiplanarreformats. The examination was performed utilizing dose reductiontechniques. DLP: 773 mGy/cm COMPARISON: 03/21/2021 FINDINGS: LOWER THORAX: Lung bases are clear. HEPATOBILIARY: No focal liver lesions. No cholelithiasis or biliary ductdilatation. SPLEEN: No splenomegaly. PANCREAS: No focal mass or ductal dilatation. There is potential ductalectasia near the confluence of the dorsal and ventral pancreatic ducts. ADRENALS: No nodules. KIDNEYS/URETERS: No hydronephrosis, stones, or solid mass. PELVIC ORGANS/BLADDER: Unremarkable. PERITONEUM / RETROPERITONEUM: No ascites or free air. No retroperitoneallymphadenopathy. VESSELS: Scattered atherosclerotic calcifications throughout the aorta andits major branches. No aneurysm. GI TRACT: Prominent stool burden throughout the colon. Normal caliberappendix. BONES AND SOFT TISSUES: Scoliosis with partially visualized spinal fusionrod. No acute osseous abnormality. Soft tissues are unremarkable. IMPRESSION: Negative noncontrast CT. -------- FINAL REPORT -------- Dictated By: Vesta Mackay Dictated Date: 09/22/2024 13:13 ET Assigned Physician: Vesta Mackay Reviewed and Electronically Signed By: Vesta Mackay Signed Date: 09/22/2024 13:16 ET Workstation ID: [id number] Transcribed By: Self Edit Transcribed Date: 09/22/2024 13:13 ET Jeff Vargas MD IMG CT PROCEDURES Final Result from Last [address] [facility] Care Teams Boiler Service Technician Relationship Specialty Start Date End Date Eulogio Anthony MD [address] [place] [address] [address] [place] [address] PCP - General 09/25/22
--- OUTSIDE RECORDS SUMMARY | 2024-11-17 12:39 | XMS_ITS | Data Portability ---
Author Organization MD - [facility], Allergy Address [address] [place] [address] Care Team Providers Care Installations Inspector Name Role Phone RAFFI IGOR Primary Care Provider [phone] Assessment Encounter Date Assessment Date Assessment LastModified by Organization Details LastModified Time 03/16/2024 03/16/2024 Impacted cerumen was debrided bilaterally today. Ear examination today is otherwise normal with a well aerated middle ear space. Reassurance was provided there is no middle ear fluid. She will follow up with SUYAPA Alejandro, in four months in our [place] office. [email or web address] Not available 03/16/2024 15:44:00 07/12/2024 07/12/2024 69-year-old female presents for cerumen removal. Cerumen impaction removed bilaterally. Bilateral TMs are intact with well aerated middle ear spaces. She will follow-up in 3-4 months for routine debridement, or sooner with any concerns. [email or web address] Not available 07/12/2024 11:51:22 10/23/2024 10/23/2024 69-year-old female presents for cerumen removal. Cerumen impaction removed bilaterally. Bilateral TMs are intact with well aerated middle ear spaces. She will follow-up in 3 months for routine debridement, or sooner with any concerns. [email or web address] Not available 10/23/2024 11:40:37 Plan of Treatment Reminders Order Date Submit Date Provider Last Modified By Organization Details Last Modified Time Details Appointments Establish ed 15 2024 01:00P M BAHMAN MONTES DE OCA PA-C Not available Not available Not available Lab None recorded. Referral None recorded. Procedures None recorded. Surgeries None recorded. Imaging None recorded. Medication Orders None recorded. Patient TargetsNo targets recorded. Patient InstructionsNo instructions recorded. Reason for Referral None Reported. Problems Name Problem SNOMED Code Status Onset Date Resolution Date Notes Provider Name and Address Organization Details Recorded Time Asymmetri isela sensorine ural hearing loss 418581176 Active 2013 Hearing loss: Sensorine ural hearing loss, asymmetri isela; Note: Date Diagnosed : 4 4:01 PM (389.16) Not Available [facility] 4 02:16:00 Subjectiv e tinnitus 45742938 Active 2013 Subjectiv e tinnitus; Note: Date Diagnosed : 4 9:15 AM (388.31) Not Available [facility] 4 02:15:29 Hyperacus is 75319166 Active 2013 Hyperacus is; Note: Date Diagnosed : 4 9:16 AM (388.42) Not Available [facility] 4 02:16:09 Jaw pain 769797443 Active 2013 Periauric ular pain of TMJ origin; Note: Date Diagnosed : 4 9:14 AM (784.92) Not Available [facility] 4 02:16:13 Patulous eustachia n tube 03193447 Active 2013 Patulous Eustachia n tube; Note: Date Diagnosed : 4 9:15 AM (381.7) Not Available [facility] 4 02:15:32 Impacted cerumen 05304030 Active 2014 Impacted cerumen; CMS Risk: low [...] ; Start Date : 5 Not Available [facility] 4 02:16:26 Non-toxic nodular goiter 293203526 Active 2015 Unspecifi ed multinodu lar goiter; Note: Date Diagnosed : 07/09/2015 5:00 PM (241.9) Not Available [facility] 4 02:16:37 Simple goiter 915510611 Active 2015 Goiter NOS; Note: Date Diagnosed : 07/09/2015 5:02 PM (E04.9) Not Available [facility] 4 02:16:34 Respirato ry finding 473402335 Active 2015 Feeling of foreign body in throat; Note: Date Diagnosed : 08/14/2015 2:31 PM (R09.89) Not Available [facility] 4 02:15:56 Cardiovas cular finding 386772459 Active 2015 Feeling of foreign body in throat; Note: Date Diagnosed : 08/14/2015 2:31 PM (R09.89) Not Available [facility] 4 02:15:56 Gastroeso phageal reflux disease without esophagit is 910033041 Active 2015 Gastro-es ophageal reflux disease without esophagit is; Note: Date Diagnosed : 08/14/2015 2:22 PM (K21.9) Not Available [facility] 4 02:16:30 Acute sinusitis 97423372 Active 2015 Other acute sinusitis ; Note: Date Diagnosed : 6 2:00 PM (J01.80) Not Available [facility] 4 02:15:23 Chronic rhinitis 05825755 Active 2016 Chronic rhinitis; Note: Date Diagnosed : 05/07/2016 1:15 PM (J31.0) Not Available [facility] 4 02:16:20 Temporoma ndibular joint disorder 31096555 Active 2016 Other specified disorders of temporoma ndibular joint; Note: Date Diagnosed : 08/03/2016 11:56 AM (M26.69) Not Available [facility] 4 02:15:59 Impacted cerumen of bilateral ears 09224009532 62786 Active 2017 Impacted cerumen, bilateral Impacted cerumen, bilateral ; Note: Date Diagnosed : 11/15/2015 2:00 PM (H61.23) ; Start Date : 6 Impacte d cerumen, bilateral ; Note: Date Diagnosed : 5 12:07 PM (H61.23) ; Start Date : 5 Not Available [facility] 4 02:16:18 Atypical facial pain 18516102 Active 2017 Atypical facial pain; Note: Changed from R51 to G50.1 (08/05/2021 3:05 PM) , Date Diagnosed : 11/04/2017 2:34 PM (R51) Not Available [facility] 4 02:16:12 Bilateral temporoma ndibular joint pain 97112777042 337847 Active 2017 Arthralgi a of bilateral temporoma ndibular joint; Note: Date Diagnosed : 8 3:25 PM (M26.623) Not Available [facility] 4 02:15:22 Dizziness and giddiness 490449244 Active 2018 Dizziness and giddiness ; Note: Date Diagnosed : 10/31/2018 2:32 PM (R42) Light-h eadedness ; Note: Date Diagnosed : 8 3:25 PM (R42) ; Start Date : 8 Dizzine ss and giddiness ; Note: Date Diagnosed : 02/03/2018 1:18 PM (R42) ; Start Date : 8 Not Available [facility] 4 02:15:28 Bilateral tinnitus 84175217027 02 Active 2018 Tinnitus, bilateral ; Note: Date Diagnosed : 10/31/2018 2:32 PM (H93.13) Not Available [facility] 4 02:15:57 Anxiety disorder 480708218 Active 2018 Anxiety disorder, unspecifi ed; Note: Date Diagnosed : 11/21/2018 6:32 PM (F41.9) Not Available [facility] 4 02:15:43 Refractor y migraine 394172551 Active 2018 Other migraine, intractab le, without status migrainos us; Note: Date Diagnosed : 11/21/2018 5:12 PM (G43.819) Not Available [facility] 4 02:16:09 Sensorine ural hearing loss 72057909 Active 2019 Sensorine ural hearing loss, unilatera l, left ear, with unrestric shanda hearing on the contralat eral side; Note: Date Diagnosed : 01/12/2020 4:33 PM (H90.42) Not Available [facility] 4 02:15:39 Impacted cerumen in right ear 45512526566 Active 2022 Impacted cerumen, right ear; Note: Date Diagnosed : 09/16/2022 4:00 PM (H61.21) Not Available [facility] 4 02:15:39 Disorder of right Eustachia n tube 31428524757 79601 Active 2022 Other specified disorders of Eustachia n tube, right ear; Note: Date Diagnosed : 02/05/2023 5:03 PM (H69.81) Not Available [facility] 4 02:15:20 Otalgia of right ear 6557213200 Active 2022 Otalgia, right ear; Note: Date Diagnosed : 02/05/2023 3:27 PM (H92.01) Otalgia , right ear; Note: Date Diagnosed : 8 1:33 PM (H92.01) ; Start Date : 8 Not Available [facility] 4 02:16:16 Pain of right temporoma ndibular joint 12698267493 550681 Active 2022 Arthralgi a of right temporoma ndibular joint; Note: Date Diagnosed : 02/05/2023 5:03 PM (M26.621) Not Available [facility] 4 02:16:01 Abnormal auditory perceptio n 83004355 Active 2022 Other abnormal auditory perceptio ns, bilateral ; Note: Date Diagnosed : 02/05/2023 4:09 PM (H93.293) Other abnormal auditory perceptio ns, bilateral ; Note: Date Diagnosed : 02/01/2017 1:28 PM (H93.293) ; Start Date : 7 Not Available [facility] 4 02:15:55 Problem Notes None recorded. Procedures Surgical History Date Name Laterality Status Provider Name and Address Organization Details Recorded Time 5 Cerumen removal without microscope bilat completed BAHMAN MONTES DE OCA PA-C [address] [place] [address],[address], [address], [facility] 10/23/2024 11:24:52 5 Cerumen removal without microscope bilat completed BAHMAN MONTES DE OCA PA-C [address] [place] [address],[address], [address], [facility] 07/12/2024 11:50:14 Imaging Results None recorded. Procedure Notes None recorded. Medical Equipment None Reported. Allergies Allergen ID Allergen Name Allergen Category Reaction Reaction Severity Criticality Documentation Date Start Date Code Code System Note Provider Name and Address Organization Details Recorded Time 27004 doxycycli ne hyclate medicatio n angioedem a Not available Not available 09/14/2023 56819 RxNorm React ion: swell ing of tongu e or mouth ;; Not Available [facility] 4 00:52:26 74649 Depo-Medr ol medicatio n other Not available Not available 09/14/2023 19722 RxNorm React ion: unkno wn, unspe cifie d;; Not Available [facility] 4 00:52:34 Medications Name Sig Start Date Stop Date Status Note LastModified by Organization Details LastModified Time Singulair 10 mg tablet Take 1 tablet by mouth 05/07 completed Medicati on ID: [id number] B rand Name: Robyn julio Send Method: E-Prescr ibed Sub s Allowed: subs OK Speci al Instruct ion: Take 1 tablet by mouth every day in the evening Medicati onGeneri cName: Robyn julio Not Available Not Available Not Available carisopro dol 350 mg tablet active Not Available Not Available No t Available cyclobenz aprine 10 mg tablet 02/21 completed Medicati on ID: [id number] Du ration Value: 30 Reason: () Brand Name: cycloben zaprine Send Method: E-Prescr ibed Sub s Allowed: subs GISELLE Speci al Instruct ion: TAKE 3 TABS EVERY NIGHT Me dication GenericN micheline: cycloben zaprine Not Available Not Available Not Available Miralax 17 gram/dose oral powder 2016 active Medicati on ID: [id number] B rand Name: Miralax Send Method: E-Prescr ibed Sub s Allowed: subs OK Medic ationGen ericName : Miralax Not Available Not Available Not Available methocarb talib 500 mg tablet TAKE 3 TABLET BY MOUTH 2 TIMES A DAY NEEDED SPASM active Not Available Not Available No t Available metformin 500 mg tablet active Not Available Not Available Not Available clonidine HCl 0.1 mg tablet 03/14 completed Medicati on ID: [id number] D uration Value: 14 Brand Name: clonidin e HCl Send Method: E-Prescr ibed Sub s Allowed: subs GISELLE Pabloi al Instruct ion: TAKE 1 TABLET BY MOUTH 3 TIMES A DAY NEEDED FOR ANXIETY Medicati onGeneri cName: clonidin e HCl Not Available Not Available Not Available prednison e 10 mg tablet active Not Available Not Available Not Available benzonata te 200 mg capsule active Not Available Not Available Not Available valacyclo vir 1 gram tablet 02/21 completed Medicati on ID: [id number] Du ration Value: 7 Reason: () Brand Name: valacycl ovir Sen d Method: E-Prescr ibed Sub s Allowed: subs GISELLE Pabloi al Instruct ion: TAKE 1 TABLET BY MOUTH EVERY 8 HOURS Me dication GenericN micheline: valacycl ovir Not Available Not Available Not Available amoxicill in 600 mg-potass ium clavulana te 42.9 mg/5 mL oral suspensio n 03/14 completed Medicati on ID: [id number] D uration Value: 10 Brand Name: amoxicil radha-pot clavulan ate Send Method: E-Prescr ibed Sub s Allowed: subs OK Speci al Instruct ion: TAKE 7ML BY MOUTH EVERY 12 HOURS Me dication GenericN micheline: amoxicil radha-pot clavulan ate Not Available Not Available Not Available hydrocodo ne 5 mg-acetam inophen 325 mg tablet TAKE 1 TABLET BY MOUTH 2 TIMES A DAY NEEDED .PAIN , SEVERE active Not Available Not Available No t Available sodium chloride 3 % for nebulizat ion 4 ML INHALED 2 TIMES A DAY FOR 30 DAYS active Not Available Not Available No t Available clonazepa m 0.5 mg tablet 03/14 completed Medicati on ID: [id number] D uration Value: 30 Brand Name: clonazep [...] mg tablet 02/21 completed Medicati on ID: [id number] Du ration Value: 30 Reason: () Brand [...] mg tablet 06/15 completed Medicati on ID: [id number] Du ration Value: 30 Reason: () Brand Name: spironol actone S end Method: E-Prescr ibed Sub s Allowed: subs OK Medic ationGen ericName : spironol actone Not Available Not Available Not Available amoxicill in 500 mg tablet 1 tablet by mouth 11/04 completed Medicati on ID: [id number] Geena graham By Name: AGNES Nicole nd Name: amoxicil [...] mg tablet 02/21 completed Medicati on ID: [id number] Du ration Value: 7 Reason: () Brand Name: amoxicil radha Send Method: E-Prescr ibed Sub s Allowed: subs OK Speci al Instruct ion: TAKE 1 TABLET TWICE A DAY Medi cationGe nericNam e: amoxicil radha Not Available Not Available Not Available famotidin e 20 mg tablet 1 tablet by mouth 07/12 completed Medicati on ID: [id number] Geena graham By Name: AGNES Nicole nd Name: famotidi ne Send Method: E-Prescr ibed Sub s Allowed: subs OK Medic ationGen ericName : famotidi ne Not Available Not Available Not Available lorazepam 0.5 mg tablet 2017 active Medicati on ID: [id number] D uration Value: 30 Brand Name: lorazepa m Send Method: E-Prescr ibed Sub s Allowed: subs OK Speci al Instruct ion: TAKE 1 TABLET BY MOUTH THREE TIMES A DAY NEEDED M edicatio nGeneric Name: lorazepa m Not Available Not Available Not Available amitripty line 10 mg tablet 03/14 completed Medicati on ID: [id number] Du ration Value: 90 Brand Name: amitript yline Se nd Method: E-Prescr ibed Sub s Allowed: subs OK Medic ationGen ericName : amitript yline Not Available Not Available Not Available meclizine 25 mg tablet 03/14 completed Medicati on ID: [id number] D uration Value: 30 Brand Name: meclizin e Send Method: E-Prescr ibed Sub s Allowed: subs OK Medic ationGen ericName : meclizin e Not Available Not Available Not Available benzonata te 100 mg capsule active Not Available Not Available Not Available doxycycli ne monohydra te 100 mg capsule 02/21 completed Medicati on ID: [id number] Du ration Value: 30 Reason: () Brand Name: doxycycl ine monohydr ate Send Method: E-Prescr ibed Sub s Allowed: subs OK Medic ationGen ericName : doxycycl ine monohydr ate Not Available Not Available Not Available Robaxin-7 50 750 mg tablet 11/04 completed Medicati on ID: [id number] B rand Name: Robaxin- 750 Send Method: [...] active Not Available Not Available Not Available lorazepam 1 mg tablet TAKE 1 TABLET BY MOUTH EVERY DAY NEEDED FOR ANXIETY active Not Available Not Available No t Available azelastin e 137 mcg (0.1 %) [...] ne propionat e 50 mcg/actua tion nasal spray,[facility] 2014 active Medicati on ID: [id number] Du ration Value: 30 Brand Name: fluticas one Send Method: E-Prescr ibed Sub s Allowed: subs OK Speci al Instruct ion: USE 1 SPRAY IN EACH NOSTRIL TWICE A DAY Medi cationGe nericNam e: fluticas one Not Available Not Available Not Available doxycycli ne hyclate 100 mg tablet 1 tablet by mouth 02/12 completed Medicati on ID: [id number] D uration Value: 10 Prescri bed By [...] Not Available No t Available cyclobenz aprine 5 mg tablet TAKE 1 TABLET BY MOUTH EVERY DAY AT BEDTIME NEEDED active Not Available Not Available No t [...] Available Probiotic 2016 active Medicati on ID: [id number] B rand Name: probioti c Send Method: E-Prescr ibed Sub s Allowed: subs OK Medic ationGen ericName : probioti c Not Available Not Available Not Available Folgard 2,000 unit-800 mcg-0.32 mg tablet 2016 active Medicati on ID: [id number] B rand Name: Folgard Send Method: E-Prescr ibed Sub s Allowed: subs OK Medic ationGen ericName : Folgard Not Available Not Available Not Available melatonin 1 mg sublingua l tablet 2016 active Medicati on ID: [id number] B rand Name: melatoni n Send Method: E-Prescr ibed Sub s Allowed: subs OK Medic ationGen ericName : melatoni n Not Available Not Available Not Available Asmanex HFA 100 mcg/actua tion aerosol inhaler 2 PUFF INHALED 2 TIMES A DAY FOR 30 DAYS active Not Available Not Available No t Available Vitals Date Recorded Body height Body mass index (BMI) Body weight Provider Name and Address Organization Details Last Updated DateTime 03/16/2024 170.18 cm 23.5 kg/m2 26325.86 g Papa Naik [place] - [facility] 03/16/2024 15:26:57 Social History None recorded. Functional Status None recorded. Mental Status None recorded. Family History Nothing Reported. Medical History Condition Response Allergies/Hayfever Y Heart Problems N Anxiety Y Tonsil Infections N Emphysema N Migraines N Thyroid Problems Y Glaucoma N Depression N COPD N Developmental Delay N Nasal or Sinus Problems Y Anemia Y Immune System Disorder Y Anesthesia Complications N Heart Attack ([place]) N Other Skin Condition N Diabetes N Rhinitis Y Bleeding Disorder N Food Allergy Y Arthritis Y Hearing Loss N Hyperlipidemia N Cancer N Stroke N Dementia N Nasal polyps N Asthma Y Sleep Disorder Y GERD/Reflux Y High Cholesterol N Liver Disease Y Headaches Y Fibromyalgia Y Hypertension N Speech Delay N Kidney Disease N Gynecological HistoryNo gynecological history recorded. Obstetrics History GPAL:G 0 P 0 0 0 0 Past Encounters Encounter ID Performer Location Encounter Start Date Encounter Closed Date Diagnosis/Indication Diagnosis SNOMED-CT Code Diagnosis ICD10 Code Diagnosis Note [id number] YVETTE JOYNER PA-C [facility] [address] [place] [address] 03/16/2024 15:10:42 03/16/2024 15:39:23 Impacted cerumen of bilateral ears 2726928434 774162 H61.23 [id number] BAHMAN MONTES DE OCA PA-C [facility] [address] [address] 07/12/2024 11:25:26 07/12/2024 11:48:55 Impacted cerumen of bilateral ears 6306433472 818686 H61.23 [id number] BAHMAN MONTES DE OCA PA-C [facility] [address] [address] 10/23/2024 11:22:58 10/23/2024 11:49:08 Impacted cerumen of bilateral ears 9629561666 195728 H61.23 Health Concerns Section Related Observation LastModified by Organization Detai ls LastModified Time None Recorded Concern Status LastModified by Organization Details LastModified Time None Recorded Advance Directives Directive None Recorded Payers Insurance Date Sequence Insurance Name Policy Number Policy Booker Covered Member ID Booker Member ID Guarantor Name 10/23/2024 1 MEDICARE B-MD: [employer] Kim Doan [id number] Kim Doan 10/23/2024 2 FOR LIFE ( - MEDICARE SUPPLEMENT) Kim Doan [id number] Kim R Doan Notes Date Note Type Note Provider [...] be related to TMJ. SUMA LUQUE MD [facility],[address], [address], [place] - [facility] 03/16/2024 17:28:58 07/12/2024 text/html 69 year old female presents for cerumen removal. No concerns today. Long standing history of right sided facial pressure that has been evaluated in our office previously, and felt to be related to TMJ. JUAN PIÑA MD [facility],[address], [address], [place] - [facility] 07/12/2024 17:26:33 10/23/2024 text/html 69 year old female presents for cerumen removal. No concerns today. Long standing history of right sided facial pressure that has been evaluated in our office previously, and felt to be related to TMJ. JUAN PIÑA MD [facility],[address], [address], [place] - [facility] 10/25/2024 08:27:59 OBGyn Episode No OBEpisode recorded.
--- NOTE | 2024-11-17 12:57 | ECG_ITS ---
Test Reason : COPD Blood Pressure : */* mmHG Vent. Rate : 79 BPM Atrial Rate : 79 BPM P-R Int : 144 ms QRS Dur : 90 ms QT Int : 368 ms P-R-T Axes : 73 30 33 degrees QTcB Int : 421 ms Normal sinus rhythm Possible Left atrial enlargement Borderline ECG When compared with ECG of 11-Dec-2018 18:15, No significant change was found Referred By: Nik Enrique Electronically Signed By: MONISHA SULLIVAN
== END 2024-11-17 12:38 | disposition home or self-care (01) ==
LOC: HO.CT 12:37
PROVIDERS: PCP Family Medicine; Visit Provider Hospitalist
DX: R91.8 Other nonspecific abnormal finding of lung field (principal); M41.9 Scoliosis, unspecified; R05.3 Chronic cough; J44.9 Chronic obstructive pulmonary disease, unspecified
CPT/HCPCS: 71250; 93005

== ENCOUNTER → 2024-11-17 12:40 | Outpatient (BNV) | payer MEDICARE, OTHER, SELFPAY | PROVIDERS: PCP Family Medicine; Visit Provider Radiology Diagnostic Radiology | DX: E04.1 Nontoxic single thyroid nodule (principal) | CPT/HCPCS: 71250 ==

== ENCOUNTER → 2024-11-17 12:57 | Outpatient (BNV) | payer MEDICARE, OTHER, SELFPAY | PROVIDERS: PCP Family Medicine; Visit Provider Internal Medicine | DX: J44.9 Chronic obstructive pulmonary disease, unspecified (principal) | CPT/HCPCS: 93010 ==

== ENCOUNTER 2025-03-01 13:25 | Outpatient (AMB) | payer MEDICARE, OTHER, SELFPAY ==
[2025-03-01 13:27] VITALS: BP 116/58; PULSE 81; O2SAT 97; BMI 24.3
--- NOTE | 2025-03-01 13:27 | MHC.OFFVIS ---
Vital Signs 03/01/25 13:27 Height 5 ft 7 in Weight 155 lb 6.814 oz BMI 24.3 BP 116/58 L Blood Pressure Location Lt brachial Position Sitting Pulse 81 Pulse Source Pulse Oximeter Pulse Oximetry (%) 97 Oxygen Delivery Method Room Air Intake Visit Reasons: CT scan F/U Counseling Specialist Required: No Accompanied by: Self / Same As Patient Allergies doxycycline (DOXYCYCLINE) Allergy (Severe, Verified 03/01/25 13:31) RASH methylprednisolone (From DEPO-MEDROL) Allergy (Severe, Verified 03/01/25 13:31) ANXIETY triamcinolone (From KENALOG) Allergy (Severe, Verified 03/01/25 13:31) ANXIETY HPI Comments Details: Patient is a 70-year-old woman with a known history of significant scoliosis status post daniel placement. With significant back pain and worsening shortness of breath. The patient also has a history of significant allergies and asthma. She has been complaining worsening shortness of breath moderate severity. Sometimes she is hard for her to take a deep breath in. She feels is mainly due to the worsening scoliosis. She also complains of significant pain. She has chronic pain due to her significant scoliosis and surgical interventions. She is currently working closely with orthopedic surgery. She has had chest x-rays done in the past which were personally by me demonstrating the significant restriction due to her severe scoliosis. The patient also has significant he had daytime drowsiness. Her EPWORTH score is 10/24. She needs to have a sleep study at this time. 11/25/2020 patient is here for sick visit. The patient has been developing worsening cough shortness of breath for last several days. She denies any sick contacts. The patient not been vaccinated for COVID-19 as of yet. Based on worsening symptoms she should be tested. The meantime she is having hard expectorating. We did try to give a treatment with saline and Xopenex in the office see it would help expectorate better. She did feel some relief. Therefore will try hypertonic saline that she use home. Will also request a flutter valve that she can use after her nebulized treatment for her chest physical therapy. The patient significant scoliosis. We did repeat her pulmonary function studies recently and they did demonstrate a restrictive disease in this case related to significant scoliosis. We did compare these pulmonary function studies to her previous ones several years back they did demonstrate significant worsening of the restriction and now also with evidence diffusion impairment due to her limited expansion her lungs. Based on her pulmonary function studies, her worsening respiratory symptoms are largely due to her severe thoracic scoliosis with her failed Silva Daniel surgery. in order to improve her respiratory capacity the patient has optimized with nebulized therapy and chest physical therapy and this has been partially helpful. she does have an older lumbar brace which she does not provide her with enough support. More recently the patient did try the [employer] Peak Scoliosis Bracing system which significantly improved her respiratory symptoms. I do believe that the combination of the new TLSO brace and the respiratory therapy that the patient would have significant improvement in her pulmonary capacity and quality of life. We are still waiting for the results of her sleep study to also further address that question. 12/16/2020 the patient is here for a pulmonary follow-up visit. Since we last spoke the patient did get her brace approved and she has been very happy with the fact that has been helping. In the meantime she continues to have daytime drowsiness and significant snoring. Her [place] score is indeed elevated 12/24. She did undergo a home sleep study and her study demonstrated significant snoring. However, her AHI was approximately 1.6 events per hour mainly with hypopneas. I did explain to the patient that at this point she does not qualify for CPAP. If however the patient continues to be symptomatic then we can consider an inpatient or in-lab study which she will provide more accurate information. In the meantime will try to work on her sleep. She does have significant insomnia. She has tried multiple medications in the past. She is able to fall asleep but a lot of times a staying asleep. She is willing to try trazodone at this time. In the meantime the patient was able to get her nebulizer from her [employer]. However, she has not gotten her Acapella valve. We did make a phone call to assist her to facilitate her chest physical therapy which will be helpful improving her respiratory status. 11/19/2021 the patient is here for a pulmonary follow-up visit. Since we last spoke she is complaining of worsening headaches. She also has daytime drowsiness with an [place] score of 12/24. The patient did undergo an overnight oximetry demonstrating hypoxia, spending more than 6 minutes below 88%. The patient has underlying restrictive lung disease due to her scoliosis. This is likely contributing to her degree of hypoxia. The patient is also symptomatic. Will go ahead and start her on oxygen at nighttime. She already has oxygen that she was prescribed at some point because of her cluster headaches. However I will get in touch with the [employer] company to make sure that they are providing her with the concentrator that she can use at nighttime for oxygen. She will call in to 3 weeks to give us a report on her response to therapy. In meantime she continues to use her respiratory therapy with good effect. She has been using the trazodone for sleep. Otherwise the patient is without any other complaints. 06/01/2022 the patient is here for a pulmonary follow-up visit. She has multiple complaints. First of all she did go for in-lab sleep study. Unfortunately with all 4 experience for her. She felt unsafe getting to the parking lot and then when she made it into the room she was very uncomfortable. She has multiple complaints. I reached out to administration in order for her to be able to speak to somebody regarding her complaints to try to make get a better experience. In the meantime the results were nondiagnostic. She was awake all night and she was not able to get proper sleep in order to assess the question of sleep apnea. She continues use the oxygen at nighttime. Although on the 2 L was causing her to get nauseous and headaches. She also started developing some unsteadiness on her feet and some tingling in the hands. Therefore she stopped decreased down to 1.5 L and she was still getting the same issues. She is not sure his the oxygen or another issue. At this point she is going to hold off on the oxygen until her symptoms are better and then she is going to restarted 1 L per minute. Hopefully she can tolerate the lower dose until we can get a sleep study. She is going to continue to need a repeat sleep study. Her [place] score still elevated 12/24. The patient needs to undergo a proper in-lab sleep study. I am hoping that if we can mitigate the issues that she had previously so we can redo her study. 09/16/2022 the patient is here for pulmonary follow-up visit. Overall she is doing fair. She does complaint of episodic fevers and arthralgias along with shortness of breath. She does have a diagnosis of arthritis and fibromyalgia. This are reasonable of to COVID to assess for autoimmune conditions specially since her symptoms may be all connected. In addition to that she has noticed lower extremity edema. This is not common for her. She has been wearing compression stockings. The patient continues to have daytime drowsiness. The patient is working with her primary care doctor to have the in-lab sleep study done elsewhere which she can have a better experience and also had better results. Her [place] score continues to be elevated at over 24. She continues to respond well to the oxygen at nighttime. She wants to travel little bit and I did to make a to [employer] in order to allow her to find out ways for her to have some portability when she travels. 12/23/2022 the patient is here for pulmonary follow-up visit. She has multiple complaints. Primarily due to her sinus issue. She has been getting some sinus pressure primarily in the right side. Also affecting her right ear feels that going down to her neck area. This is resulting in headaches and also dizziness. She does have a appointment with ENT coming up in the next few weeks. In the meantime she does have some retraction of the tympanic membrane on the right and a little fluid on the left. Patient also has evidence of postnasal drip. She also describes a component vasomotor rhinitis with worsening postnasal drip and nasal discharge prior to eating. this postnasal drip results in a cough. From a respiratory status appears to be doing well. She is using her oxygen at nighttime. 07/13/2023 the patient is here for sick visit. She developed COVID twice over May 2023. She also states that she had COVID back in May 2022. but, the patient has not been able to feel better after her recent COVID infections. She started developing worsening cough. Moderate severity. For the most part nonproductive although sometimes she does expectorate her mucus plug yellowish in color. Denies any fevers or chills. She feels some heaviness in her left side of the chest area. Denies any pleuritic chest discomfort. Denies any history of blood clots. She has noticed some lower extremity edema. Her pulse ox is reassuring. The patient does have some expiratory wheezing and a post exhalation cough. Therefore I did give her breathing treatment with Xopenex and ipratropium bromide. The patient did improve some now with audible wheezing. She is agreeable to take a small dose of prednisone. She can not tolerate high dose because of adverse effects. Will also treat her for postviral bacterial infection. The patient also will undergo blood work. Will check a D-dimer. If elevated she will need a CTA to rule out PE. I did review chest x-ray that she had a [facility] recently demonstrating no acute disease. If she continues to be symptomatic and her D-dimer is negative will consider CT scan of the chest noncontrast. Will see what the blood work comes out to be. If the patient has any worsening symptoms or if she has no better she will call the office for further evaluation. 09/24/2023 the patient is here for a pulmonary follow-up visit. The patient is still struggling after her COVID infection. She is followed closely by Infectious Disease. 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 She will continue working closely with Infectious Disease adjusting the dose. In the meantime the patient does have history sleep apnea. She does use oxygen at nighttime. She had a very limited sleep study in the past. Her [place] score is significantly elevated at 14 over 24. The patient needs to have a repeat in-lab sleep study at this time. Will requested at [facility] were hopefully she has a better experience. In addition to that she has been using the Asmanex. She has been having hard time expectorating. She was were wondering about a percussion vest although I explained to her that with her significant scoliosis and back pain in the fact that she does not have bronchiectasis would be a good option for her. She does have a Acapella valve. She should continue with the Xopenex followed by the hypertonic saline and then using the Acapella valve for chest PT. she will do that for a few weeks. If the patient is no better then she will call me and I will add azithromycin to her regimen. Will try to minimize medications to her patient regimen because of her adverse effects. If the patient is still not feeling better we can consider bronchoscopy for diagnostic and both therapeutic intervention. I did review her CT scan with her. The patient does have some significant scoliosis and some areas of atelectasis. 11/11/2023 the patient is here for a pulmonary follow-up visit. She is having hard time with breathing for the last couple weeks. May be related to the heat and humidity. She has been using the Asmanex once a day. She has been having hard time getting the Xopenex HFA. She does have the nebulizer solution. She does respond well to the hypertonic saline as well. Will go ahead and optimize respiratory therapy. I will send Xopenex elsewhere. In addition to that she can always use the Xopenex via nebulizer in the meantime she should be using at least twice a day. We did talk about adding her a longer acting albuterol which may work well such as salmeterol or vilanterol where she did have the beta fact not significant cardiac irritability. Still the will try to manage with medications right now to avoid any additional adverse effects. Therefore, she should be using Xopenex twice a day and she can also increase the Asmanex to twice a day. She daytime drowsiness. Her [place] score is elevated 14/24. She was scheduled to have an in-lab sleep study but then she declined to have it at [facility] because of the sleeping accommodations in her significant back issues. Therefore, she is willing to try home sleep study. Will go ahead and order it at this time 02/11/2024 the patient is here for a pulmonary follow-up visit. Overall the patient has been doing okay. She still feels that difficulty breathing primarily on the left lung. She has a significant scoliosis. She does have her CPT with the flutter valve and she also has a respiratory medications that are not completely helpful for her condition. She also complains of lower extremity edema. She did follow-up with the vascular surgeon was found to have some degree of venous insufficiency. She does wear the compression stockings during the daytime. However, even in the morning her legs are swollen. She did have an echo back in 2022 demonstrating normal pressures. Does not appear that she has a cardiac condition although we can always repeat her echocardiogram or consider a stress echo to see if she develops any pulmonary hypertension with activity. The patient will try Lasix x3 days she has done it before and that did help her some. She does maintain a low-sodium diet which is helpful. She did have a home sleep study. We did review together. She continues to have elevated [place] score of 12/24. Her sleep study was reassuring. Although was a home sleep study appeared to be adequate. Her AHI was 0.4 and she had a saturation of 88%. She still has oxygen at home and she can use it specially when she is having migraines. She also had significant amount of snoring. We did talk about elastic mandibular device that she can try. We also talked about her pulmonary nodules noted on her CT scan from 08/21/2023. She will need a repeat CT scan in 08/20/2024. The patient will follow-up then. If she has any issues prior to that she will call for an earlier assessment. 09/11/2024 the patient is here for pulmonary follow-up visit. Overall she is doing okay still complaining of cough. Moderate severity. Sometimes is more an upper airway cough syndrome sometimes she feels that she is getting some chest pressure on the left side because she has a hard time clearing her secretions. That is intermittent. She has had a full cardiac workup which was reassuring per the patient. The patient has not had any continue sometime though. She has a hard time tolerating a lot of medications because they may interact or cause other adverse effects. But for now will going to go ahead and try to optimize her current medications and just maximize the use of what she is taking to see if we can allow some relief of her symptoms. Her last CT scan was back last year August 2023 with multiple pulmonary nodules in addition to that the patient did have a question endobronchial density are blockage in the left lower lobe airway. This could account for mucus plugging or could be some foreign body. Will go ahead and request a repeat CAT scan to assess address the pulmonary nodules and to address the endobronchial density. We did talk about bronchoscopy as a very good option. She is going to think about depending on the CAT scan report. Therefore she is going to start her nebulized treatments and continue with CPT. Will add hypertonic saline in order for mucus clearance specially with her significant restrictive lung disease from her severe scoliosis. Hopefully that is enough. In addition to that she was going to increase her antihistamine therapy for cough and also continue taking her Tessalon Perles for cough. Follow-up in 3 4 months. If she has any issues prior to that she will call for an earlier assessment. 03/01/2025 the patient is here for pulmonary follow-up visit. Overall she is doing well from a respiratory status. She tolerates her respiratory medications as prescribed. She does have mucus plugs occasionally on the from the left side due to her significant scoliosis. She does take Mucinex with good effect. She takes it as needed. She also has the Acapella valve in the breather device that she can also use. We also talked about postural positional drainage. She can also attempt that in order to clear secretions. She has not nebulizer and we had send hypertonic saline that she can use also to help her with mucus clearance. She did have a CT scan back in October which we personally reviewed. Findings are stable no additional imaging studies warranted. Although she did have incomplete imaging of the stomach with some abnormalities. She did follow-up with GI she did undergo an endoscopy which is fine except for some mild gastritis. She continues to be symptomatic although she continues with the diet. I will go ahead and send her Pepcid specially since she does have underlying allergies in the Pepcid will help her both with the allergies and with the her reflux disease and gastritis. Otherwise the patient is doing well will follow-up in a year's time if she has any issues prior to this she can always call for an earlier assessment. 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 Lower extremity edema Arthralgia Fever Nocturnal hypoxia Chronic restrictive lung disease Severe scoliosis Bronchitis ALTAF (obstructive sleep apnea) Dyspnea Social History Patient Tobacco Use Status: Never used Tobacco Review of Systems Const Denies chills, Denies fatigue, Denies fever(s), Denies weight gain and Denies weight loss ENT Denies dizziness, Denies lip swelling and Denies tongue swelling Card Denies chest pain, Denies leg edema, Denies lightheadedness, Denies palpitations, Denies dyspnea on exertion, Denies orthopnea and Denies other Resp Reports chest congestion, Reports cough, Denies dyspnea on exertion and Reports wheezing GI Denies hematochezia and Denies change in stool character Musc Denies abnormal gait, Denies muscle weakness, Denies numbness, Denies radiating pain into limb and Denies tingling Skin/Breast Denies rash Neuro Denies abnormal gait, Denies dizziness, Denies numbness and Denies tingling Psych Denies no additional complaints Endo Denies fatigue and Denies palpitations Edil/Lymph Denies easy bleeding and Denies lymphadenopathy Aller/Immun Denies lip swelling, Denies tongue swelling and Reports wheezing Physical Exam Vital Signs: Last Vital Signs Pulse 81 03/01/25 13:27 BP 116/58 L 03/01/25 13:27 Pulse Ox 97 03/01/25 13:27 Oxygen Delivery Method Room Air 03/01/25 13:27 BMI result Body Mass Index 24.3 Const General: alert HEENT Ears: TM abnormal retracted on the right Throat: Yes postnasal drainage and Yes cobblestoning Neck Neck: Yes normal visual inspection, Yes full ROM and Yes no lymphadenopathy Chest Chest palpation & inspection: normal inspection of the chest Resp Effort & Inspection: normal respiratory effort Auscultation: no wheezes and diminished lung sounds Cardio Rate: regular rate Rhythm: regular rhythm Heart sounds: S1 normal heart sound present and S2 normal heart sound present GI Palpation (GI): Soft to palpation and nontender Auscultation: normal bowel sounds Skin General skin exam: rashes and/or lesions noted Extrem General: No clubbing, No cyanosis and Yes edema Assessment & Plan Assessment & Plan (1) Chronic restrictive lung disease: Code(s): J98.4 - Other disorders of lung Category: Medical (2) Dyspnea: Code(s): R06.00 - Dyspnea, unspecified Category: Medical Qualifiers: Dyspnea type: dyspnea on exertion Qualified Code(s): R06.00 - Dyspnea, unspecified (3) Severe scoliosis: Code(s): M41.9 - Scoliosis, unspecified Category: Medical (4) Nocturnal hypoxia: Comment: due to her restrictive lung disease Code(s): G47.34 - Idiopathic sleep related nonobstructive alveolar hypoventilation Category: Medical (5) Pulmonary nodules: Code(s): R91.8 - Other nonspecific abnormal finding of lung field Category: Medical Plan CPT with nebulized therapy with xopenex and hypertonic saline. postural drainage Xopenex BID and as needed continue Asmanex Acapella valve for CPT Oxygen 2 L/min while sleeping consider bronchoscopy Ipratropium nasal spray Tessalon pearls as needed F/U 8-12 months Medications: New famotidine (Pepcid) 40 mg PO BEDTIME 30 tabs 3RF 30 days Coding Level of Care Code Est Pt Level 4 (42591) Complex EM visit Add On G2211 Diagnoses Chronic restrictive lung disease J98.4 Dyspnea on exertion R06.00 Dyspnea type: dyspnea on exertion Severe scoliosis M41.9 Nocturnal hypoxia G47.34 Pulmonary nodules R91.8 Time Spent (min) 17
--- OUTSIDE RECORDS SUMMARY | 2025-03-01 16:30 | XMS_ITS | Data Portability ---
Author Organization [place] - [facility], Allergy Address [address] [place] [phone] Care Team Providers Care Rn Documentation Name Role Phone IGOR NUGENT Primary Care Provider Assessment Encounter Date Assessment Date Assessment LastModified by Organization Details LastModified Time 03/16/2024 03/16/2024 Impacted cerumen was debrided bilaterally today. Ear examination today is otherwise normal with a well aerated middle ear space. Reassurance was provided there is no middle ear fluid. She will follow up with SUYAPA Alejandro, in four months in our [place] office. [email or web address] Not available 03/16/2024 15:44:00 07/12/2024 07/12/2024 69-year-old female presents for cerumen removal. Cerumen impaction removed bilaterally. Bilateral TMs are intact with well aerated middle ear spaces. She will follow-up in 3-4 months for routine debridement, or sooner with any concerns. [email or web address] Not available 07/12/2024 11:51:22 10/23/2024 10/23/2024 69-year-old female presents for cerumen removal. Cerumen impaction removed bilaterally. Bilateral TMs are intact with well aerated middle ear spaces. She will follow-up in 3 months for routine debridement, or sooner with any concerns. [email or web address] Not available 10/23/2024 11:40:37 02/01/2025 02/01/2025 69-year-old female presents for cerumen removal and dizziness. Cerumen impaction removed bilaterally. Bilateral TMs are intact with well aerated middle ear spaces. Patient symptomatic when sitting up after Etienne-Hallpike. Recommended vestibular therapy. Updated audiometric testing was offered today, but patient declined as she subjectively denies any changes in her hearing. She will follow-up in 3 months for routine debridement and would like to have updated audiometric testing at that time. [email or web address] Not available 02/01/2025 13:40:44 Plan of Treatment Reminders Order Date Submit Date Provider Last Modified By Organization Details Last Modified Time Details Appointments Establish ed 15 2025 01:30P M KAVITA BACA PA-C Not available Not available Not available Hearing Test After 2025 02:00P M Hearing Test Not available Not available Not available Lab None recorded. Referral vestibula r therapy referral 2024 025 [facility] [place] [facility] [place] Storm, [address] [facility] , [place], [place], [address], 02/02/2025 08:57:54 Procedures None recorded. Surgeries None recorded. Imaging None recorded. Medication Orders None recorded. Patient TargetsNo targets recorded. Patient InstructionsNo instructions recorded. Reason for Referral Vestibular Therapy Referral for Benign paroxysmal positional vertigo Referring Physician: Bahman Sena, Otolaryngology, Encounter Date: 02/01/2025 Problems Name Problem SNOMED Code Status Onset Date Resolution Date Notes Provider Name and Address Organization Details Recorded Time Asymmetri isela sensorine ural hearing loss 872970803 Active 2013 Hearing loss: Sensorine ural hearing loss, asymmetri isela; Note: Date Diagnosed : 4 4:01 PM (389.16) Not Available [facility] 4 02:16:00 Subjectiv e tinnitus 81619082 Active 2013 Subjectiv e tinnitus; Note: Date Diagnosed : 4 9:15 AM (388.31) Not Available [facility] 4 02:15:29 Hyperacus is 98453759 Active 2013 Hyperacus is; Note: Date Diagnosed : 4 9:16 AM (388.42) Not Available [facility] 4 02:16:09 Jaw pain 628188381 Active 2013 Periauric ular pain of TMJ origin; Note: Date Diagnosed : 4 9:14 AM (784.92) Not Available [facility] 4 02:16:13 Patulous eustachia n tube 12394481 Active 2013 Patulous Eustachia n tube; Note: Date Diagnosed : 4 9:15 AM (381.7) Not Available [facility] 4 02:15:32 Impacted cerumen 17967431 Active 2014 Impacted cerumen; CMS Risk: low [...] ; Start Date : 5 Not Available [facility] 4 02:16:26 Non-toxic nodular goiter 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 Unspecifi ed multinodu lar goiter; Note: Date Diagnosed : 07/09/2015 5:00 PM (241.9) Not Available [facility] 4 02:16:37 Simple goiter 253306750 Active 2015 Goiter NOS; Note: Date Diagnosed : 07/09/2015 5:02 PM (E04.9) Not Available [facility] 4 02:16:34 Respirato ry finding 266521808 Active 2015 Feeling of foreign body in throat; Note: Date Diagnosed : 08/14/2015 2:31 PM (R09.89) Not Available [facility] 4 02:15:56 Cardiovas cular finding 375066184 Active 2015 Feeling of foreign body in throat; Note: Date Diagnosed : 08/14/2015 2:31 PM (R09.89) Not Available [facility] 4 02:15:56 Gastroeso phageal reflux disease without esophagit is 398399974 Active 2015 Gastro-es ophageal reflux disease without esophagit is; Note: Date Diagnosed : 08/14/2015 2:22 PM (K21.9) Not Available [facility] 4 02:16:30 Acute sinusitis 61822873 Active 2015 Other acute sinusitis ; Note: Date Diagnosed : 6 2:00 PM (J01.80) Not Available [facility] 4 02:15:23 Chronic rhinitis 01876137 Active 2016 Chronic rhinitis; Note: Date Diagnosed : 05/07/2016 1:15 PM (J31.0) Not Available [facility] 4 02:16:20 Temporoma ndibular joint disorder 52729545 Active 2016 Other specified disorders of temporoma ndibular joint; Note: Date Diagnosed : 08/03/2016 11:56 AM (M26.69) Not Available [facility] 4 02:15:59 Impacted cerumen of bilateral ears 29090992906 68271 Active 2017 Impacted cerumen, bilateral Impacted cerumen, bilateral ; Note: Date Diagnosed : 11/15/2015 2:00 PM (H61.23) ; Start Date : 6 Impacte d cerumen, bilateral ; Note: Date Diagnosed : 5 12:07 PM (H61.23) ; Start Date : 5 BAHMAN SENA PA-C [address] [place] [address], [place], [address] , [place] - [facility] 5 13:07:00 Atypical facial pain 48075347 Active 2017 Atypical facial pain; Note: Changed from R51 to G50.1 (08/05/2021 3:05 PM) , Date Diagnosed : 11/04/2017 2:34 PM (R51) Not Available [facility] 4 02:16:12 Bilateral temporoma ndibular joint pain 47231181774 950245 Active 2017 Arthralgi a of bilateral temporoma ndibular joint; Note: Date Diagnosed : 8 3:25 PM (M26.623) Not Available [facility] 4 02:15:22 Dizziness and giddiness 387755670 Active 2018 Dizziness and giddiness ; Note: Date Diagnosed : 10/31/2018 2:32 PM (R42) Light-h eadedness ; Note: Date Diagnosed : 8 3:25 PM (R42) ; Start Date : 8 Dizzine ss and giddiness ; Note: Date Diagnosed : 02/03/2018 1:18 PM (R42) ; Start Date : 8 Not Available [facility] 4 02:15:28 Bilateral tinnitus 20700044634 02 Active 2018 Tinnitus, bilateral ; Note: Date Diagnosed : 10/31/2018 2:32 PM (H93.13) Not Available [facility] 4 02:15:57 Anxiety disorder 665697781 Active 2018 Anxiety disorder, unspecifi ed; Note: Date Diagnosed : 11/21/2018 6:32 PM (F41.9) Not Available [facility] 4 02:15:43 Refractor y migraine 804584291 Active 2018 Other migraine, intractab le, without status migrainos us; Note: Date Diagnosed : 11/21/2018 5:12 PM (G43.819) Not Available [facility] 4 02:16:09 Sensorine ural hearing loss 34651297 Active 2019 Sensorine ural hearing loss, unilatera l, left ear, with unrestric shanda hearing on the contralat eral side; Note: Date Diagnosed : 01/12/2020 4:33 PM (H90.42) Not Available [facility] 4 02:15:39 Impacted cerumen in right ear 87367398557 13652 Active 2022 Impacted cerumen, right ear; Note: Date Diagnosed : 09/16/2022 4:00 PM (H61.21) Not Available [facility] 4 02:15:39 Disorder of right Eustachia n tube 76333992926 09290 Active 2022 Other specified disorders of Eustachia n tube, right ear; Note: Date Diagnosed : 02/05/2023 5:03 PM (H69.81) Not Available [facility] 4 02:15:20 Otalgia of right ear 3331370438 Active 2022 Otalgia, right ear; Note: Date Diagnosed : 02/05/2023 3:27 PM (H92.01) Otalgia , right ear; Note: Date Diagnosed : 8 1:33 PM (H92.01) ; Start Date : 8 Not Available [facility] 4 02:16:16 Pain of right temporoma ndibular joint 73364435617 859645 Active 2022 Arthralgi a of right temporoma ndibular joint; Note: Date Diagnosed : 02/05/2023 5:03 PM (M26.621) Not Available [facility] 4 02:16:01 Abnormal auditory perceptio n 75444319 Active 2022 Other abnormal auditory perceptio ns, bilateral ; Note: Date Diagnosed : 02/05/2023 4:09 PM (H93.293) Other abnormal auditory perceptio ns, bilateral ; Note: Date Diagnosed : 02/01/2017 1:28 PM (H93.293) ; Start Date : 7 Not Available [facility] 4 02:15:55 Benign paroxysma l positiona l vertigo 318317627 Active 2024 BAHMAN SENA PA-C [address] [place] [address],[place] [address], [place], [phone] , [facility] - [facility] 5 13:39:04 Problem Notes None recorded. Procedures Surgical History Date Name Laterality Status Provider Name and Address Organization Details Recorded Time Cerumen removal without microscope bilat completed BAHMAN SENA PA-C [address] [place] [address],[place] [address], [place], [address], [place] - [facility] 02/01/2025 13:06:56 5 Cerumen removal without microscope bilat completed BAHMAN SENA PA-C [address] [facility],[address], [address], [facility] - [facility] 10/23/2024 11:24:52 5 Cerumen removal without microscope bilat completed BAHMAN SENA PA-C [address] [facility],[address], [address], [facility] 07/12/2024 11:50:14 Imaging Results None recorded. Procedure Notes None recorded. Medical Equipment None Reported. Allergies Allergen ID Allergen Name Allergen Category Reaction Reaction Severity Criticality Documentation Date Start Date Code Code System Note Provider Name and Address Organization Details Recorded Time 92399 doxycycli ne hyclate medicatio n angioedem a Not available Not available 09/14/2023 13570 RxNorm React ion: swell ing of tongu e or mouth ;; Not Available [facility] 4 00:52:26 77329 Depo-Medr ol medicatio n other Not available Not available 09/14/2023 79482 RxNorm React ion: unkno wn, unspe cifie d;; Not Available [facility] 4 00:52:34 Medications Name Sig Start Date Stop Date Status Note LastModified by Organization Details LastModified Time Singulair 10 mg tablet Take 1 tablet by mouth 05/07 completed Medicati on ID: [id number] B rand Name: Robyn medina Send Method: E-Prescr ibed Sub s Allowed: subs OK Speci al Instruct ion: Take 1 tablet by mouth every day in the evening Medicati onGeneri cName: Singulai r Not Available Not Available Not Available carisopro dol 350 mg tablet active Not Available Not Available No t Available cyclobenz aprine 10 mg tablet 02/21 completed Medicati on ID: 09646 Du ration Value: 30 Reason: () Brand Name: cycloben zaprine Send Method: E-Prescr ibed Sub s Allowed: subs OK Speci al Instruct ion: TAKE 3 TABS EVERY NIGHT Me dication GenericN micheline: cycloben zaprine Not Available Not Available Not Available Miralax 17 gram/dose oral powder 2016 active Medicati on ID: [id number] B rand Name: Miralax Send Method: E-Prescr [...] mg tablet 03/14 completed Medicati on ID: [id number] D uration Value: 14 Brand Name: clonidin [...] gram tablet 02/21 completed Medicati on ID: 08757 Du ration Value: 7 Reason: () Brand Name: valacycl ovir Sen d Method: E-Prescr ibed Sub s Allowed: subs OK Speci al Instruct ion: TAKE 1 TABLET BY MOUTH EVERY 8 HOURS Me dication GenericN micheline: valacycl ovir Not Available Not Available Not Available amoxicill in 600 mg-potass ium clavulana te 42.9 mg/5 mL oral suspensio n 03/14 completed Medicati on ID: [id number] D uration Value: 10 Brand Name: amoxicil [...] mg tablet 03/14 completed Medicati on ID: 177548 D uration Value: 30 Brand Name: clonazep [...] mg tablet 02/21 completed Medicati on ID: 32722 Du ration Value: 30 Reason: () Brand [...] mg tablet 06/15 completed Medicati on ID: 99183 Du ration Value: 30 Reason: () Brand Name: spironol actone S end Method: E-Prescr ibed Sub s Allowed: subs OK Medic ationGen ericName : spironol actone Not Available Not Available Not Available amoxicill in 500 mg tablet 1 tablet by mouth 11/04 completed Medicati on ID: 108645 Geena ann d By Name: AGNES Nicole nd Name: [...] mg tablet 02/21 completed Medicati on ID: 42690 Du ration Value: 7 Reason: () Brand Name: amoxicil radha Send Method: E-Prescr ibed Sub s Allowed: subs OK Speci al Instruct ion: TAKE 1 TABLET TWICE A DAY Medi cationGe nericNam e: amoxicil radha Not Available Not Available Not Available famotidin e 20 mg tablet 1 tablet by mouth 07/12 completed Medicati on ID: [id number] Geena ann d By Name: AGNES Nicole nd Name: famotidi ne Send Method: E-Prescr ibed Sub s Allowed: subs OK Medic ationGen ericName : famotidi ne Not Available Not Available Not Available lorazepam 0.5 mg tablet 2017 active Medicati on ID: [id number] D uration Value: 30 Brand Name: lorazepa m Send Method: E-Prescr ibed Sub s Allowed: subs OK Speci al Instruct ion: TAKE 1 TABLET BY MOUTH THREE TIMES A DAY NEEDED M edicatio nGeneric Name: lorazepa m Not Available Not Available Not Available amitripty line 10 mg tablet 03/14 completed Medicati on ID: 48968 Du ration Value: 90 Brand Name: amitript yline Se nd Method: E-Prescr ibed Sub s Allowed: subs OK Medic ationGen ericName : amitript yline Not Available Not Available Not Available meclizine 25 mg tablet 03/14 completed Medicati on ID: 357711 D uration Value: 30 Brand Name: meclizin e Send Method: E-Prescr ibed Sub s Allowed: subs OK Medic ationGen ericName : meclizin e Not Available Not Available Not Available benzonata te 100 mg capsule active Not Available Not Available Not Available doxycycli ne monohydra te 100 mg capsule 02/21 completed Medicati on ID: 82087 Du ration Value: 30 Reason: () Brand Name: doxycycl ine monohydr ate Send Method: E-Prescr ibed Sub s Allowed: subs OK Medic ationGen ericName : doxycycl ine monohydr ate Not Available Not Available Not Available Robaxin-7 50 750 mg tablet 11/04 completed Medicati on ID: 780999 B rand Name: Robdennis- 750 Send Method: E-Prescr ibed Sub s [...] active Not Available Not Available Not Available celecoxib 100 mg capsule TAKE 1 CAPSULE BY MOUTH TWICE A DAY FOR 30 DAYS active Not Available Not Available No t Available ketoconaz ole 2 % topical cream APPLY TWICE DAILY TO RASH UNTIL RESOLVED THEN 1 MORE WEEK active Not Available Not Available No t Available fluticaso ne propionat e 50 mcg/actua tion nasal spray,[facility] 2014 active Medicati on ID: 13912 Du ration Value: 30 Brand Name: fluticas one Send Method: E-Prescr ibed Sub s Allowed: subs OK Speci al Instruct ion: USE 1 SPRAY IN EACH NOSTRIL TWICE A DAY Medi cationGe nericNam e: fluticas one Not Available Not Available Not Available doxycycli ne hyclate 100 mg tablet 1 tablet by mouth 02/12 completed Medicati on ID: 187811 D uration Value: 10 Prescri bed By [...] Not Available Not Available No t Available lactulose 10 gram/15 mL oral solution TAKE 30 ML (20 G TOTAL) BY MOUTH 1 (ONE) TIME EACH DAY. active Not Available Not Available No t Available Xopenex HFA 45 mcg/actua tion aerosol inhaler active Not Available Not Available Not Available Probiotic 2016 active Medicati on ID: 941602 B rand Name: probioti c Send Method: E-Prescr ibed Sub s Allowed: subs OK Medic ationGen ericName : probioti c Not Available Not Available Not Available Folgard 2,000 unit-800 mcg-0.32 mg tablet 2016 active Medicati on ID: 898428 B rand Name: Folgard Send Method: E-Prescr ibed Sub s Allowed: subs OK Medic ationGen ericName : Folgard Not Available Not Available Not Available melatonin 1 mg sublingua l tablet 2016 active Medicati on ID: 532535 B rand Name: melatoni n Send Method: [...] and Address Organization Details Last Updated DateTime 02/01/2025 170.18 cm 23.5 kg/m2 57832.86 g Citlaly Hernandez [place] - [facility] 02/01/2025 13:03:58 Date Recorded Body height Body mass index (BMI) Body weight Provider Name and Address Organization Details Last Updated DateTime 03/16/2024 170.18 cm 23.5 kg/m2 85092.86 g Papa Naik [place] - [facility] 03/16/2024 15:26:57 Social History None recorded. Functional Status None recorded. Mental Status None recorded. Family History Nothing Reported. Medical History Condition Response Allergies/Hayfever Y Heart Problems N Anxiety Y Tonsil Infections N Emphysema N Migraines N Thyroid Problems Y Glaucoma N Developmental Delay N Depression N COPD N Nasal or Sinus Problems Y Anemia Y Immune System Disorder Y Anesthesia Complications N Heart Attack ([place]) N Other Skin Condition N Diabetes N Rhinitis Y Bleeding Disorder N Food Allergy Y Hearing Loss N Arthritis Y Hyperlipidemia N Cancer N Stroke N Dementia N Nasal polyps N Asthma Y Sleep Disorder Y High Cholesterol N GERD/Reflux Y Liver Disease Y Headaches Y Fibromyalgia Y Hypertension N Speech Delay N Kidney Disease N Gynecological HistoryNo gynecological history recorded. Obstetrics History GPAL:G 0 P 0 0 0 0 Past Encounters Encounter ID Performer Location Encounter Start Date Encounter Closed Date Diagnosis/Indication Diagnosis SNOMED-CT Code Diagnosis ICD10 Code Diagnosis IMO Codes Diagnosis Note [id number] YVETTE JOYNER PA-C [facility] [address] [place] [address] 03/16/2024 15:10:42 03/16/2024 15:39:23 Impacted cerumen of bilateral ears 5920747719 692218 H61.23 [id number] BAHMAN SENA PA-C [facility] [address] [address] 07/12/2024 11:25:26 07/12/2024 11:48:55 Impacted cerumen of bilateral ears 7441273427 359567 H61.23 [id number] BAHMAN SENA PA-C [facility] [address] [address] 10/23/2024 11:22:58 10/23/2024 11:49:08 Impacted cerumen of bilateral ears 0515873841 764567 H61.23 [id number] BAHMAN SENA PA-C [facility] [address] [address] 02/01/2025 12:50:12 02/01/2025 13:37:42 Impacted cerumen of bilateral ears 3033145654 386456 H61.23 Benign par oxysmal positional vertigo 426299306 H81.11 [id number] Health Concerns Section Related Observation LastModified by Organization Detai ls LastModified Time None Recorded Concern Status LastModified by Organization Details LastModified Time None Recorded Advance Directives Directive None Recorded Payers Insurance Date Sequence Insurance Name Policy Number Policy Booker Covered Member ID Booker Member ID Guarantor Name 02/01/2025 1 [place]ICARE [place]: [employer] Kim Doan [id number] Kim Doan 02/01/2025 2 FOR LIFE ( - MEDICARE SUPPLEMENT) Kim Doan [id number] Kim Doan Notes Date Note Type Note Provider Name and Address Organization Details Recorded Time 03/16/2024 text/html ROS as noted in the [facility] 69 year old female presents today for cerumen removal.She has not been seen in about one year. Previously seen every four months or so.Long standing history of right sided facial pressure that has been evaluated in our office previously, and felt to be related to TMJ. SUMA LUQUE MD [address] [place] [address], [phone], [place] - [facility] 03/16/2024 17:28:58 07/12/2024 text/html ROS as noted in the [facility] 69 year old female presents for cerumen removal. No concerns today. Long standing history of right sided facial pressure that has been evaluated in our office previously, and felt to be related to TMJ. JUAN PIÑA MD [address] [place] [address], [phone], [place] - [facility] 07/12/2024 17:26:33 10/23/2024 text/html ROS as noted in the [facility] 69 year old female presents for cerumen removal. No concerns today. Long standing history of right sided facial pressure that has been evaluated in our office previously, and felt to be related to TMJ. JUAN PIÑA MD [address] [place] [address], [phone], [place] - [facility] 10/25/2024 08:27:59 02/01/2025 text/html ROS as noted in the [facility] 69 year old female presents for cerumen removal. Reports having an episode of dizziness when rolling over in bed that lasted a few minutes about 10 days ago. Denies room spinning dizziness, but still feels a little off . Tinnitus is bilateral and stable. Denies otalgia, otorrhea, or changes in her hearing. Long standing history of right sided facial pressure that has been evaluated in our office previously, and felt to be related to TMJ. ADITYA TALAMANTES MD [address] [place] [address], [phone], [place] - [facility] 02/05/2025 13:05:31 OBGyn Episode No OBEpisode recorded.
== END 2025-03-01 14:02 | disposition home or self-care (01) ==
LOC: HO.HPS 13:25
PROVIDERS: PCP Family Medicine; Visit Provider Hospitalist
DX: J98.4 Other disorders of lung (principal); R06.00 Dyspnea, unspecified; M41.9 Scoliosis, unspecified; G47.34 Idiopathic sleep related nonobstructive alveolar hypoventilation; R91.8 Other nonspecific abnormal finding of lung field
CPT/HCPCS: 99214; G2211

== ENCOUNTER → 2025-03-01 13:25 | Outpatient (BNVA) | payer MEDICARE, OTHER, SELFPAY | PROVIDERS: PCP Family Medicine; Visit Provider Hospitalist | DX: R91.8 Other nonspecific abnormal finding of lung field (principal); R06.00 Dyspnea, unspecified; J98.4 Other disorders of lung; M41.9 Scoliosis, unspecified; M54.9 Dorsalgia, unspecified; Z98.1 Arthrodesis status; K21.9 Gastro-esophageal reflux disease without esophagitis; G47.34 Idiopathic sleep related nonobstructive alveolar hypoventilation; Z87.09 Personal history of other diseases of the respiratory system; Z99.81 Dependence on supplemental oxygen; Z79.899 Other long term (current) drug therapy | CPT/HCPCS: 99212 ==